=== PATIENT | male | born 1940 | race Caucasian/White ===

== ENCOUNTER → 2017-09-12 | Outpatient (CLI) | payer OTHER ==
[~2017-09-12] MED LIST: ASPCH81X PO; ASPI325T39 PO; CALCTAB5 PO; CYAN10005 PO; GLUC10007 PO; METO25TA56 PO; NAPR-22 PO; PRLSR20 PO; RSTOPS OP; SIMV20TA2 PO
[2017-09-12 11:13] LABS: BASO % 0.5 %; BASO ABS # 0.02 K/uL (0-0.2); EOS % 6.3 %; EOS ABS # 0.26 K/uL (0-0.5); HEMATOCRIT 41.5 % (42-52); HEMOGLOBIN 13.8 g/dL (14.0-18.0); IG# 0.01 K/uL (0.00-0.02); LYMPH % 27.6 %; LYMPH ABS # 1.14 K/uL (1.2-3.4); MEAN CELL VOLUME 92.6 fL (80-100); MEAN CORPUSCULAR HEMOGLOBIN 30.8 pg (25-34); MEAN CORPUSCULAR HGB CONC 33.3 g/dl (32-36); MEAN PLATELET VOLUME 10.5 fL (7.4-10.4); MONO % 10.7 %; MONO ABS # 0.44 K/uL (0.11-0.59); NEUT % 54.7 %; NEUT ABS # 2.26 K/uL (1.4-6.5); PLATELET COUNT 180 K/uL (130-400); RED CELL DISTRIBUTION WIDTH CV 14.8 % (11.5-14.5); RED CELL DISTRIBUTION WIDTH SD 50.6 fL (36.4-46.3); WHITE BLOOD COUNT 4.13 K/uL (4.8-10.8)
[2017-09-12 11:40] LABS: ALBUMIN 3.8 gm/dl (3.4-5.0); ALT/SGPT 24 U/L (12-78); AST/SGOT 25 U/L (15-37); BLOOD UREA NITROGEN 29 mg/dl (7-18); CALCIUM 8.8 mg/dl (8.5-10.1); CARBON DIOXIDE 26 mmol/L (21-32); CREATININE 1.11 mg/dl (0.60-1.40); GLUCOSE 87 mg/dl (70-99); POTASSIUM 4.4 mmol/L (3.5-5.1); SODIUM 140 mmol/L (136-145)
[2017-09-12 11:44] LABS: ALKALINE PHOSPHATASE 96 U/L (45-117); CHOLESTEROL 174 mg/dl (0-200); LDL CHOLESTEROL CALCULATED 96 mg/dl; TOTAL PROTEIN 7.3 gm/dl (6.4-8.2)
--- NOTE | 2017-09-18 09:03 | CODING QUERY MEDICAL NECESSITY ---
CQSUPPORTING DIAGNOSIS NEEDED A supporting diagnosis is required for the test/procedure performed on this patient in order for us to be reimbursed by the patient's insurance. Please provide a supporting diagnosis for the following test/procedure listed below next to the test name along with your signature. *If there is no additional diagnosis for this patient that would support the following test/procedure please document that below next to the test/procedure. Test(s)/Procedure(s) that require a supporting diagnosis: DOS 09/12/17 PROSTATE SPECIFIC TEST LIPID TEST Provider Signature: Date: Thank you Caitie [facility] Once completed, please kindly fax back to [phone] For questions please call [phone]
== END | disposition home or self-care (01) ==
LOC: C.LABBC 08:11
PROVIDERS: ATTEND Internal Medicine
DX: M54.5 Low back pain (principal); E53.8 Deficiency of other specified B group vitamins

== ENCOUNTER 2021-11-10 10:14 | Observation (INO) ==
--- NOTE | 2021-10-05 15:09 | PAT Medication Instructions ---
Medication Instructions Date of Service October 05, 2021 Home Medications Medication Instructions Recorded simvastatin 20 mg tablet (Zocor) 20 mg PO HS #90 tab 06/13/21 metoprolol tartrate 25 mg tablet 25 mg PO BID #180 tab 09/12/21 acetaminophen 325 mg tablet (Tylenol) 1 - 2 tabs PO Q6H PRN aspirin 81 mg tablet,delayed release (Aspir-) 81 mg PO QAM calcium carbonate 600 mg calcium (1,500 mg) tablet (Calcium) 600 mg PO QAM cyanocobalamin (vitamin B-12) 1,000 mcg tablet (Vitamin B-12) 1,000 mcg PO HS docusate sodium 100 mg capsule (Colace) 100 mg PO QAM simvastatin 20 mg tablet (Zocor) 20 mg PO HS metoprolol tartrate 25 mg tablet 25 mg PO BID glucosamine sulf dipot chlr,msm,chond 550 mg-C 30 mg-debbie 1 mg capsule (Glucosamine Chondroitin) 1 cap PO BID naproxen 500 mg tablet 500 mg PO BID omeprazole 20 mg capsule,delayed release 20 mg PO QAM ASK your surgeon for instructions naproxen 500 mg tablet 500 mg PO BID STOP taking 2 weeks before surgery glucosamine sulf dipot chlr,msm,chond 550 mg-C 30 mg-debbie 1 mg capsule (Glucosamine Chondroitin) 1 cap PO BID DO NOT take the morning of surgery calcium carbonate 600 mg calcium (1,500 mg) tablet (Calcium) 600 mg PO QAM docusate sodium 100 mg capsule (Colace) 100 mg PO QAM Take morning of surgery With a small sip of water, OTHERWISE NOTHING TO EAT OR DRINK AFTER MIDNIGHT: omeprazole 20 mg capsule,delayed release 20 mg PO QAM acetaminophen 325 mg tablet (Tylenol) 1 - 2 tabs PO Q6H PRN (okay to take up to 4 hours prior to surgery if needed) aspirin 81 mg tablet,delayed release (Aspir-) 81 mg PO QAM (unless surgeon directs otherwise) metoprolol tartrate 25 mg tablet 25 mg PO BID Take evening before surgery acetaminophen 325 mg tablet (Tylenol) 1 - 2 tabs PO Q6H PRN (if needed) cyanocobalamin (vitamin B-12) 1,000 mcg tablet (Vitamin B-12) 1,000 mcg PO HS simvastatin 20 mg tablet (Zocor) 20 mg PO HS metoprolol tartrate 25 mg tablet 25 mg PO BID Other Notes If you have any questions please call us at [phone] or [phone] or [phone] or [phone]
--- NOTE | 2021-10-11 14:46 | Anesthesiology Consultation ---
Date of Service October 11, 2021 Assessment & Plan (1) Encounter for pre-operative examination: Chart Review Chart Review: Acceptable Risk for Surgery (pending preop Covid testing results ) and Patient seen in Pre Admission Testing -Due to age- pt is NOT a Same Day Joint candidate Per PAT appt on 10/11/21, patient denies any recent travel or large group activities. No known Covid positive exposures or Covid related symptoms. No known Covid infection in the past 90 days. Pt is vaccinated for Covid. Preop Covid testing scheduled 11/08/21= will await results. Educated on importance of self quarantining, social distancing and wearing mask in public for the patient one week prior to surgery and after Covid testing done Pt seen by PCP 09/20/21= elevated BP- repeat BP WNL. Encouraged home monitoring. Please of CADclinically asymptomatic. Aortic stenosisstatus post AVR (2013). Clinically doing well. Follows routinely with cardiology. Chronic mild anemia. 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 Reviewed orthopedic note with him. He is scheduled for total shoulder replacement 11/2021. OA- continue with pain management. Seen by cardiology 03/14/21= aortic stenosis- s/p AVR- functioning properly per 02/2020 ECHO. Resolved valvular CM. Mild nonobstructive CAD- asymptomatic. Peripheral edema- suspect venous insufficiency- minimally symptomatic. " Continues to do very well from a cardiac standpoint. Exercising regularly with no new symptoms. No signs of heart failure on exam or new PVD on exam. Blood pressure reasonably controlled on repeat check today. Bioprosthetic aortic valve functioning appropriately on last echo 1 year ago. Repeat surveillance echo in 2 years. Continue current aspirin, beta-sachin, statin. Follow-up in 1 year." Teaching & Discussion Pre-Anesthesia Teaching/Discussion Notes: Instructed NPO after midnight before surgery,except medications with 15 cc of water. Medication instructions provided according to the PAT guidelines. History Surgery Operation Date: 11/10/21 08:45 Proposed Procedures p Right Total Shoulder Arthroplasty Julius - Norman Doyle DO Height/Weight Height: 5 ft 10.5 in Weight: 96.6 kg Allergies Allergy/AdvReac Type Severity Reaction Status Date / Time morphine AdvReac Mild GI SYMPTOMS Verified 10/05/21 14:02 Medications Home Medications Medication Instructions Recorded Confirmed Last Taken acetaminophen 325 mg tablet 1 - 2 tabs PO Q6H PRN 08/02/18 10/05/21 Unknown (Tylenol) aspirin 81 mg tablet,delayed 81 mg PO QAM 08/02/18 10/05/21 Unknown release (Aspir-) calcium carbonate 600 mg calcium 600 mg PO QAM 08/02/18 10/05/21 Unknown (1,500 mg) tablet (Calcium) cyanocobalamin (vitamin B-12) 1,000 mcg PO HS 08/02/18 10/05/21 Unknown 1,000 mcg tablet (Vitamin B-12) docusate sodium 100 mg capsule 100 mg PO QAM 08/02/18 10/05/21 Unknown (Colace) simvastatin 20 mg tablet (Zocor) 20 mg PO HS #90 tab 06/13/21 10/05/21 Unknown metoprolol tartrate 25 mg tablet 25 mg PO BID #180 tab 09/12/21 10/05/21 Unknown glucosamine sulf dipot 1 cap PO BID 10/05/21 10/05/21 Unknown chlr,msm,chond 550 mg-C 30 mg-debbie 1 mg capsule (Glucosamine Chondroitin) naproxen 500 mg tablet 500 mg PO BID 10/05/21 10/05/21 Unknown omeprazole 20 mg capsule,delayed 20 mg PO QAM 10/05/21 10/05/21 Unknown release Past Medical History Medical History (Updated 10/11/21 @ 16:55 by Zahra King PA-C) Acid reflux Controlled and stable Aortic stenosis s/p AVR, well functioning per 2020 ECHO. 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 Postoperative atrial fibrillation with AVR No mention of a fib with most recent cardio records Exercise / Class Metabolic Activity II 4-5 Yardwork/Stairs/Walk up hill (one flight of stairs- no chest pain or SOB - rides bike when weather permits- 20 miles per day ) Past Family History Family History Father Heart disease Mother Heart disease Sister Colorectal cancer Brother Renal carcinoma Hypertension Other No family history of adverse response to anesthesia Denies family history of Ovarian cancer Prostate cancer Myocardial infarction Breast cancer Lung cancer Past Surgical History Surgical History History of arthroscopic knee surgery History of bilateral cataract extraction History of blepharoplasty History of cardiac cath (~02/19/14) @ [facility] prior to AVR History of colonoscopy History of sinus surgery pt states he fractured his skull above right eye and had area packed @ [facility] History of tooth extraction History of ventral hernia repair right sided S/P aortic valve replacement (~2013) @ [facility] [place]--bioprosthetic--follows with Dr. Barry [place] Past Anesthesia History No Hx of Anesthesia Complications and No Family Hx of Anesthesia Complications History of PONV No Hx of PONV and No Hx of Motion Sickness Social History Smoking Status: Former smoker Do You Dip or Chew Tobacco: No (quit snuff 30 yrs ago) Smoking End Date: quit 55yrs ago Hx Alcohol Use: No Hx Substance Use: No substance use type: does not use Review of Systems Patient denies chest pain, shortness of breath, dyspnea on exertion, reflux, cough, wheezing, palpitations. No hx of seizures, stroke, CT, apnea/snoring. No hx of blood clots or blood transfusions Physical Exam Vital Signs VITALS BP 162/87 (pt states usually better controlled- BP at PCP office 09/20/21 initially 161/98- but on recheck was 134/84) P 60 TEMP 97.7 SP02 96% RESP 16 Constitutional no acute distress ENMT Mouth: no TMJ clicking Thyromental Distance: > or= 3.5 Finger Breadths (3.5) Mallampati Class: II (smaller airway ) Missing molars/side teeth Permanet upper front implants Neck + limited neck extension (mild ) Respiratory normal respiratory effort; no respiratory distress Auscultation: lungs clear to auscultation bilaterally; no wheezes Cardiovascular Rate/Rhythm: regular rate and regular rhythm Heart Sounds: + murmur (I-II/ murmur ) Vessels: no carotid bruit Musculoskeletal Spine: no pain with cervical ROM Extremities: extremities normal to inspection Psychiatric Orientation: alert Lab Results Anesthesia Preop Results Results Anesthesia Widget: WBC 4.65 K/uL (4.8-10.8) L 10/11/21 Hgb 12.7 g/dL (14.0-18.0) L 10/11/21 Hct 38.1 % (42-52) L 10/11/21 Plt 172 K/uL (130-400) 10/11/21 Na 139 mmol/L (136-145) 10/11/21 K 5.1 mmol/L (3.5-5.1) 10/11/21 Cl 108 mmol/L (98-107) H 10/11/21 CO2 28 mmol/L (21-32) 10/11/21 BUN 27 mg/dl (6-23) H 10/11/21 Creat 1.01 mg/dl (0.6-1.4) 10/11/21 Glucose Level 85 mg/dl (70-99(Fasting)) 10/11/21 PT 10.3 Seconds (9.0-12.0) 10/11/21 PTT 26.2 Seconds (21.0-31.0) 10/11/21 INR 1.0 (0.9-1.1) 10/11/21 Blood Type A Positive 10/11/21 Antibody Screen NEGATIVE 10/11/21 Testing Electrocardiogram Date: 10/11/21 Rhythm with first-degree AV block at 61 bpm. Right bundle branch block. When compared to EKG from January 31, 2010PR interval has increased, right bundle branch block is now present per cardio. Chest X-Ray Date: 10/11/21 Findings: + NAD Unchanged left hemidiaphragmatic elevation. Echocardiogram Date: 03/01/20 EF: 55-60% LV Function: normal RWMA: + none Other Findings: + LVH (mild/concentric ) and + diastolic dysfunction (Grade I ) Normal RV size and function. LA moderately dilated Well seated bioprosthetic AV with expected transvalvular gradients. Mild to moderate MR. Mild TR. Mildly dilated ascending aorta. Compared to prior study on 02/19/17- MR now mild to moderate. No other significant changes
--- NOTE | 2021-11-10 06:32 | History & Physical Report ---
Date of Service November 10, 2021 Assessment & Plan (1) Rotator cuff arthropathy of right shoulder: We will proceed with a right reverse shoulder arthroplasty. Postoperatively he will be placed in a sling and kept overnight for postoperative medical management. He plans to use energy physical therapy upon discharge. History of Present Illness Chief Complaint: Cuff tear arthropathy of the right shoulder. Primary Care Provider: Juancho Jane MD Henrik is a pleasant 81-year-old male who is been doing with chronic worsening right shoulder pain. 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 It is quite painful. He has never had surgery to his right shoulder before. 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 After failing conservative treatment, he elected proceed with a right reverse shoulder arthroplasty. Allergies Allergy/AdvReac Type Severity Reaction Status Date / Time morphine AdvReac Mild GI SYMPTOMS Verified 10/05/21 14:02 Home Medications Medication Instructions Recorded Confirmed Type acetaminophen 325 mg tablet 1 - 2 tabs PO Q6H PRN 08/02/18 10/05/21 History (Tylenol) aspirin 81 mg tablet,delayed 81 mg PO QAM 08/02/18 10/05/21 History release (Aspir-) calcium carbonate 600 mg calcium 600 mg PO QAM 08/02/18 10/05/21 History (1,500 mg) tablet (Calcium) cyanocobalamin (vitamin B-12) 1,000 mcg PO HS 08/02/18 10/05/21 History 1,000 mcg tablet (Vitamin B-12) docusate sodium 100 mg capsule 100 mg PO QAM 08/02/18 10/05/21 History (Colace) simvastatin 20 mg tablet (Zocor) 20 mg PO HS #90 tab 06/13/21 10/05/21 Rx metoprolol tartrate 25 mg tablet 25 mg PO BID #180 tab 09/12/21 10/05/21 Rx glucosamine sulf dipot 1 cap PO BID 10/05/21 10/05/21 History chlr,msm,chond 550 mg-C 30 mg-debbie 1 mg capsule (Glucosamine Chondroitin) omeprazole 20 mg capsule,delayed 20 mg PO QAM 10/05/21 10/05/21 History release naproxen 500 mg tablet 500 mg PO BID PRN #60 tab 11/06/21 Rx Past Med/Surg History Medical History Acid reflux Controlled and stable Aortic stenosis s/p AVR, well functioning per 2020 ECHO. 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 Postoperative atrial fibrillation with AVR No mention of a fib with most recent cardio records Surgical History History of arthroscopic knee surgery History of bilateral cataract extraction History of blepharoplasty History of cardiac cath (~02/19/14) @ [facility] prior to AVR History of colonoscopy History of sinus surgery pt states he fractured his skull above right eye and had area packed @ [facility] History of tooth extraction History of ventral hernia repair right sided S/P aortic valve replacement (~2013) @ [facility] [place]--bioprosthetic--follows with Dr. Jhonny LOPEZ Family History Father Heart disease Mother Heart disease Sister Colorectal cancer Brother Renal carcinoma Hypertension Other No family history of adverse response to anesthesia Denies family history of Ovarian cancer Prostate cancer Myocardial infarction Breast cancer Lung cancer Social History Smoking Status: Former smoker Tobacco Type: Cigars Second Hand Exposure: No; Hx Alcohol Use: No Hx Substance Use: No Preferred Language: Kyrgyz Communication Ability: Effective Visual Impairment: Limited Hearing Ability: Normal Cleaning Associate Required: No Beliefs That Will Affect Care: None marital status: Current Living Situation: Spouse current occupational status: retired How many Children do You have: 5 Feels Safe at Home: Yes Childhood Exposure to Second-Hand Smoke: Yes (dad did when he was real young) caffeine: Yes (coffee ) Dental Care, Regularly: Yes Physical Activity Frequency: 5-6 Times per Week Physical Activity Frequency Comment: rides his bike Seatbelt Use: never Sunscreen Use: No Assistive Devices: Glasses Review of Systems All systems reviewed & are unremarkable except as noted in HPI & below. Physical Exam On physical examination of the right shoulder, he only has about 10 degrees forward elevation 10 degrees of abduction. Passively I can get him through a near full range of motion. He has a palpable 2 out of 5 muscle strength throughout. Constitutional WD/WN, vitals as above Eyes PERRL, conjunctivae normal, anicteric sclerae ENMT external ear and nose normal, oropharynx normal Neck trachea midline, no thyromegaly Respiratory normal respiratory effort Cardiovascular RRR, no murmur, no edema Gastrointestinal (Abdomen) normal bowel sounds, soft, nontender, no hepatosplenomegaly Psychiatric A+Ox3, euthymic affect Results & Data Results & Data Laboratory Results . Diagnostic Findings X-rays of the right shoulder do show superior migration of the humeral head of the glenoid. The humeral heads articulating with the acromium. There is significant arthritis throughout. PG Care Time/CCT Total # of Minutes Spent Total Time Spent with Patient: Total time spent is greater than 50% in coordination of care (as documented) at patient's floor/unit and/or counseling patient: Coding Level of Care Code None Diagnoses Rotator cuff arthropathy of right shoulder M12.811
[~2021-11-10 10:14] MED LIST changes: +ACETAMINOPHEN 500 MG TAB PO SCH; -ASPCH81X PO; -ASPI325T39 PO; +BUPIVACAINE 0.5 % 5 MG/1 ML PF 10ML VIAL ONE; -CALCTAB5 PO; -CYAN10005 PO; +FAMOTIDINE 20 MG TAB PO SCH; +GABAPENTIN 300 MG CAP PO SCH; -GLUC10007 PO; +Ketorolac (*for OR use only*) 30 MG, dexAMETHasone 4 MG, KETAMINE HCL (**OR use only) 1... INFIL SCH; +LR 15ML/HR IV SCH; +LR 60ML/HR IV SCH; -METO25TA56 PO; -NAPR-22 PO; -PRLSR20 PO; -RSTOPS OP; -SIMV20TA2 PO; +TRANEXAMIC ACID 1,000 MG **IV Intra-op IV SCH; +TRANEXAMIC ACID 1,000 MG **IV Pre-op IV SCH; +ceFAZolin 2000MG 2,000 MG/15 ML SYR IV SCH; +dexAMETHasone 4 MG TAB PO SCH
[2021-11-10] MEDS ORDERED: DEXAMETHASONE SOD INJ 4 MG/ML VIAL ONE (11:22)
[2021-11-10] MEDS ORDERED: PROPOFOL IV EMULSION 10 MG/ML 20 ML VIAL IV ONE (11:22)
[2021-11-10] MEDS ORDERED: LIDOCAINE 2% 2 ML VIAL/AMP(20MG/ML) INFIL ONE (11:22)
[2021-11-10] MEDS ORDERED: ONDANSETRON INJ 2 MG/ML 2 ML VIAL ONE (11:22)
[2021-11-10] MEDS ORDERED: fentaNYL citrate 100 MCG/2 ML VIAL ONE (11:22)
[2021-11-10] MEDS ORDERED: MIDAZOLAM HCL 1 MG/ML 2ML VIAL ONE (11:22)
[2021-11-10] MEDS ORDERED: ONDANSETRON INJ 2 MG/ML 2 ML VIAL IV PRN ×2 (12:40→15:48)
[2021-11-10] MEDS ORDERED: PROMETHAZINE HCL 6.25 MG in SODIUM CHLORIDE 0.9% 50 ML IV PRN (12:40)
[2021-11-10] MEDS ORDERED: ATROPINE SULFATE 0.1 MG/ML 10ML SYR IV PRN (12:40)
[2021-11-10] MEDS ORDERED: ePHEDrine sulfate 50 MG/ML AMP IV PRN (12:40)
[2021-11-10] MEDS ORDERED: fentaNYL citrate 100 MCG/2 ML VIAL IV PRN (12:40)
[2021-11-10] MEDS ORDERED: ORTHO JOINT ANESTHETIC ONE (12:43)
[2021-11-10] MEDS ORDERED: KETOROLAC 30 MG/ML VIAL ONE (13:44)
--- NOTE | 2021-11-10 13:48 | Operative Report ---
PG Post Operative Report Pre & Post Diagnosis Operation Date: 11/10/21 12:30 Pre-Op Diagnosis: Right Shoulder Degenerative Joint Disease Post-Op Diagnosis: Right Shoulder Degenerative Joint Disease I identified the patient and participated in the time-out.: Yes Procedure Operation Date: 11/10/21 12:30 Actual Procedures p Right Reverse Total Shoulder Arthroplasty(Right) - Norman Doyle DO Surgeon Norman Doyle DO Coach Mechanic Norman Hale PAC Estimated Blood Loss 150 Findings Consistent with Post-Op Diagnosis Specimens Right humeral head Complications none Disposition Disposition: Recovery Room Indications Henrik is a pleasant 81-year-old male who is been doing with chronic worsening right shoulder pain. X-rays and clinical examination have been diagnostic for advanced cuff arthropathy of the right shoulder. After failing conservative treatment, he elected proceed with a right reverse shoulder arthroplasty. Description of Procedure Implants used: I used a Biomet Comprehensive reverse total shoulder arthroplasty system with a size 19 press fit micro humeral stem, a standard humeral tray and a standard humeral bearing, a 25 mm large augment baseplate with a 6.5 mm central screw and superior and inferior locking screws, and a size 40 mm eccentric glenosphere. Henrik arrived at [facility] for the above procedure. He was seen in the preoperative holding area and the operative extremity was identified and signed. He was given a preoperative antibiotic, TXA, and an interscalene nerve block. He was taken back to the operating room, laid on table in supine position, and put under general anesthesia. He was then put into the beachchair position. The shoulder was then prepped and draped in sterile fashion. A timeout was done and the patient and the operative extremity was properly identified. A deltopectoral approach was used. Dissection was taken down through the fascia and the deltoid was retracted laterally and the conjoined tendon was retracted medially. The anterior shoulder was exposed. The biceps tendon was chronically torn. The subscapularis was then directly released off the lesser tuberosity with a peel technique. The inferior capsule was released and the humeral head was dislocated. A canal finding reamer was sent down the center of the humeral canal. Sequential reaming up to a size 19 reamer was done. Off that reamer, a proximal humeral resection guide was placed. The proximal humerus was resected at 135 of inclination and 25 of retroversion. Osteophytes were then removed and the glenoid was exposed. Time was spent doing a complete capsular and labral release. A ZimmerInforama Signature One guide was then attached onto the anterior rim of the glenoid. A 3.2 mm Steinmann pin was then placed in the reverse total lee ulder arthroplasty hole. The glenoid baseplate was then reamed. The final size 25 mm large augment baseplate was then impacted in the place. A 6.5 mm central screw was then placed followed by superior and inferior locking screws. A 40 mm eccentric glenosphere was then impacted into place. Surrounding soft tissues were then injected with 100 cc an orthopedic pain control cocktail. The proximal humerus was then exposed. Sequential broaching of the humerus up to a size 19 broach was done. Off that broach a standard humeral tray was trialed. The shoulder was then reduced, brought through a full range of motion, and felt to be stable. The shoulder was then dislocated and the broach was removed. The final size 19 micro press-fit humeral stem was then impacted into place. A standard humeral bearing was then snapped onto a standard humeral tray. The humeral tray was then impacted onto the humeral stem. The shoulder was once again reduced, brought through a full range of motion, and felt to be stable. The inferior aspect of the subscapularis was tenodesed back to the humeral shaft. A dilute betadyne lavage was then done for 3 minutes. The joint was then irrigated with normal saline solution. Hemostasis was obtained. The interval was closed with 2-0 Vicryl suture. The skin was then closed with 2-0 Vicryl and johnny. A Silverlon dressing was placed and the arm was rested in a regular arm sling. He was then extubated and transferred to a hospital bed. He taken to the postanesthesia care unit in stable condition. He tolerated the procedure well. Norman Hale PA-C, was present for the entire procedure. He was critical for patient positioning, prepping, draping, retraction exposure, wound closure and application of sterile dressing. I attest to the content of the Intraoperative Record and any orders documented therein. Any exceptions are noted below.
[2021-11-10] MEDS ORDERED: ePHEDrine sulfate 50 MG/ML AMP ONE (13:49)
--- NOTE | 2021-11-10 14:55 | Anesthesiology Progress Note ---
Date of Service November 10, 2021 Anesthesia Post Procedure Vital Signs Vital Signs: Temp Pulse Pulse Resp BP Pulse Ox 11/10/21 14:45 75 23 127/91 96 11/10/21 14:35 76 21 110/93 95 11/10/21 14:25 75 20 148/91 H 100 11/10/21 14:15 75 15 129/90 100 11/10/21 14:07 36.1 C L 74 16 156/91 H 100 11/10/21 11:05 36.5 C 81 18 154/96 H 96 Transfer of Care Handoff Completed per policy Notes Mental Status: alert / awake / arousable and participated in evaluation Patient Amnestic to Procedure: Yes Nausea / Vomiting: adequately controlled Pain: adequately controlled Airway Patency, RR, SpO2: stable & adequate BP & HR: stable & adequate Hydration State: stable & adequate Anesthetic Complications: no major complications apparent and Pt Satisfied with anesthetic care
--- NOTE | 2021-11-10 15:44 | XRay Report ---
XR shoulder RT min 2V routine CLINICAL HISTORY: Post shoulder surgery COMPARISON STUDY: Right shoulder 01/14/2010. FINDINGS: Interval reverse right total shoulder arthroplasty. The hardware appears intact. No fractur e or dislocation. Skin johnny are in place. Soft tissue gas at the joint space consistent with the p ostoperative change. There are poststernotomy changes. IMPRESSION: Status post reverse right total shoulder arthroplasty. No evidence for hardware complica tion. ACT 112: Negative or not required by law. Electronically signed by: Kenyon Vazquez M.D. 11/10/2021 3:43 PM
[2021-11-10] MEDS ORDERED: oxyCODONE HCL IR 5 MG TAB (IMMEDIATE RELEASE) PO PRN (15:48)
[2021-11-10] MEDS ORDERED: MAGNESIUM HYDROXIDE SUSP 30 ML UDC PO PRN (15:48)
[2021-11-10] MEDS ORDERED: NALOXONE HCL 0.4 MG/1 ML VIAL/CARP IV PRN (15:48)
[2021-11-10] MEDS ORDERED: METOCLOPRAMIDE HCL INJ 5 MG/ML 2 ML VIAL IV PRN (15:48)
[2021-11-10] MEDS ORDERED: bisacodyL 10 MG SUPP PR PRN (15:48)
[2021-11-10] MEDS ORDERED: HYDROmorphone INJ 0.5 MG/0.5 ML SYR IV PRN (15:48)
[2021-11-10] MEDS: SODIUM CHLORIDE 0.9% 1000ML 1,000 ML IV SCH (17:14)
[2021-11-10] MEDS: KETOROLAC TROMETHAMINE 15 MG/ML VIAL IV SCH ×2 (17:52→23:23)
[2021-11-10] MEDS ORDERED: SENNA 8.6 MG TAB PO SCH (21:00)
[2021-11-10] MEDS ORDERED: SIMVASTATIN 20 MG TAB PO SCH (21:00)
[2021-11-10] MEDS: DOCUSATE SODIUM 100 MG CAP PO SCH (21:09)
[2021-11-10] MEDS: ceFAZolin 2000MG 2,000 MG/15 ML SYR IV SCH (21:09)
[2021-11-10] MEDS: ASPIRIN 81 MG ECTAB PO SCH (21:09)
[2021-11-10] MEDS: METOPROLOL TARTRATE 25 MG TAB PO SCH (21:10)
[2021-11-10] MEDS: ACETAMINOPHEN 500 MG TAB PO SCH (21:24)
[2021-11-11] MEDS: SODIUM CHLORIDE 0.9% 1000ML 1,000 ML IV SCH (01:56)
[2021-11-11] MEDS: ceFAZolin 2000MG 2,000 MG/15 ML SYR IV SCH (04:49)
[2021-11-11] MEDS: ACETAMINOPHEN 500 MG TAB PO SCH (05:04)
[2021-11-11] MEDS: KETOROLAC TROMETHAMINE 15 MG/ML VIAL IV SCH (05:04)
--- NOTE | 2021-11-11 07:35 | Orthopedic Progress Note ---
Date of Service November 11, 2021 Assessment & Plan (1) Status post reverse total replacement of right shoulder: Overall is doing very well. Is not having much pain in the right shoulder. He will be seen by physical therapy today for ambulation and range of motion exercises. He can be discharged home later today. He will follow-up with orthopedics in 2 weeks. Alexandria Chester was seen and examined at bedside this morning. Overall is doing very well. Is not having much pain in the right shoulder. He was able to get some good sleep last night. He has no complaints.. Review of Systems All systems reviewed & are unremarkable except as noted in HPI & below. Physical Exam On physical examination of the right shoulder, the dressing is clean and dry. His radial, median, and ulnar nerves are checked intact at his wrist. His axillary nerve was not checked yet.. Results & Data Results & Data Laboratory Results . Diagnostic Findings Postoperative x-rays of the right shoulder show the prosthesis to be in anatomic alignment without any evidence of fracture, desiccation, or loosening. PG Care Time/CCT Total # of Minutes Spent Total Time Spent with Patient: Total time spent is greater than 50% in coordination of care (as documented) at patient's floor/unit and/or counseling patient: Coding Level of Care Code 32584 Post Operative Follow-Up Diagnoses Status post reverse total replacement of right shoulder Z96.611
--- NOTE | 2021-11-11 07:36 | Discharge Summary ---
Date of Service November 11, 2021 Admission HPI (Per Admitting) Henrik is a pleasant 81-year-old male who is been doing with chronic worsening right shoulder pain. 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 It is quite painful. He has never had surgery to his right shoulder before. 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 After failing conservative treatment, he elected proceed with a right reverse shoulder arthroplasty. Admission Exam (Per Admitting) On physical examination of the right shoulder, he only has about 10 degrees forward elevation 10 degrees of abduction. Passively I can get him through a near full range of motion. He has a palpable 2 out of 5 muscle strength throughout. Principal Diagnosis Same as "Discharge Diagnosis" noted below under Discharge Instructions. Discharge Exam On physical examination of the right shoulder, the dressing is clean and dry. His radial, median, and ulnar nerves are checked intact at his wrist. His axillary nerve was not checked yet.. Discharge Data Procedures Performed Operation Date: 11/10/21 12:30 Actual Procedures p Right Reverse Total Shoulder Arthroplasty(Right) - Norman Doyle DO Ordered Studies 11/10/21 05:00 US - OR guided needle placemen Routine Hospital Course (1) Status post reverse total replacement of right shoulder: On November 10, 2021 Henrik arrived at [facility] and underwent a right reverse shoulder replacement without complication. He had a general anesthetic and a right interscalene nerve block. Postoperatively he was placed in an arm sling and transferred to the general orthopedic floors. His hospital course was uneventful. On postop day #1 his vital signs were stable his pain was well controlled. He was able to participate well with physical therapy doing ambulation and range of motion exercises. He was then discharged to home. He will follow up with orthopedics in 2 weeks. PG Care Time/CCT Total # of Minutes Spent Total Time Spent with Patient: Total time spent is greater than 50% in coordination of care (as documented) at patient's floor/unit and/or counseling patient: Discharge Plan Discharge Items Patient Disposition: Home - Home Health Services Reason For Visit: Right Shoulder Degenerative Joint Disease Discharge Diagnosis: Right reverse shoulder replacement Activity: As commented below Non-emergency contact: Surgeon Call non-emergency contact if: your wound has increased redness and your wound has increased drainage Follow-up/Referrals: Juancho Jane MD [Primary Care Provider] - Diet: Regular Addtl Attending Provider Instructions: Activity and Therapy Recommendations: * If you are using [facility] then therapy will be provided at your home until they feel you have accomplished all of your goals. * If you are using [facility] then Physical Therapy will be provided until they feel you are ready to start Outpatient Physical Therapy. * If you are not using home therapy then Outpatient Physical Therapy should start about 3-5 days from your day of surgery. Therapy will last about 8-12 weeks * Wear your sling for 3 weeks, unless otherwise instructed. You may remove your sling to shower and to dress, but otherwise, you should be in your sling at all times, including while sleeping * The shoulder replacement is very stable and you can use your hand while in the sling * You were shown a series of exercises in the hospital. Do these exercises daily including the exercises you were shown in physical therapy. Medications: * Narcotic You will likely be sent home from the hospital with a prescription for the narcotic pain medication that worked best throughout your stay. * Other medications may be prescribed for specific circumstances. If you have any questions, please call the office at . * Resume previous home medications unless otherwise instructed Dressing Care: Leave the Silverlon dressing in place for 7 days. After 7 days you may remove the dressing. If the incision is not draining then you may leave the johnny open to air. If there is a little bit of drainage or if the johnny are getting stuck on your clothing then cover the incision with a dry dressing. The johnny will be removed at your 2 week follow-up appointment. Showering: You may shower with the Silverlon dressing in place. Do not let the shower spray hit the dressing directly. Pat the Silverlon dressing dry. If the dressing becomes wet underneath, then simply remove the dressing. Keep the incision dry until you are 7 days out from the day of surgery. After 7 days you may remove the Silverlon dressing and shower with the johnny exposed. Let soapy water run over the johnny and pat them dry. Do not scrub or soak the incision. Things To Watch For: * Drainage from the incision site that occurs more than one week after your surgery. * Increased redness at the incision site. * Fever above 102 degrees Fahrenheit. * Unusual chest pain or shortness of breath. * Call [facility] at with any of the above problems Follow-Up Visit: Follow-up with Dr. Doyle's PA (Norman Hale) 2-3 weeks after your day of surgery . He will remove your johnny and answer any questions. If you have any additional questions or concerns, Dr Doyle is usually in the office at the same time and will be available An appointment was probably scheduled when you signed-up for surgery in the office. If you have any questions call More detailed instructions as well as Frequently Asked Questions were provided in a folder by our office when you signed-up for surgery. Please review these instructions when you get home. If you have any further questions or concerns, please feel free to call the office at [phone] Pending Studies at Discharge: No Stand-Alone Forms: My [facility] Medications and DC Order Prescriptions: New tramadol 50 mg tablet 50 mg PO Q6H PRN (Reason: pain) Qty: 30 RF: 0 Continued simvastatin [Zocor] 20 mg tablet 20 mg PO HS Qty: 90 RF: 3 metoprolol tartrate 25 mg tablet 25 mg PO BID Qty: 180 RF: 3 naproxen 500 mg tablet 500 mg PO BID PRN (Reason: pain) Qty: 60 RF: 5 acetaminophen [Tylenol] 325 mg Tablet 1 - 2 tabs PO Q6H PRN (Reason: Pain) RF: 0 cyanocobalamin (vitamin B-12) [Vitamin B-12] 1,000 mcg Tablet 1,000 mcg PO HS RF: 0 aspirin [Aspir-81] 81 mg Tablet,Delayed Release (Dr/Ec) 81 mg PO QAM RF: 0 calcium carbonate [Calcium 600] 600 mg calcium (1,500 mg) Tablet 600 mg PO QAM RF: 0 docusate sodium [Colace] 100 mg Capsule 100 mg PO QAM RF: 0 Glucosamine Chondroitin 550-30-1 mg Capsule 1 cap PO BID RF: 0 omeprazole 20 mg capsule,delayed release(DR/EC) 20 mg PO QAM RF: 0 Discharge Orders: Discharge Order (Routine); Ordered 11/11/21 Ordered By: Norman Doyle Admission Data Admit Date/Time: 11/10/21 14:09 Attending Provider: Norman Doyle Admit Provider: Norman Doyle Primary Care Provider: Juancho Jane
[2021-11-11] MEDS ORDERED: dexAMETHasone 4 MG TAB PO SCH (08:00)
[2021-11-11] MEDS: METOPROLOL TARTRATE 25 MG TAB PO SCH (08:49)
[2021-11-11] MEDS: DOCUSATE SODIUM 100 MG CAP PO SCH (08:49)
[2021-11-11] MEDS: ASPIRIN 81 MG ECTAB PO SCH (08:50)
[2021-11-11] MEDS ORDERED: ASPIRIN 81 MG ECTAB PO SCH (09:00)
[2021-11-11] MEDS ORDERED: MULTIVITAMIN TAB PO SCH (09:00)
[2021-11-11] MEDS ORDERED: PANTOprazole 40 MG TAB PO SCH (09:00)
== END 2021-11-11 11:20 | disposition home health service (06) ==
LOC: 3W 10:14 → ASU 10:14

== ENCOUNTER 2024-02-17 06:25 | Observation (INO) ==
--- NOTE | 2023-12-30 15:07 | PAT Medication Instructions ---
Medication Instructions Date of Service December 30, 2023 Home Medications Medication Instructions Recorded apixaban 5 mg tablet (Eliquis) 5 mg PO BID 90 days #180 tabs 05/14/23 metoprolol tartrate 25 mg tablet 25 mg PO BID #180 tabs 10/29/23 simvastatin 20 mg tablet (Zocor) 20 mg PO HS #90 tabs 11/21/23 tramadol 50 mg tablet 50 mg PO Q8H PRN pain #30 tabs 12/10/23 omeprazole 20 mg capsule,delayed 20 mg PO QAM #90 caps 12/17/23 release Medication List: acetaminophen 325 mg tablet (Tylenol) 1 - 2 tabs PO Q6H PRN Pain calcium carbonate (Calcium 600) 600 mg PO QAM cyanocobalamin (vitamin B-12) 1,000 mcg tablet (Vitamin B-12) 1,000 mcg PO HS docusate sodium 100 mg capsule (Colace) 100 mg PO QAM glucosamine sulf dipot chlr,msm,chond 550 mg-C 30 mg-debbie 1 mg capsule (Glucosamine Chondroitin) 1 cap PO BID aspirin 81 mg tablet,delayed release 81 mg PO QAM apixaban 5 mg tablet (Eliquis) 5 mg PO BID 90 days metoprolol tartrate 25 mg tablet 25 mg PO BID simvastatin 20 mg tablet (Zocor) 20 mg PO HS tramadol 50 mg tablet 50 mg PO Q8H PRN pain omeprazole 20 mg capsule,delayed release 20 mg PO QAM buspirone 10 mg tablet 5 - 10 mg PO Q8H anxiety losartan 25 mg tablet 25 mg PO QAM MEDICATION INSTRUCTIONS: ASK your prescriber and surgeon aspirin 81 mg tablet,delayed release 81 mg PO QAM apixaban 5 mg tablet (Eliquis) 5 mg PO BID (for spinal anesthesia: will need to hold Eliquis/apixaban at least 72 hours prior to surgery) STOP taking 2 weeks before surgery glucosamine sulf dipot chlr,msm,chond 550 mg-C 30 mg-debbie 1 mg capsule (Glucosamine Chondroitin) 1 cap PO BID DO NOT take the morning of surgery losartan 25 mg tablet 25 mg PO QAM docusate sodium 100 mg capsule (Colace) 100 mg PO QAM calcium carbonate (Calcium 600) 600 mg PO QAM Take morning of surgery With a small sip of water, OTHERWISE NOTHING TO EAT OR DRINK AFTER MIDNIGHT: buspirone 10 mg tablet 5 - 10 mg PO Q8H anxiety acetaminophen 325 mg tablet (Tylenol) 1 - 2 tabs PO Q6H PRN Pain (if needed) metoprolol tartrate 25 mg tablet 25 mg PO BID tramadol 50 mg tablet 50 mg PO Q8H PRN pain (if needed) omeprazole 20 mg capsule,delayed release 20 mg PO QAM Take evening before surgery buspirone 10 mg tablet 5 - 10 mg PO Q8H anxiety acetaminophen 325 mg tablet (Tylenol) 1 - 2 tabs PO Q6H PRN Pain (if needed) metoprolol tartrate 25 mg tablet 25 mg PO BID cyanocobalamin (vitamin B-12) 1,000 mcg tablet (Vitamin B-12) 1,000 mcg PO HS simvastatin 20 mg tablet (Zocor) 20 mg PO HS tramadol 50 mg tablet 50 mg PO Q8H PRN pain Other Notes If you have any questions please call us at [phone] or [phone] or [phone] or [phone]
--- NOTE | 2024-01-07 12:09 | Anesthesiology Consultation ---
Date of Service January 07, 2024 Assessment & Plan (1) Encounter for pre-operative examination: Chart Review Chart Review: Acceptable Risk for Surgery (pending stress ECHO Results 01/21, final cardio clearance and preop PCP evaluation ) and Patient seen in Pre Admission Testing - Awaiting stress ECHO 01/22/24 ([place]) - Awaiting final cardio clearance ([place] cardio- awaiting stress test results) - Awaiting PCP preop office visit (PCP office scheduling) Per PCP workload response in regards to anemia 01/07/24= "He should be fine to continue with the right TKA on 02/16 just based on the Hgb alone however we will get him scheduled for Preop eval. Typically we will need a separate appointment for Preop evaluation and he will need clearance from Cardio as well (looks like they have already ordered stress echo) " - Patient is NOT an ideal OPJ candidate (currently 23 hour obs) Per PAT appt on 01/07/24, no recent illness/disease exposures, illness related symptoms, or recent illness/disease positive tests. Will leave to surgeon's discretion if preop Covid testing needed Patient seen by cardiology 12/31/2023 = patient seen for follow-up and in anticipation of upcoming orthopedic surgery. Patient is to undergo right TKA. HypertensionBP adequately controlled. Continue current meds. Atrial fibrillationcontinue Eliquis. Status post aortic valve replacementwill be undergoing baseline echo evaluation prior to stress echo for his upcoming surgery. Previously noted to have normally functioning bioprosthetic aortic valve with moderate LVH, moderate MR, moderate TR, and associated moderate left atrial enlargement. Nonocclusive CADno angina. Due to reduced activityrecommend undergoing dobutamine stress echo prior to surgery. Further recommendations pending results. Continue current medication. Atherogenic dyslipidemiacontinue statin. Preoperative cardiovascular examination: "Orthopedic surgery is considered an intermediate risk procedure. Previously the patient would have been considered low risk given his nonocclusive coronary disease, however, this has not been assessed in nearly a decade. I recommend that he undergo dobutamine stress echo. Further recommendations pending results . If he has high risk findings we will recommend coronary angiography." Teaching & Discussion Pre-Anesthesia Teaching/Discussion Notes: Instructed NPO after midnight before surgery,except medications with 15 cc of water. Medication instructions p rovided according to the PAT guidelines. History Surgery Operation Date: 02/17/24 11:55 Proposed Procedures p Right Total Knee Arthroplasty - Norman Doyle, Height/Weight Height: 5 ft 11 in Weight: 95.8 kg Allergies Allergy/AdvReac Type Severity Reaction Status Date / Time morphine AdvReac Mild GI SYMPTOMS Verified 12/31/23 14:06 Medications Home Medications Medication Instructions Recorded Confirmed Last Taken acetaminophen 325 mg tablet 1 - 2 tabs PO Q6H PRN Pain 08/02/18 12/31/23 11/10/21 07:30 (Tylenol) calcium carbonate (Calcium 600) 600 mg PO QAM 08/02/18 12/31/23 11/08/21 cyanocobalamin (vitamin B-12) 1,000 mcg PO HS 08/02/18 12/31/23 11/08/21 1,000 mcg tablet (Vitamin B-12) docusate sodium 100 mg capsule 100 mg PO QAM 08/02/18 12/31/23 11/08/21 (Colace) glucosamine sulf dipot 1 cap PO BID 10/05/21 12/31/23 11/08/21 chlr,msm,chond 550 mg-C 30 mg-debbie 1 mg capsule (Glucosamine Chondroitin) aspirin 81 mg tablet,delayed 81 mg PO QAM 04/23/23 12/31/23 Unknown release apixaban 5 mg tablet (Eliquis) 5 mg PO BID 90 days #180 tabs 05/14/23 12/31/23 Unknown metoprolol tartrate 25 mg tablet 25 mg PO BID #180 tabs 10/29/23 12/31/23 Unknown simvastatin 20 mg tablet (Zocor) 20 mg PO HS #90 tabs 11/21/23 12/31/23 Unknown tramadol 50 mg tablet 50 mg PO Q8H PRN pain #30 tabs 12/10/23 12/31/23 Unknown omeprazole 20 mg capsule,delayed 20 mg PO QAM #90 caps 12/17/23 12/31/23 Unknown release buspirone 10 mg tablet 5 - 10 mg PO Q8H anxiety 12/30/23 12/31/23 Unknown losartan 25 mg tablet 25 mg PO QAM 12/30/23 12/31/23 Unknown Past Medical History Medical History Acid reflux Controlled and stable Aortic stenosis s/p AVR 2013, well functioning per 05/2023 ECHO. 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 Exercise / Class Metabolic Activity III < 4 Walking/Shop/Light housework (no chest pain or SOB with flat surface ambulation- uses wheeled walker ) Past Family History Family History Father Heart disease Mother Heart disease Sister Colorectal cancer Brother Renal carcinoma Hypertension Son Melanoma Other No family history of adverse response to anesthesia Denies family history of Ovarian cancer Prostate cancer Myocardial infarction Breast cancer Lung cancer Past Surgical History Surgical History History of arthroscopic knee surgery History of bilateral cataract extraction History of blepharoplasty History of cardiac cath (~02/19/14) @ [facility] prior to AVR History of colonoscopy History of sinus surgery pt states he fractured his skull above right eye and had area packed @ [facility] History of tooth extraction History of total replacement of right shoulder joint History of ventral hernia repair right sided S/P aortic valve replacement (~2013) [place] [facility] [place]oprost[place]--follows with Dr. Mehul LOPEZ Past Anesthesia History No Hx of Anesthesia Complications and No Family Hx of Anesthesia Complications History of PONV No Hx of PONV and No Hx of Motion Sickness Social History Smoking Status: Never smoker Do You Dip or Chew Tobacco: No Hx Alcohol Use: Yes (quit 30+ years ago) Hx Substance Use: No substance use type: does not use Review of Systems Patient denies chest pain, shortness of breath, dyspnea on exertion, cough, wheezing, palpitations. No hx of seizures, stroke, DC, apnea/snoring. No hx of blood clots or blood transfusions Physical Exam Vital Signs VITALS BP 146/87 P 83 TEMP 97.5 SP02 97% RESP 16 Constitutional no acute distress ENMT Mouth: no TMJ clicking Thyromental Distance: > or= 3.5 Finger Breadths (4.0) Mallampati Class: II Missing molars Top front teeth capped Neck neck extension not limited Respiratory normal respiratory effort; no respiratory distress Auscultation: lungs clear to auscultation bilaterally; no wheezes Cardiovascular Heart Sounds: no murmur Vessels: no carotid bruit Irregularly irregular- rate controlled Musculoskeletal Spine: no pain with cervical ROM Extremities: extremities normal to inspection Psychiatric Orientation: alert Lab Results Anesthesia Preop Results Results Anesthesia Widget: WBC 5.21 K/ul (4.8-10.8) 01/07/24 Hgb 11.4 g/dl (14.0-18.0) L 01/07/24 Hct 35.6 % (42.0-52.0) L 01/07/24 Plt 174 K/uL (130-400) 01/07/24 Na 137 mmol/L (136-145) 01/07/24 K 4.5 mmol/L (3.5-5.1) 01/07/24 Cl 106 mmol/L (98-107) 01/07/24 CO2 25 mmol/L (21-32) 01/07/24 BUN 20 mg/dl (6-23) 01/07/24 Creat 1.01 mg/dl (0.6-1.4) 01/07/24 Glucose Level 94 mg/dl (70-99(Fasting)) 01/07/24 PT 11.4 Seconds (9.0-12.0) 01/07/24 PTT 31 Seconds (21-31) 01/07/24 INR 1.0 (0.9-1.1) 01/07/24 Blood Type A Positive 01/07/24 Antibody Screen NEGATIVE 01/07/24 Testing Laboratory Results Anemia - mildly worsened from previous- did send workload note to PCP to see if further work up needed prior to surgery; surgeon's office also informed Electrocardiogram Date: 01/07/24 Findings: + AFIB @ (82bpm) Left axis deviation Incomplete RBBB Chest X-Ray Date: 01/07/24 FINDINGS: PA and lateral chest radiographs are compared to study dated 04/23/2023. The patient is status post midline sternotomy and cardiac surgery. The heart is enlarged measuring atherosclerotic calcification of the thoracic aorta. The pulmonary vasculature is not congested. There is mild elevation of the left hemidiaphragm. Scarring/atelectasis is seen at both lung bases. No airspace consolidation or pleural effusion is identified. There is no pneum othorax. The bony thorax appears intact. Right shoulder arthroplasty is in place. Advanced arthritic change is seen in the left shoulder. Degenerative change is noted in the thoracic spine. IMPRESSION: Cardiomegaly with no active disease in the chest. Echocardiogram Date: 05/23/23 EF: 55 to 60% LV Function: normal RWMA: + none Other Findings: + LVH (Moderate/concentric) RV is normal in size and function Bioprosthetic aortic valve is well-seated and functions normally. Gradient is normal for this prosthetic aortic valve Moderate MR Left atrium moderately dilated Moderate TR RVSP is normal. Mildly dilated inferior vena cava
--- NOTE | 2024-02-13 12:22 | History & Physical Report ---
Date of Service February 13, 2024 Assessment & Plan (1) Osteoarthritis of right knee: We will proceed with a right total knee arthroplasty. Postoperatively he will be started on Eliquis for DVT prophylaxis and kept overnight in the hospital for postop medical management. He plans to use energy physical therapy upon discharge. History of Present Illness Chief Complaint: Osteoarthritis of the right knee. Primary Care Provider: Haylee HartleyDO [place] is a pleasant 83-year-old male who has been dealing with chronic increasing right knee pain. X-rays and clinical examination have been diagnostic for advanced osteoarthritis to the right knee. He has failed conservative treatment including injections and anti-inflammatories. He is to the point where he is using a rolling walker. He has elected to proceed with a right total knee arthroplasty. Allergies Allergy/AdvReac Type Severity Reaction Status Date / Time morphine AdvReac Mild GI SYMPTOMS Verified 02/05/24 09:53 Home Medications Medication Instructions Recorded Confirmed Type acetaminophen 325 mg tablet 1 - 2 tabs PO Q6H PRN Pain 08/02/18 02/05/24 History (Tylenol) calcium carbonate (Calcium 600) 600 mg PO QAM 08/02/18 02/05/24 History cyanocobalamin (vitamin B-12) 1,000 mcg PO HS 08/02/18 02/05/24 History 1,000 mcg tablet (Vitamin B-12) docusate sodium 100 mg capsule 100 mg PO QAM 08/02/18 02/05/24 History (Colace) glucosamine sulf dipot 1 cap PO BID 10/05/21 02/05/24 History chlr,msm,chond 550 mg-C 30 mg-debibe 1 mg capsule (Glucosamine Chondroitin) aspirin 81 mg tablet,delayed 81 mg PO QAM 04/23/23 02/05/24 History release apixaban 5 mg tablet (Eliquis) 5 mg PO BID 90 days #180 tabs 05/14/23 02/05/24 Rx metoprolol tartrate 25 mg tablet 25 mg PO BID #180 tabs 10/29/23 02/05/24 Rx simvastatin 20 mg tablet (Zocor) 20 mg PO HS #90 tabs 11/21/23 02/05/24 Rx omeprazole 20 mg capsule,delayed 20 mg PO QAM #90 caps 12/17/23 02/05/24 Rx release buspirone 10 mg tablet 5 - 10 mg PO Q8H anxiety 12/30/23 02/05/24 History losartan 25 mg tablet 25 mg PO QAM 12/30/23 02/05/24 History tramadol 50 mg tablet 50 mg PO Q8H PRN pain #30 tabs 01/10/24 02/05/24 Rx Past Med/Surg History Problem List Atherogenic dyslipidemia Osteoarthritis of right knee Rotator cuff arthropathy of left shoulder Vitamin D deficiency Vitamin A deficiency Jose's cyst of knee Pain in left lower leg Left leg swelling Encounter for pre-operative examination Family history of colon cancer Arthritis, multiple joint involvement (Chronic) Medical History Atrial fibrillation On Eliquis Hypertension Chronic anemia Chronic and mild per PCP records Aortic stenosis s/p AVR 2013, well functioning per 05/2023 ECHO. H/o valvular cardiomyopathy- resolved Non-occlusive coronary artery disease Mild/nonobstructive per cardio records Per PCP note 09/20/21= Underwent catheterization 2013 revealing less than 30% proximal LAD, 30-40% mid LAD, 40-50% D2 stenosis. Moderate mitral regurgitation Moderate MR per 05/2023 ECHO Acid reflux Controlled and stable Hyperlipidemia Chronic lower back pain Chronic and stable Hearing loss in left ear No hearing aid Surgical History Status post reverse total replacement of right shoulder (~11/2021) S/P aortic valve replacement (~2013) [place] [facility] [place]--follows with Dr. Mehul LOPEZ History of ventral hernia repair right sided History of tooth extraction History of blepharoplasty History of bilateral cataract extraction History of cardiac cath (~02/19/14) @ [facility] prior to AVR History of sinus surgery pt states he fractured his skull above right eye and had area packed @ [facility] History of arthroscopic knee surgery History of colonoscopy Family History Father Heart disease Mother Heart disease Sister Colorectal cancer Brother Renal carcinoma Hypertension Son Melanoma Other No family history of adverse response to anesthesia Denies family history of Ovarian cancer Prostate cancer Myocardial infarction Breast cancer Lung cancer Social History Smoking Status: Never smoker Tobacco Type: Cigars Second Hand Exposure: Yes (hx, smoked); Do You Dip or Chew Tobacco: No; Tobacco Cessation Education Requested by Patient: No Hx Alcohol Use: Yes (quit 30+ years ago) Hx Substance Use: No Preferred Language: Frisian Communication Ability: Effective Visual Impairment: Limited Hearing Ability: Normal Trade Manager Required: No Beliefs That Will Affect Care: None marital status: / Current Living Situation: Alone current occupational status: retired How many Children do You have: 5 Other Information That Helps Us Care for You: No Feels Safe at Home: Yes Safety Concerns: Feels Safe At This Time Childhood Exposure to Second-Hand Smoke: Yes (dad did when he was real young) caffeine: Yes (coffee ) Dental Care, Regularly: Yes Physical Activity Frequency: 5-6 Times per Week Physical Activity Frequency Comment: doesn't ride bike anymore Seatbelt Use: never Sunscreen Use: No Assistive Devices: Glasses Review of Systems All systems reviewed & are unremarkable except as noted in HPI & below. Physical Exam On physical examination of right knee, he has decreased range of motion from 10 to 110 degrees. No instability. Pain of the distal femoral condyles.. Constitutional WD/WN, vitals as above Eyes PERRL, conjunctivae normal, anicteric sclerae ENMT external ear and nose normal, oropharynx normal Neck trachea midline, no thyromegaly Respiratory normal respiratory effort Cardiovascular RRR, no murmur, no edema Gastrointestinal (Abdomen) normal bowel sounds, soft, nontender, no hepatosplenomegaly Psychiatric A+Ox3, euthymic affect Results & Data Results & Data Laboratory Results . Diagnostic Findings X-rays of the right knee show severe osteoarthritis with joint space narrowing, osteophyte formation, and [id number] tubulation. PG Care Time/CCT Total # of Minutes Spent Total Time Spent with Patient: Total time spent is greater than 50% in coordination of care (as documented) at patient's floor/unit and/or counseling patient: Coding Level of Care Code None Diagnoses Osteoarthritis of right knee M17.11
[~2024-02-17 06:25] MED LIST changes: -ACETAMINOPHEN 500 MG TAB PO SCH; -FAMOTIDINE 20 MG TAB PO SCH; -GABAPENTIN 300 MG CAP PO SCH; -Ketorolac (*for OR use only*) 30 MG, dexAMETHasone 4 MG, KETAMINE HCL (**OR use only) 1... INFIL SCH; -LR 15ML/HR IV SCH; -LR 60ML/HR IV SCH; +ROPIVACAINE 0.5% 5 MG/ML 30 ML VIAL ONE; -TRANEXAMIC ACID 1,000 MG **IV Intra-op IV SCH; -TRANEXAMIC ACID 1,000 MG **IV Pre-op IV SCH; -ceFAZolin 2000MG 2,000 MG/15 ML SYR IV SCH; -dexAMETHasone 4 MG TAB PO SCH
--- NOTE | 2024-02-17 06:27 | History & Physical Bridge Note ---
Date of Service February 17, 2024 History & Physical Bridge Note I have examined the patient, reviewed the History & Physical and in the interval since the performance of the History & Physical I have noted the following changes of clinical significance: no changes noted
[2024-02-17] MEDS: LR 500ML BOLUS, THEN 15ML/HR IV SCH (07:00)
[2024-02-17] MEDS ORDERED: fentaNYL citrate PF 100 MCG/2 ML VIAL ONE (07:02)
[2024-02-17] MEDS ORDERED: PROPOFOL IV EMULSION 10 MG/ML 20 ML VIAL IV ONE ×3 (07:04→08:22)
[2024-02-17] MEDS ORDERED: ONDANSETRON INJ 2 MG/ML 2 ML VIAL ONE (07:04)
[2024-02-17] MEDS: LR 60ML/HR IV SCH (07:09)
[2024-02-17] MEDS: ACETAMINOPHEN 500 MG TAB PO SCH ×2 (07:10→14:51)
[2024-02-17] MEDS: FAMOTIDINE 20 MG TAB PO SCH (07:10)
[2024-02-17] MEDS: GABAPENTIN 300 MG CAP PO SCH (07:10)
[2024-02-17] MEDS: dexAMETHasone**PF** 10 MG/ML VIAL IV SCH (07:11)
--- NOTE | 2024-02-17 07:44 | Anesthesiology Consultation ---
Date of Service February 17, 2024 Assessment & Plan Chart Review Chart Review: Acceptable Risk for Surgery Consults Requested none History Surgery Operation Date: 02/17/24 08:00 Proposed Procedures p Right Total Knee Arthroplasty - Norman Doyle DO Height/Weight Height: 5 ft 11 in Weight: 93.8 kg Allergies Allergy/AdvReac Type Severity Reaction Status Date / Time morphine AdvReac Mild GI SYMPTOMS Verified 02/17/24 06:58 Medications Home Medications Medication Instructions Recorded Confirmed Last Taken acetaminophen 325 mg tablet 1 - 2 tabs PO Q6H PRN Pain 08/02/18 02/17/24 02/16/24 22:00 (Tylenol) calcium carbonate (Calcium 600) 600 mg PO QAM 08/02/18 02/17/24 02/16/24 07:00 cyanocobalamin (vitamin B-12) 1,000 mcg PO HS 08/02/18 02/17/24 02/16/24 22:00 1,000 mcg tablet (Vitamin B-12) docusate sodium 100 mg capsule 100 mg PO QAM 08/02/18 02/17/24 02/16/24 07:00 (Colace) glucosamine sulf dipot 1 cap PO BID 10/05/21 02/17/24 2 Weeks Ago chlr,msm,chond 550 mg-C 30 mg-debbie ~02/03/24 1 mg capsule (Glucosamine Chondroitin) aspirin 81 mg tablet,delayed 81 mg PO QAM 04/23/23 02/17/24 5 Days Ago release ~02/12/24 apixaban 5 mg tablet (Eliquis) 5 mg PO BID 90 days #180 tabs 05/14/23 02/17/24 5 Days Ago ~02/12/24 metoprolol tartrate 25 mg tablet 25 mg PO BID #180 tabs 10/29/23 02/17/24 02/17/24 06:00 simvastatin 20 mg tablet (Zocor) 20 mg PO HS #90 tabs 11/21/23 02/17/24 02/16/24 18:00 omeprazole 20 mg capsule,delayed 20 mg PO QAM #90 caps 12/17/23 02/17/24 02/17/24 06:00 release buspirone 10 mg tablet 5 - 10 mg PO Q8H anxiety 12/30/23 02/17/24 02/17/24 06:00 1/2 tab losartan 25 mg tablet 25 mg PO QAM 12/30/23 02/17/24 02/16/24 07:00 tramadol 50 mg tablet 50 mg PO Q8H PRN pain #30 tabs 01/10/24 02/17/24 02/16/24 22:30 Active Medications Generic Name Dose Route Start Last Admin Trade Name Freq PRN Reason Stop Dose Admin Acetaminophen 1,000 mg 02/17/24 06:00 02/17/24 07:10 Acetaminophen 500 Mg Tab PO 02/17/24 18:00 1,000 mg PREOP STEPHEN Administration Dexamethasone Sodium Phosphate 10 mg 02/17/24 06:00 02/17/24 07:11 DexamethasonePf 10 Mg/Ml Vial IV 02/17/24 18:00 10 mg PREOP STEPHEN Administration Famotidine 20 mg 02/17/24 06:00 02/17/24 07:10 Famotidine 20 Mg Tab PO 02/17/24 18:00 20 mg PREOP STEPHEN Administration Gabapentin 300 mg 02/17/24 06:00 02/17/24 07:10 Gabapentin 300 Mg Cap PO 02/17/24 18:00 300 mg PREOP STEPHEN Administration Lactated Ringer's 1,000 mls @ 15 mls/hr 02/17/24 06:00 02/17/24 07:00 Lr IV 02/17/24 18:00 15 mls/hr .Q24H STEPHEN Administration Lactated Ringer's 1,000 mls @ 60 mls/hr 02/17/24 06:00 02/17/24 07:09 Lr IV 02/17/24 22:39 Not Given .[id number] STEPHEN NPO Date Last Intake of Fluids: 02/16/24 Time Last Intake of Fluids: 20:00 Last Intake of Fluids Comment: Pt arrived chewing gum. Spit out upon arrival. Dr. Woodruff aware. Date Last Intake of Solids: 02/16/24 Time Last Intake of Solids: 19:00 Past Medical History Medical History Atrial fibrillation Hypertension Chronic anemia Aortic stenosis Non-occlusive coronary artery disease Moderate mitral regurgitation Acid reflux Hyperlipidemia Chronic lower back pain Hearing loss in left ear Past Family History Family History Father Heart disease Mother Heart disease Sister Colorectal cancer Brother Renal carcinoma Hypertension Son Melanoma Other No family history of adverse response to anesthesia Denies family history of Ovarian cancer Prostate cancer Myocardial infarction Breast cancer Lung cancer Past Surgical History Surgical History Status post reverse total replacement of right shoulder (~11/2021) S/P aortic valve replacement (~2013) History of ventral hernia repair History of tooth extraction History of blepharoplasty History of bilateral cataract extraction History of cardiac cath (~02/19/14) History of sinus surgery History of arthroscopic knee surgery History of colonoscopy Social History Smoking Status: Never smoker Do You Dip or Chew Tobacco: No Hx Alcohol Use: Yes (quit 30+ years ago) Hx Substance Use: No substance use type: does not use Physical Exam Vital Signs Last Vital Signs Temp 36.6 C 02/17/24 07:15 Pulse 87 02/17/24 07:15 Resp 20 02/17/24 07:15 BP 164/113 H 02/17/24 07:15 Pulse Ox 99 02/17/24 07:15 O2 Del Method Room Air 02/17/24 07:15
[2024-02-17] MEDS: TRANEXAMIC ACID 1,000 MG **IV Pre-op IV SCH (07:45)
[2024-02-17] MEDS: ceFAZolin 2000MG 2,000 MG/15 ML SYR IV SCH ×2 (08:05→15:48)
[2024-02-17] MEDS ORDERED: PHENYLEPHRINE 100MCG/ML 10ML SYR IV ONE (08:22)
[2024-02-17] MEDS: ORTHO JOINT ANESTHETIC ONE (08:45)
[2024-02-17] MEDS: ROPIV 0.5% 246mg, Ketorolac 30mg, EPINEPHrine 0.5mg in NSS INFIL SCH (08:46)
[2024-02-17] MEDS: TRANEXAMIC ACID 1,000 MG **IV Intra-op IV SCH (09:03)
--- NOTE | 2024-02-17 09:12 | Operative Report ---
PG Post Operative Report Pre & Post Diagnosis Operation Date: 02/17/24 08:00 Pre-Op Diagnosis: Right Knee Degnerative Joint Disease Post-Op Diagnosis: Right Knee Degnerative Joint Disease I identified the patient and participated in the time-out.: Yes Procedure Operation Date: 02/17/24 08:00 Actual Procedures p Right Total Knee Arthroplasty, Cemented(Right) - Norman Doyle DO Surgeon Norman Doyle DO Faucets Assembler Norman Hale PA-C Estimated Blood Loss 30 Findings Consistent with Post-Op Diagnosis Specimens Right femoral and tibial bone Description of Procedure Implants used: I used a Mary Carmen Persona total knee arthroplasty system with a size 10 standard PS femur, G tibia, 34 oval patella, and a size 12 CPS polyethylene bearing. All components were cemented in place with Biomet cement. Henrik arrived [facility] for the above procedure. He was seen in the preoperative holding area and the operative extremity was identified and signed. He was given a preoperative antibiotic, TXA, a spinal anesthetic and an adductor nerve block. He was taken back to the operating room and laid on the table in supine position. He was given basic sedation. The operative knee was then prepped and draped in sterile fashion. A timeout was done, and the patient and the operative extremity was properly identified. A midline incision was made directly over the patella. Dissection was taken down to the extensor mechanism. A medial parapatellar arthrotomy was used. The medial retinaculum was released and the fat pad was mostly excised. The knee was flexed and the ACL, PCL, and meniscus were removed. A drill was sent down the center of the femoral canal followed by an intramedullary atilio. Off that atilio a distal femoral cutting block was placed. 9 mm was resected off the distal femur at 5 of valgus. A posterior referencing AP sizing guide was then placed on the distal femur. The femur measured to be a size 10. 2 drill holes were placed in 3 of external rotation. A 4-in-1 cutting block was then impacted into place. Anterior, posterior, and chamfer cuts were then made. The proximal tibia was then exposed. An external tibial alignment guide was placed. A tibial cut guide was then anchored in place and the proximal tibia was then resected. The posterior aspect of the knee was then opened up and any additional meniscus fragments and osteophytes were removed. The tibia measured to be a size G. The tibial plate was then placed in the appropriate rotation and the tibia was drilled and punched. Trial components were then placed. I used a size 12 CPS polyethylene insert. The knee was brought through a full range of motion and felt to be stable. The peg holes for the femoral component were then drilled. The patella was then everted and 9 mm was resected off the posterior aspect of the patella. The patella measured to be a size 34 oval. 3 peg holes were then drilled. A trial patella was placed. The knee was once again brought through a full range of motion and felt to be stable. Trial components were then removed. The surrounding soft tissues were injected with 100 cc of an orthopedic pain control cocktail. All components were then cemented into place with Biomet cement. The final polyethylene insert was then snapped into place. Once cement was dry the tourniquet was deflated. Hemostasis was obtained. A dilute betadyne lavage was then done for 3 minutes. The joint was then irrigated with normal saline solution. The medial parapatellar arthrotomy was then closed with #1 Vicryl suture. The skin was closed with 2-0 Vicryl, 3-0V lock suture, and johnny. A soft compressive dressing was placed. He was then transferred to a hospital bed and taken to the postanesthesia care unit in stable condition. He tolerated the procedure well. Norman Hale PA-C, was present for the entire procedure. He was critical for patient positioning, prepping, draping, retraction exposure, wound closure and application of sterile dressing. I attest to the content of the Intraoperative Record and any orders documented therein. Any exceptions are noted below.
--- NOTE | 2024-02-17 10:04 | XRay Report ---
XR knee RT 1 or 2V routine CLINICAL HISTORY: Postoperative evaluation. COMPARISON: Right knee radiographs December 10, 2023. FINDINGS: Alignment of the total right knee arthroplasty is anatomic. There is no periprosthetic fra cture. No unexpected radiopaque foreign bodies are present. There are skin johnny. IMPRESSION: Expected findings following total right knee arthroplasty. ACT 112: Negative or not required by law. Electronically signed by: Edward Vo M.D. 02/17/2024 10:03 AM
--- NOTE | 2024-02-17 11:49 | Anesthesiology Progress Note ---
Date of Service February 17, 2024 Anesthesia Post Procedure Vital Signs Vital Signs: Temp Pulse Resp BP Pulse Ox O2 Del Method O2 Flow Rate 02/17/24 11:40 80 13 125/85 92 Room Air 02/17/24 11:30 86 14 115/76 99 Room Air 02/17/24 11:20 77 15 123/80 94 Room Air 02/17/24 11:10 90 13 124/80 95 Room Air 02/17/24 11:00 90 14 116/80 97 Room Air 02/17/24 10:50 86 10 L 117/83 95 Room Air 02/17/24 10:40 92 H 10 L 120/80 96 Oxymask 3 02/17/24 10:30 95 H 10 L 127/82 100 Oxymask 3 02/17/24 10:20 96 H 16 115/78 100 Oxymask 3 02/17/24 10:10 93 H 10 L 113/76 100 Oxymask 3 02/17/24 10:00 94 H 10 L 122/68 100 Oxymask 3 02/17/24 09:50 88 10 L 122/68 100 Oxymask 3 02/17/24 09:40 80 18 121/74 100 Oxymask 6 02/17/24 09:30 36.1 C L 84 12 126/70 100 Oxymask 6 02/17/24 07:30 153/108 H 02/17/24 07:15 36.6 C 87 20 164/113 H 99 Room Air Pain Intensity Right Knee: Pain Intensity: 2 Transfer of Care Handoff Completed per policy Notes Mental Status: alert / awake / arousable and participated in evaluation Nausea / Vomiting: adequately controlled Pain: adequately controlled Airway Patency, RR, SpO2: stable & adequate BP & HR: stable & adequate Hydration State: stable & adequate Neuraxial Anesthesia: was administered and sensory block is resolving Anesthetic Complications: no major complications apparent and Pt Satisfied with anesthetic care
[2024-02-17] MEDS ORDERED: HYDROmorphone INJ 0.5 MG/0.5 ML SYR IV PRN (12:25)
[2024-02-17] MEDS ORDERED: bisacodyL 10 MG SUPP PR PRN (12:25)
[2024-02-17] MEDS ORDERED: oxyCODONE HCL IR 5 MG TAB (IMMEDIATE RELEASE) PO PRN (12:25)
[2024-02-17] MEDS ORDERED: ONDANSETRON INJ 2 MG/ML 2 ML VIAL IV PRN (12:25)
[2024-02-17] MEDS ORDERED: NALOXONE HCL 0.4 MG/1 ML VIAL/CARP IV PRN (12:25)
[2024-02-17] MEDS ORDERED: METOCLOPRAMIDE HCL INJ 5 MG/ML 2 ML VIAL IV PRN (12:25)
[2024-02-17] MEDS ORDERED: MAGNESIUM HYDROXIDE SUSP 30 ML UDC PO PRN (12:25)
[2024-02-17] MEDS: SODIUM CHLORIDE 0.9% 1,000 ML IV SCH (13:10)
[2024-02-17] MEDS: KETOROLAC TROMETHAMINE 15 MG/ML VIAL IV SCH (13:42)
--- NOTE | 2024-02-17 14:51 | Hospitalist Consultation ---
Date of Consultation February 17, 2024 Assessment & Plan (1) Status post right knee replacement: Total right knee replacement Pain control, activity per primary team Resume Eliquis 9 AM 02/17, continue aspirin Net fluid intake documented 200 cc. Per review reports no complications, 30 cc estimated blood loss Right lower extremity neurovascularly intact at time of assessment. No drain in place. No pain on assessment. (2) PAF (paroxysmal atrial fibrillation): Paroxysmal A-fib Sinus at preoperative clearance, has a history of paroxysmal A-fib on Eliquis and beta-sachin - EKG on bedside assessment Afib. No new morphology change, no acute territorial ischemia. Chest pain free at bedside - Rate 100-140 at bedside, fluctuates with activity. Pt asymptomatic. BP stable - BMP, Mg pending. Optimize K 4.0, Mg 2.0. 1 g IV mag with 1 dose of oral added slightly contracted, 500cc LR bolus and 1 L of maintenance supplement added for mild volume contraction, p.o. encouraged - +Metoprolol 25mg x1 additional dose. Pt reprots he did take his AM metoprolol as directed. Moved to medical telemetry No signs of demand ischemia or hemodynamic compromise. Continue to follow and +mtp as needed after electrolyte and volume optimized (3) Non-occlusive coronary artery disease: Preoperative cardiac risk assessment History of nonobstructive CAD. Had no preoperative anginal symptoms. Had a low risk dobutamine stress echo. Patient was recommended to continue beta- sachin, cautious use of IV fluids due to LVH and moderate mitral regurg, and was recommended to restart Eliquis 5 mg twice daily soon as postoperative bleeding risk was adequately low per surgical team Saturating normally on room air, mucous membranes are slightly tacky, lungs are clear. No signs of CHF, appears slightly contracted. Was given cautious fluids as noted (4) Benign essential hypertension: Hypertension Losartan 25 mg daily Metoprolol 25 mg p.o. twice daily continued (5) Atherogenic dyslipidemia: Hyperlipidemia Continue Zocor (6) Acid reflux: Received perioperative famotidine GI prophylaxis No abdominal pain, no signs of acute flare/ulcer at time of consultatione (7) Hyperglycemia: Postoperative hyperglycemia with BSG 193 Denies history of diabetes, does not take antiglycemic's prior to admission A1c added Sliding scale insulin, conservative dosing added. Glucose checks AC/at bedtime. DM 2 diet Plan DVT prophylaxis: SCDs, resume Eliquis 02/17 Disposition: Medical telemetry for A-fib monitoring, IV beta-sachin availability Diet: Heart healthy. Switch to DM 2 due to postoperative hyperglycemia. CODE STATUS: Full code History of Present Illness Attending Physician: Norman Doyle, History of Present Illness Tavo is an 83-year-old male with a past medical history of paroxysmal A- fib, bioprosthetic AVR, hypertension who presented for scheduled right knee arthroplasty with Dr. Doyle s/p cemented right knee total arthroplasty 02/17/2024 for degenerative joint disease. Consulted for postoperative tachycardia Mr. Menezes is seen bedside with nursing staff present. Reports he is in extremely good spirits, he was very nervous about undergoing surgery this morning but is extremely excited now that the surgery is complete, reports that he feels great, has no pain in his knee or his leg, is able to wiggle his toes and flex at the hip, and is excited to be more active. He denies lightheadedness, dizziness. He denies fever chills or sweats. He has no chest pain and no palpitations. He endorses a history of A-fib on anticoagulation, he notes that whenever he is in A-fib he is not able to feel it so he does not know how often he is actually in A-fib. No preceding chest pain to admission. Medical History: Reviewed Medications: Reviewed. Took metoprolol this AM. Surgical History: Reviewed Family history: Reviewed Allergies: Reviewed Social History: Reviewed. Code Status: Full code Allergies Allergy/AdvReac Type Severity Reaction Status Date / Time morphine AdvReac Mild GI SYMPTOMS Verified 02/17/24 06:58 Home Medications Medication Instructions Recorded Confirmed Type acetaminophen 325 mg tablet 1 - 2 tabs PO Q6H PRN Pain 08/02/18 02/17/24 History (Tylenol) calcium carbonate (Calcium 600) 600 mg PO QAM 08/02/18 02/17/24 History cyanocobalamin (vitamin B-12) 1,000 mcg PO HS 08/02/18 02/17/24 History 1,000 mcg tablet (Vitamin B-12) docusate sodium 100 mg capsule 100 mg PO QAM 08/02/18 02/17/24 History (Colace) glucosamine sulf dipot 1 cap PO BID 10/05/21 02/17/24 History chlr,msm,chond 550 mg-C 30 mg-debbie 1 mg capsule (Glucosamine Chondroitin) aspirin 81 mg tablet,delayed 81 mg PO QAM 04/23/23 02/17/24 History release apixaban 5 mg tablet (Eliquis) 5 mg PO BID 90 days #180 tabs 05/14/23 02/17/24 Rx metoprolol tartrate 25 mg tablet 25 mg PO BID #180 tabs 10/29/23 02/17/24 Rx simvastatin 20 mg tablet (Zocor) 20 mg PO HS #90 tabs 11/21/23 02/17/24 Rx omeprazole 20 mg capsule,delayed 20 mg PO QAM #90 caps 12/17/23 02/17/24 Rx release buspirone 10 mg tablet 5 - 10 mg PO Q8H anxiety 12/30/23 02/17/24 History losartan 25 mg tablet 25 mg PO QAM 12/30/23 02/17/24 History tramadol 50 mg tablet 50 mg PO Q8H PRN pain #30 tabs 01/10/24 02/17/24 Rx cefadroxil 500 mg capsule 500 mg PO BID 10 days #20 caps 02/17/24 Rx tramadol 50 mg tablet 50 mg PO Q6H PRN pain #30 tabs 02/17/24 Rx Patient History Medical History Atrial fibrillation Hypertension Chronic anemia Aortic stenosis Non-occlusive coronary artery disease Moderate mitral regurgitation Acid reflux Hyperlipidemia Chronic lower back pain Hearing loss in left ear Surgical History Status post reverse total replacement of right shoulder (~11/2021) S/P aortic valve replacement (~2013) History of ventral hernia repair History of tooth extraction History of blepharoplasty History of bilateral cataract extraction History of cardiac cath (~02/19/14) History of sinus surgery History of arthroscopic knee surgery History of colonoscopy Family History Father Heart disease Mother Heart disease Sister Colorectal cancer Brother Renal carcinoma Hypertension Son Melanoma Other No family history of adverse response to anesthesia Denies family history of Ovarian cancer Prostate cancer Myocardial infarction Breast cancer Lung cancer Social History Smoking Status: Never smoker Tobacco Type: Cigars Second Hand Exposure: Yes (hx, smoked); Do You Dip or Chew Tobacco: No; Tobacco Cessation Education Requested by Patient: No Hx Alcohol Use: Yes (quit 30+ years ago) Hx Substance Use: No Preferred Language: Moldovan Communication Ability: Effective Visual Impairment: Limited Hearing Ability: Normal Service Worker Required: No Beliefs That Will Affect Care: None marital status: / Current Living Situation: Alone current occupational status: retired How many Children do You have: 5 Other Information That Helps Us Care for You: No Feels Safe at Home: Yes Safety Concerns: Feels Safe At This Time Childhood Exposure to Second-Hand Smoke: Yes (dad did when he was real young) caffeine: Yes (coffee ) Dental Care, Regularly: Yes Physical Activity Frequency: 5-6 Times per Week Physical Activity Frequency Comment: doesn't ride bike anymore Seatbelt Use: never Sunscreen Use: No Assistive Devices: Glasses Physical Exam Physical Exam: General: A&Ox3. NAD. Cooperative. HEENT: Atraumatic, normocephalic. Vision and hearing grossly intact Pulm: CTAB A&P. -wheezes, -rales, -rhonchi. Symmetrical chest rise. No increased work of breathing. No respiratory distress. Cardiac: irir, soft sm. Radial pulses intact and symmetrical. Abdominal: Nontender, nondistended, soft. BS present. Extremities: Right lower extremity with knee postoperative dressing in place. No drain. Ankle dorsiflexion/plantarflexion, toe flexion/extension is intact bilaterally without deficit or asymmetry. Sensation of soft touch is intact in hands and feet without deficit or asymmetry. PT pulses intact bilaterally. Cap refill is brisk in the hallux bilaterally Results & Data Results & Data Vital Signs (Past 12 Hours) Vital Signs Temp Pulse Pulse Resp BP Pulse Ox O2 Del Method 02/17/24 14:28 36.7 C 115 H 16 135/90 99 Room Air 02/17/24 13:32 36.6 C 96 H 16 147/93 H 99 Room Air 02/17/24 12:55 36.5 C 98 H 16 153/98 H 100 Room Air 02/17/24 12:30 Room Air 02/17/24 12:27 36.5 C 80 16 128/82 100 Room Air 02/17/24 12:10 82 16 122/76 94 Room Air 02/17/24 12:00 36.5 C 78 15 119/86 93 Room Air 02/17/24 11:50 81 13 122/77 93 Room Air 02/17/24 11:40 80 13 125/85 92 Room Air 02/17/24 11:30 86 14 115/76 99 Room Air 02/17/24 11:20 77 15 123/80 94 Room Air 02/17/24 11:10 90 13 124/80 95 Room Air 02/17/24 11:00 36.5 C 78 18 119/86 93 Room Air 02/17/24 11:00 90 14 116/80 97 Room Air 02/17/24 10:50 86 10 L 117/83 95 Room Air 02/17/24 10:40 92 H 10 L 120/80 96 Oxymask 02/17/24 10:30 95 H 10 L 127/82 100 Oxymask 02/17/24 10:20 96 H 16 115/78 100 Oxymask 02/17/24 10:10 93 H 10 L 113/76 100 Oxymask 02/17/24 10:00 94 H 10 L 122/68 100 Oxymask 02/17/24 09:50 88 10 L 122/68 100 Oxymask 02/17/24 09:40 80 18 121/74 100 Oxymask 02/17/24 09:30 36.1 C L 84 12 126/70 100 Oxymask 02/17/24 07:30 153/108 H 02/17/24 07:15 36.6 C 87 20 164/113 H 99 Room Air O2 Flow Rate 02/17/24 14:28 02/17/24 13:32 02/17/24 12:55 02/17/24 12:30 02/17/24 12:27 02/17/24 12:10 02/17/24 12:00 02/17/24 11:50 02/17/24 11:40 02/17/24 11:30 02/17/24 11:20 02/17/24 11:10 02/17/24 11:00 02/17/24 11:00 02/17/24 10:50 02/17/24 10:40 3 02/17/24 10:30 3 02/17/24 10:20 3 02/17/24 10:10 3 02/17/24 10:00 3 02/17/24 09:50 3 02/17/24 09:40 6 02/17/24 09:30 6 02/17/24 07:30 02/17/24 07:15 PG Care Time/CCT Total # of Minutes Spent Total Time Spent with Patient: Total time spent is greater than 50% in coordination of care (as documented) at patient's floor/unit and/or counseling patient: Coding Level of Care Code 15314 IN/OBS CONSULT LVL 4,60M Diagnoses Status post right knee replacement Z96.651 PAF (paroxysmal atrial fibrillation) I48.0 Non-occlusive coronary artery disease I25.10 Benign essential hypertension I10 Atherogenic dyslipidemia E78.5 Acid reflux K21.9 Hyperglycemia R73.9
[2024-02-17] MEDS: LACTATED RINGER'S 500 ML IV ONE (15:08)
[2024-02-17 15:09] LABS: Hematocrit (blood only) 35.7 % (42.0-52.0); Hemoglobin 11.7 g/dl (14.0-18.0); Mean Corpuscular Hemoglobin 30.9 pg (25.0-34.0); Mean Corpuscular Hgb Conc 32.8 g/dL (32.0-36.0); Mean Corpuscular Volume 94.2 fL (80.0-100.0); Platelet Count 150 K/uL (130-400); RDW Coefficient of Variation 13.9 % (11.5-14.5); Red Blood Count 3.79 M/uL (4.70-6.10); White Blood Count 5.52 K/ul (4.8-10.8)
[2024-02-17 15:25] LABS: BUN Creatinine Ratio 17.1 (10-20); Calcium 9.1 mg/dl (8.6-10.3); Creatinine Clr Calc Pharmacy 48.4 ml/min; Est GFR (African American) 54.2 ml/min; Est GFR (Non-African American) 46.8 ml/min; Magnesium 1.7 mg/dl (1.7-2.4); Potassium 4.3 mmol/L (3.5-5.1)
[2024-02-17 15:36] LABS: Basophils # (auto) 0.01 K/uL (0.00-0.20); Basophils % (auto) 0.2 %; Eosinophils # (auto) 0.01 K/uL (0.00-0.50); Eosinophils % (auto) 0.2 %; Immature Granulocytes # (auto) 0.01 K/uL (0.01-0.20); Immature Granulocytes % (auto) 0.2 %; Lymphocytes # (auto) 0.31 K/uL (1.20-3.40); Lymphocytes % (auto) 5.6 %; Monocytes # (auto) 0.05 K/uL (0.11-0.59); Monocytes % (auto) 0.9 %; Neutrophils # (auto) 5.13 K/uL (1.40-6.50); Neutrophils % (auto) 92.9 %; RBC Morphology Unremarkable
[2024-02-17] MEDS ORDERED: METOPROLOL TARTRATE 1 MG/ML VIAL IV PRN (15:43)
[2024-02-17] MEDS ORDERED: PHARMACY GLYCEMIC MGMT CONSULT PRN (15:44)
[2024-02-17] MEDS ORDERED: GLUCOSE 10 TAB/TUBE PO PRN (15:44)
[2024-02-17] MEDS ORDERED: GLUCOSE 40% GEL 15 GM TUBE PO PRN (15:44)
[2024-02-17] MEDS ORDERED: GLUCAGON FOR INJ 1 MG VIAL SQ PRN (15:44)
[2024-02-17] MEDS ORDERED: CARBOHYDRATES FOR HYPOGLYCEMIA PO PRN (15:44)
[2024-02-17] MEDS ORDERED: DEXTROSE 50% 50 ML SYRINGE IV PRN (15:44)
[2024-02-17] MEDS: LACTATED RINGER'S 1,000 ML IV SCH (15:45)
[2024-02-17] MEDS: MAGNESIUM SULFATE / D5W 1 GM/100 ML BAG IV ONE (16:34)
[2024-02-17] MEDS: MAGNESIUM OXIDE 400 MG TAB PO ONE (16:40)
[2024-02-17] MEDS: METOPROLOL TARTRATE 25 MG TAB PO STA (16:41)
--- NOTE | 2024-02-17 17:36 | Electrocardiogram Report ---
Test Reason : Blood Pressure : / mmHG Vent. Rate : 100 BPM Atrial Rate : 067 BPM P-R Int : 000 ms QRS Dur : 102 ms QT Int : 364 ms P-R-T Axes : 000 -33 032 degrees QTc Int : 469 ms Poor data quality, interpretation may be adversely affected Atrial fibrillation Left axis deviation Incomplete right bundle branch block Nonspecific ST abnormality Abnormal ECG When compared with ECG of 07-JAN-2024 11:52, No significant change was found Confirmed by José Leos ([id number]) on 02/17/2024 5:36:37 PM Referred By: Norman Doyle Confirmed By:Jef Leos
[2024-02-17] MEDS: INSULIN ASPART PER UNIT CHARGE SC SCH (17:59)
[2024-02-17] MEDS: DOCUSATE SODIUM 100 MG CAP PO SCH (20:46)
[2024-02-17] MEDS: SIMVASTATIN 20 MG TAB PO SCH (20:46)
[2024-02-17] MEDS: busPIRone 5 MG TAB PO SCH (20:46)
[2024-02-17] MEDS: METOPROLOL TARTRATE 25 MG TAB PO SCH (20:47)
[2024-02-17] MEDS: SENNA 8.6 MG TAB PO SCH (20:47)
[2024-02-17] MEDS: LANTUS PER UNIT CHARGE SC SCH (21:01)
[2024-02-17] MEDS: traMADol HCL 50 MG TABLET PO PRN (21:57)
[2024-02-18 06:23] LABS: Basophils # (auto) 0.01 K/uL (0.00-0.20); Basophils % (auto) 0.1 %; Hematocrit (blood only) 29.4 % (42.0-52.0); Hemoglobin 9.9 g/dl (14.0-18.0); Immature Granulocytes # (auto) 0.05 K/uL (0.01-0.20); Immature Granulocytes % (auto) 0.6 %; Lymphocytes % (auto) 6.8 %; Mean Corpuscular Hemoglobin 31.6 pg (25.0-34.0); Mean Corpuscular Hgb Conc 33.7 g/dL (32.0-36.0); Mean Corpuscular Volume 93.9 fL (80.0-100.0); Mean Platelet Volume 10.4 fL (9.4-12.4); Monocytes # (auto) 0.72 K/uL (0.11-0.59); Monocytes % (auto) 8.2 %; Neutrophils # (auto) 7.45 K/uL (1.40-6.50); Neutrophils % (auto) 84.3 %; Platelet Count 121 K/uL (130-400); RDW Standard Deviation 48.2 fL (36.4-46.3); Red Blood Count 3.13 M/uL (4.70-6.10); White Blood Count 8.83 K/ul (4.8-10.8)
[2024-02-18 06:35] LABS: BUN Creatinine Ratio 22.5 (10-20); Calcium 8.7 mg/dl (8.6-10.3); Creatinine Clr Calc Pharmacy 52.5 ml/min; Est GFR (African American) 59.9 ml/min; Est GFR (Non-African American) 51.7 ml/min; Potassium 4.4 mmol/L (3.5-5.1)
[2024-02-18 06:58] LABS: Estimated Average Glucose 123 mg/dl; Hemoglobin A1C 5.9 % (4.5-5.6)
--- NOTE | 2024-02-18 08:13 | Hospitalist Progress Note ---
Date of Service February 18, 2024 Assessment & Plan (1) Status post right knee replacement: Plan: 02/17 s/p Right Total Knee Arthroplasty, Cemented(Right) - Norman Doyle, DO on 02/16. EBL 30cc 500cc LR bolus and 1L maintenance IVF ordered post-op as consulted for tachycardia/afib. Telemetry monitoring. EKG w/ afib, rate 100bpm. Metoprolol 12.5mg PO x 1 now, also provided 1gm IV magnesium and PO dose-oOptimize Mag/K recommended Appears HRs improved Did have negative dobutamine stress 01/22/24 WBC wnl, afebrile Hgb 11.7--> 9.9, acute blood loss anemia from surgery but also dilutional aspect from IVF suspected Cr up to 1.4, improved to 1.29 w/ IVF. Placed AM losartan on hold and suspect can be resumed tomorrow Pain control, bowel regimen per primary service DVT proph: eliquis ordered to resume this morning 02/17 AM PT/OT consulted -->patient reporting wanting rehab/[facility]. Kamilla from notified and to discuss with patient and Shraddha from [facility] to see if able to take today Stable for dc to [facility] if able today. Hospitalist service will sign off at this time. Please call with any questions/concerns. (2) PAF (paroxysmal atrial fibrillation): Plan: Sinus at preoperative clearance, has a history of paroxysmal A-fib on Eliquis and beta-sachin Hx Paroxysmal A-fib EKG on bedside assessment Afib. No new morphology change, no acute territorial ischemia. Chest pain free at bedside Given metoprolol 12.5mg PO x 1, continued 25mg PO BID. GIven 1gm IV mag and additional PO dose with 500cc IVF. *Losartan placed on hold, Cr improved and PO intake acceptable and can resume in AM tomorrow Telemetry monitoring with rate controlled afib, occasional PVC Mag stable on repeat labs, K 4.4 No CP/SOB/palpitations and stable telemetry (3) Non-occlusive coronary artery disease: Plan: Preoperative cardiac risk assessment History of nonobstructive CAD. Had no preoperative anginal symptoms. Had a low risk dobutamine stress echo. Patient was recommended to continue beta-sachin, cautious use of IV fluids due to LVH and moderate mitral regurg, and was recommended to restart Eliquis 5 mg twice daily soon as postoperative bleeding risk was adequately low per surgical team--resumed for this morning 02/17 Euvolemic/slightly dry, PO intake encouraged. Holding off additional IVF. Losartan to resume in AM 6/ am (4) Benign essential hypertension: Plan: Metoprolol as above, continues 25mg PO BID Losartan placed on hold given Cr 1.4 post-op labs, improved w/ IVF to 1.29 and placed on hold for this morning and can resume in AM. BP stable 131/75 and no lightheaded/dizziness reported (5) Atherogenic dyslipidemia: Plan: Continue Zocor (6) Acid reflux: Plan: Received perioperative famotidine GI prophylaxis No abdominal pain, no signs of acute flare/ulcer at time of consultation (7) Hyperglycemia: Plan: BSG 193 post-op, no hx DM. A1c 5.9, suspect 2nd to steroids w/ surgery BSG AC/HS added, sliding scale BSGs acceptable Outpt f/u Plan DVT prophylaxis: SCDs, resumed Eliquis 02/17 AM Dispo: patient wanting [facility] notified Hospitalist service will sign off at this time. Please call with any questions/concerns. Admission and Anticipated Discharge Date Admission Date: February 17, 2024 Supervising Physician Co-Signing Physician Notes The patient was not seen by me. The chart was reviewed. Case discussed with MARYANN Sadler. Agree with assessment and plan Subjective Evaluated this morning, sitting up in the chair. Feeling well. Some commotion as to family not being able to find him due to move post-op due to tachycardia/afib. Discussed consult for tachycardia/afib, however he notes he is anxious harvinder at baseline and stress from surgery suspected contributing as well. Presently, patient denies CP/SOB/palpitations. No abdominal pain/nausea, lightheaded/dizziness. HRs improved/controlled afib, occasional PVC. He did have some thigh discomfort last evening and improved today, per ortho was from tourniquet. Patient anticipating rehab at [facility], hoping to go today. Had been doing some home health and plans to resume after rehab. Called [facility] and inquired about rehab, they will be down to talk with patient and update Shraddha from [facility] to see if able to accept today. Anticipating 5th grandchild this summer, his granddaughter pharmacist Deidra Kader, Kellen Ariassally also previously worked here as RN. Questions/concerns addressed at this time. Physical Exam Physical Exam: General: 83yo male sitting up in chair, NAD Head atraumatic, normocephalic, mmm, trachea midline, slight hard of hearing Resp: even/unlabored, no w/c/r, on room air CV: irregularly irregular, rates 70-90s on monitor, faint systolic murmur, trace edema, calves nontender/pulses palpable GI: +BS, soft/NT : no brasher MSK/Neuro: dressing/alysha wrap to RLE/knee, toes mobile, sensation intact, cap refill wnl Psych: AOx3, cooperative and pleasant with exam Results & Data Results & Data Vital Signs (Past 12 Hours) Vital Signs Temp Pulse Pulse Resp BP Pulse Ox O2 Del Method 02/18/24 07:36 36.8 C 74 18 131/75 98 Room Air 02/18/24 07:28 78 02/18/24 01:55 36.3 C L 86 16 133/90 98 Room Air 02/17/24 23:39 79 02/17/24 23:32 36.3 C L 84 16 134/84 97 Room Air 02/17/24 21:22 Room Air 02/17/24 20:16 36.7 C 92 H 18 145/81 H 98 Room Air Laboratory Results 02/18/24 02/18/24 02/17/24 Range/Units 08:01 05:38 20:39 WBC 8.83 (4.8-10.8) K/ul RBC 3.13 L (4.70-6.10) M/uL Hgb 9.9 L (14.0-18.0) g/dl Hct 29.4 L (42.0-52.0) % MCV 93.9 (80.0-100.0) fL MCH 31.6 (25.0-34.0) pg MCHC 33.7 (32.0-36.0) g/dL RDW Std Deviation 48.2 H (36.4-46.3) fL RDW Coeff of Kindra 14.0 (11.5-14.5) % Plt Count 121 L (130-400) K/uL MPV 10.4 (9.4-12.4) fL Immature Gran % (Auto) 0.6 % Neut % (Auto) 84.3 % Lymph % (Auto) 6.8 % [place] % (Auto) 8.2 % Eos % (Auto) 0.0 % Baso % (Auto) 0.1 % Neut # (Auto) 7.45 H (1.40-6.50) K/uL Lymph # (Auto) 0.60 L (1.20-3.40) K/uL [place] # (Auto) 0.72 H (0.11-0.59) K/uL Eos # (Auto) 0.00 (0.00-0.50) K/uL Baso # (Auto) 0.01 (0.00-0.20) K/uL Immature Gran # (Auto) 0.05 (0.01-0.20) K/uL RBC Morphology Sodium 139 (136-145) mmol/L Potassium 4.4 (3.5-5.1) mmol/L Chloride 109 H (98-107) mmol/L Carbon Dioxide 24 (21-32) mmol/L Anion Gap 6 (3-11) BUN 29 H (6-23) mg/dl Creatinine 1.29 (0.6-1.4) mg/dl Est Cr Clr Drug Dosing 52.5 ml/min Est GFR ( Amer) 59.9 ml/min Est GFR (Non-Af Amer) 51.7 ml/min BUN/Creatinine Ratio 22.5 H (10-20) Glucose 138 H (70-99(Fasting)) mg/dl POC Glucose Pending 108 H (70-99) mg/dl Estimat Average Glucose 123 mg/dl Hemoglobin A1c 5.9 H (4.5-5.6) % Calcium 8.7 (8.6-10.3) mg/dl Magnesium (1.7-2.4) mg/dl 02/17/24 02/17/24 Range/Units 17:06 14:58 WBC 5.52 (4.8-10.8) K/ul RBC 3.79 L (4.70-6.10) M/uL Hgb 11.7 L (14.0-18.0) g/dl Hct 35.7 L (42.0-52.0) % MCV 94.2 (80.0-100.0) fL MCH 30.9 (25.0-34.0) pg MCHC 32.8 (32.0-36.0) g/dL RDW Std Deviation 48.0 H (36.4-46.3) fL RDW Coeff of Kindra 13.9 (11.5-14.5) % Plt Count 150 (130-400) K/uL MPV 10.0 (9.4-12.4) fL Immature Gran % (Auto) 0.2 % Neut % (Auto) 92.9 % Lymph % (Auto) 5.6 % [place] % (Auto) 0.9 % Eos % (Auto) 0.2 % Baso % (Auto) 0.2 % Neut # (Auto) 5.13 (1.40-6.50) K/uL Lymph # (Auto) 0.31 L (1.20-3.40) K/uL [place] # (Auto) 0.05 L (0.11-0.59) K/uL Eos # (Auto) 0.01 (0.00-0.50) K/uL Baso # (Auto) 0.01 (0.00-0.20) K/uL Immature Gran # (Auto) 0.01 (0.01-0.20) K/uL RBC Morphology Unremarkable Sodium 136 (136-145) mmol/L Potassium 4.3 (3.5-5.1) mmol/L Chloride 107 (98-107) mmol/L Carbon Dioxide 24 (21-32) mmol/L Anion Gap 5 (3-11) BUN 24 H (6-23) mg/dl Creatinine 1.40 (0.6-1.4) mg/dl Est Cr Clr Drug Dosing 48.4 ml/min Est GFR ( Amer) 54.2 ml/min Est GFR (Non-Af Amer) 46.8 ml/min BUN/Creatinine Ratio 17.1 (10-20) Glucose 193 H (70-99(Fasting)) mg/dl POC Glucose 168 H (70-99) mg/dl Estimat Average Glucose mg/dl Hemoglobin A1c (4.5-5.6) % Calcium 9.1 (8.6-10.3) mg/dl Magnesium 1.7 (1.7-2.4) mg/dl PG Care Time/CCT Total # of Minutes Spent Total Time Spent with Patient: Total time spent is greater than 50% in coordination of care (as documented) at patient's floor/unit and/or counseling patient: Coding Level of Care Code 95630 SUB INP/OBS CARE MIN Diagnoses Status post right knee replacement Z96.651 PAF (paroxysmal atrial fibrillation) I48.0 Non-occlusive coronary artery disease I25.10 Benign essential hypertension I10 Atherogenic dyslipidemia E78.5 Acid reflux K21.9 Hyperglycemia R73.9
--- NOTE | 2024-02-18 08:24 | Pharmacy Report ---
Pharmacy Glycemic Short Note 2 - Date of Service February 18, 2024 - Glycemic Short BSG Results (Last 24 hours): 02/17/24 02/17/24 02/17/24 14:58 17:06 20:39 Glucose 193 H POC Glucose 168 H 108 H 02/18/24 02/18/24 05:38 08:01 Glucose 138 H POC Glucose 141 H OUTPATIENT ANTIDIABETIC REGIMEN: * none * HbA1c 5.9% (02/18/24) ASSESSMENT: * Tavo is a an 83 YOM admitted status post right total knee arthroplasty with postoperative hyperglycemia and tachycardia. No known history of diabetes. Hemoglobin A1C this AM suggesting some glycemic dysfunction and indicative of pre-diabetes. Pharmacy has been consulted for glycemic management while inpatient. * Fasting BSG this AM with goal range, received dexamethasone 10mg IV preop yesterday, likely cause of hyperglycemia yesterday, no basal insulin given yesterday and BSGs trended down with bolus insulin. No additional steroids ordered, no basal insulin required at this time. * Carbohydrate ratio added yesterday to Novolog, will remove as no additional steroids ordered and patient is at high risk of hypogycemia due to age and mild glycemic dysfunction. PLAN FOR INPATIENT GLYCEMIC CONTROL: * Hold outpatient oral diabetes medications * Basal insulin * Hold * Bolus insulin * NovoLog per scale ACHS or Q6hrs while NPO * Goal Range: Low 120 mg/dL - High 150 mg/dL * Correction Factor: 45 mg/dL/unit * HOLD carbohydrate coverage
[2024-02-18 08:46] LABS: Magnesium 2.1 mg/dl (1.7-2.4)
--- NOTE | 2024-02-18 08:51 | Orthopedic Progress Note ---
Date of Service February 18, 2024 Assessment & Plan (1) Osteoarthritis of right knee: (2) Status post right knee replacement: Plan 83-year-old gentleman POD# 1 s/p right total knee replacement, doing well overall. Pain is well-controlled. Medically stable. Postop x-rays well- appearing. He is neurologically intact. Plan: 1. DVT prophylaxis w/ TEDs, SCDs, ASA 81 mg QAM, and back onto home dose of Eliquis 5 mg BID due to A-fib and history of aortic valve replacement. 2. PT/OT as tolerated. WBAT on the R LE. Encourage heel slides, SLR, full knee extension w/ quad sets. 3. Pain control doing well with current pain regimen. 4. Dressing change by nursing after PT/OT, prior to discharge. Do not get dressing/operative site wet for 5 days. 5. Disposition -pending therapy, but patient hoping for D/C to [facility], possibly later today. 6. F/u 2 weeks post-op w/ orthopedics (Dr. Doyle's team), or as previously scheduled, for first post-op visit. Admission and Anticipated Discharge Date Admission Date: February 17, 2024 Subjective Patient is POD# 1 s/p right total knee arthroplasty by Dr. Doyle on 02/17/2024. Patient says his pain is well-controlled this morning; he did note some improving right thigh pain, and understands that this could be a combination of having the tourniquet there, as well as the nerve block wearing off some. However, he says he has no pain to the knee itself. Denies CP, SOB, N/V, RLE paresthesia. He is hoping to be transferred to inpatient rehab at [facility]. Patient is very excited to have a new knee and he is ready to start therapy. Physical Exam Physical Exam: GENERAL: AA&Ox3, NAD. Pleasant, affect is calm. Sitting in bedside chair and appears comfortable. RESPIRATORY: Normal respiratory effort with no signs of distress. CHEST/AXILLA: Chest movement symmetrical. No deformities noted. CARDIOVASCULAR: No edema noted. SKIN: [place], warm and dry. MS/EXTREMITY: Knee dressing and Payam wrap c/d/i. CARMINA hose donned to contralateral LE. + ankle dorsi/plantarflexion. NVI distally. Calf soft/NT. PT/DP intact. Results & Data Vital Signs (Past 12 Hours) Vital Signs Temp Pulse Pulse Resp BP Pulse Ox O2 Del Method 02/18/24 07:36 36.8 C 74 18 131/75 98 Room Air 02/18/24 07:28 78 02/18/24 01:55 36.3 C L 86 16 133/90 98 Room Air 02/17/24 23:39 79 02/17/24 23:32 36.3 C L 84 16 134/84 97 Room Air 02/17/24 21:22 Room Air Laboratory Results Laboratory Results - last 48 hr 02/17/24 02/17/24 02/17/24 14:58 17:06 20:39 WBC 5.52 RBC 3.79 L Hgb 11.7 L Hct 35.7 L MCV 94.2 MCH 30.9 MCHC 32.8 RDW Std Deviation 48.0 H RDW Coeff of Kindra 13.9 Plt Count 150 MPV 10.0 Immature Gran % (Auto) 0.2 Neut % (Auto) 92.9 Lymph % (Auto) 5.6 [place] % (Auto) 0.9 Eos % (Auto) 0.2 Baso % (Auto) 0.2 Neut # (Auto) 5.13 Lymph # (Auto) 0.31 L [place] # (Auto) 0.05 L Eos # (Auto) 0.01 Baso # (Auto) 0.01 Immature Gran # (Auto) 0.01 RBC Morphology Unremarkable Sodium 136 Potassium 4.3 Chloride 107 Carbon Dioxide 24 Anion Gap 5 BUN 24 H Creatinine 1.40 Est Cr Clr Drug Dosing 48.4 Est GFR ( Amer) 54.2 Est GFR (Non-Af Amer) 46.8 BUN/Creatinine Ratio 17.1 Glucose 193 H POC Glucose 168 H 108 H Estimat Average Glucose Hemoglobin A1c Calcium 9.1 Magnesium 1.7 02/18/24 02/18/24 05:38 08:01 WBC 8.83 RBC 3.13 L Hgb 9.9 L Hct 29.4 L MCV 93.9 MCH 31.6 MCHC 33.7 RDW Std Deviation 48.2 H RDW Coeff of Kindra 14.0 Plt Count 121 L MPV 10.4 Immature Gran % (Auto) 0.6 Neut % (Auto) 84.3 Lymph % (Auto) 6.8 [place] % (Auto) 8.2 Eos % (Auto) 0.0 Baso % (Auto) 0.1 Neut # (Auto) 7.45 H Lymph # (Auto) 0.60 L [place] # (Auto) 0.72 H Eos # (Auto) 0.00 Baso # (Auto) 0.01 Immature Gran # (Auto) 0.05 RBC Morphology Sodium 139 Potassium 4.4 Chloride 109 H Carbon Dioxide 24 Anion Gap 6 BUN 29 H Creatinine 1.29 Est Cr Clr Drug Dosing 52.5 Est GFR ( Amer) 59.9 Est GFR (Non-Af Amer) 51.7 BUN/Creatinine Ratio 22.5 H Glucose 138 H POC Glucose 141 H Estimat Average Glucose 123 Hemoglobin A1c 5.9 H Calcium 8.7 Magnesium 2.1 Diagnostic Findings Knee X-Ray 02/17/24 09:32 XR knee RT 1 or 2V routine CLINICAL HISTORY: Postoperative evaluation. COMPARISON: Right knee radiographs December 10, 2023. FINDINGS: Alignment of the total right knee arthroplasty is anatomic. There is no periprosthetic fracture. No unexpected radiopaque foreign bodies are present. There are skin johnny. IMPRESSION: Expected findings following total right knee arthroplasty. ACT 112: Negative or not required by law. Electronically signed by: Edward Vo M.D. 02/17/2024 10:03 AM
[2024-02-18] MEDS ORDERED: LOSARTAN POTASSIUM 25 MG TAB PO SCH (09:00)
[2024-02-18] MEDS: MULTIVITAMIN TAB PO SCH (09:16)
[2024-02-18] MEDS: ASPIRIN 81 MG ECTAB PO SCH (09:16)
[2024-02-18] MEDS: dexAMETHasone 4 MG TAB PO SCH (09:16)
[2024-02-18] MEDS: APIXABAN 5 MG TABLET PO SCH (09:17)
--- NOTE | 2024-02-18 11:01 | Discharge Summary ---
Date of Service February 18, 2024 Admission HPI Per Admitting Provider Chief Complaint: Osteoarthritis of the right knee. Henrik is a pleasant 83-year-old male who has been dealing with chronic increasing right knee pain. X-rays and clinical examination have been diagnostic for advanced osteoarthritis to the right knee. He has failed conservative treatment including injections and anti-inflammatories. He is to the point where he is using a rolling walker. He has elected to proceed with a right total knee arthroplasty. (1) Osteoarthritis of right knee: We will proceed with a right total knee arthroplasty. Postoperatively he will be started on Eliquis for DVT prophylaxis and kept overnight in the hospital for postop medical management. [facility]. Admission Exam Per Admitting Provider On physical examination of right knee, he has decreased range of motion from 10 to 110 degrees. No instability. Pain of the distal femoral condyles.. Constitutional WD/WN, vitals as above Eyes PERRL, conjunctivae normal, anicteric sclerae ENMT external ear and nose normal, oropharynx normal Neck trachea midline, no thyromegaly Respiratory normal respiratory effort Cardiovascular RRR, no murmur, no edema Gastrointestinal (Abdomen) normal bowel sounds, soft, nontender, no hepatosplenomegaly Psychiatric A+Ox3, euthymic affect Diagnostic Findings X-rays of the right knee show severe osteoarthritis with joint space narrowing, osteophyte formation, and [id number] tubulation. Principal Diagnosis Same as "Discharge Diagnosis" noted below under Discharge Instructions. Discharge Exam GENERAL: AA&Ox3, NAD. Pleasant, affect is calm. Sitting in bedside chair and appears comfortable. RESPIRATORY: Normal respiratory effort with no signs of distress. CHEST/AXILLA: Chest movement symmetrical. No deformities noted. CARDIOVASCULAR: No edema noted. SKIN: [place], warm and dry. MS/EXTREMITY: Knee dressing and Payam wrap c/d/i. CARMINA hose donned to contralateral LE. + ankle dorsi/plantarflexion. NVI distally. Calf soft/NT. PT/DP intact. Discharge Data Allergies Allergy/AdvReac Type Severity Reaction Status Date / Time morphine AdvReac Mild GI SYMPTOMS Verified 02/17/24 06:58 Consultations 02/17/24 14:33 Consult Hospitalist Routine Procedures Performed Operation Date: 02/17/24 08:00 Actual Procedures p Right Total Knee Arthroplasty, Cemented(Right) - Norman Doyle DO Ordered Studies 02/17/24 05:00 US - OR guided needle placemen Routine Knee X-Ray 02/17/24 09:32 XR knee RT 1 or 2V routine CLINICAL HISTORY: Postoperative evaluation. COMPARISON: Right knee radiographs December 10, 2023. FINDINGS: Alignment of the total right knee arthroplasty is anatomic. There is no periprosthetic fracture. No unexpected radiopaque foreign bodies are present. There are skin johnny. IMPRESSION: Expected findings following total right knee arthroplasty. ACT 112: Negative or not required by law. Electronically signed by: Edward Vo M.D. 02/17/2024 10:03 AM Hospital Course (1) Osteoarthritis of right knee: (2) Status post right knee replacement: On February 17, 2024 Tavo arrived at [facility] operating room and underwent a right total knee replacement without complications. Patient had a spinal anesthetic for the procedure. Postoperatively, patient was transferred to the general orthopedic floor in stable condition and eventually started back onto his home medications of aspirin 81 mg in the morning and Eliquis 5 mg BID for DVT prophylaxis as appropriate. Patient did develop some tachycardia postoperatively, and the medicine service was consulted and an EKG was obtained. The patient was transferred to the second floor for monitoring. Otherwise, his hospital course was uneventful. On postoperative day #1, patient's vital signs were stable and pain was well-controlled. He had some right anterior thigh pain, felt to be due to a combination of the tourniquet placement and the nerve block wearing off, and he did report this was improving overall. Patient was able to participate well with physical therapy, safely performing the necessary ambulation and range of motion exercises. Patient was then discharged [facility] for further therapy services. Patient will f ollow-up with orthopedics in 2 to 3 weeks for postoperative care. Plan 83-year-old gentleman POD# 1 s/p right total knee replacement, doing well overall. Pain is well-controlled. Medically stable. Postop x-rays well- appearing. He is neurologically intact. Plan: 1. DVT prophylaxis w/ TEDs, SCDs, ASA 81 mg QAM, and back onto home dose of Eliquis 5 mg BID due to A-fib and history of aortic valve replacement. 2. PT/OT as tolerated. WBAT on the R LE. Encourage heel slides, SLR, full knee extension w/ quad sets. 3. Pain control doing well with current pain regimen. 4. Dressing change by nursing after PT/OT, prior to discharge. Do not get dressing/operative site wet for 5 days. 5. Disposition -pending therapy, but patient hoping for D/C to [facility], possibly later today. 6. F/u 2 weeks post-op w/ orthopedics (Dr. Doyle's team), or as previously scheduled, for first post-op visit. Total Time Total Time Spent Total Time Spent (In Minutes): Total Time Spent with Patient: Total time spent is greater than 50% in coordination of care (as documented) at patient's floor/unit and/or counseling patient: Discharge Plan Discharge Items Patient Disposition: Transfer Inpatient Rehab Fac Reason For Visit: Right Knee Degnerative Joint Disease Discharge Diagnosis: Right knee replacement Activity: Per Instructions section Non-emergency contact: Surgeon Call non-emergency contact if: your wound has increased redness and your wound has increased drainage Follow-up/Referrals: Haylee Hartley DO [Primary Care Provider] - Norman Hale PA-C [Physician [employer]] - Diet: Regular Addtl Attending Provider Instructions: Activity and Therapy Recommendations: * If you are using [facility] then therapy will be provided at your home until they feel you have accomplished all of your goals. * If you are using [facility] then Physical Therapy will be provided until they feel you are ready to start Outpatient Physical Therapy. * If you are not using home therapy then Outpatient Physical Therapy should start about 3-5 days from your day of surgery. Therapy will last about 6-10 weeks * It is important not to put a pillow under your knee when you are relaxing or sleeping. It is just as important to make sure you are getting your knee perfectly straight as it is to regain your knee bend. * You were shown a series of exercises in the hospital. Do these exercises three times each day including the exercises you were shown in physical therapy. * Get up and walk several times each day. For the first four weeks, try not to stand or walk for more than one hour at a time. If you do stand or walk for more than one hour, you will not hurt anything, but your leg will likely swell. * As you feel comfortable, you may change from the walker or crutches to a cane and then to independent walking. Medications: * Narcotic You will likely be sent home from the hospital with a prescription for the narcotic pain medication that worked best throughout your stay. * Cefadroxil -take the antibiotic twice a day for 10 days to help prevent infection. * Aspirin Most patients will be required to take Aspirin 81mg twice a day for 6 weeks after surgery. This is obtained [id number] and a prescription is not necessary. * Other medications may be prescribed for specific circumstances. If you have any questions, please call the office at . * Resume previous home medications unless otherwise instructed TEDs/Elastic Stockings: The white elastic stockings help limit swelling and prevent blood clots from forming in your legs.~ The more you wear them, the more they work. Wear them for six weeks. Dressing Care: The dressing can be changed after physical therapy on postop day #1. Daily dry dressing changes for a few days, especially if the incision is still draining some. If the incision is not draining then you may leave the johnny open to air. If there is a little bit of drainage or if the johnny are getting stuck on your clothing then cover the incision with a dry dressing. The johnny will be removed at your 2 week follow-up appointment. Showering: You may shower 5 days from the day of surgery as long as the incision is no longer draining. You may shower with the johnny exposed. Let soapy water run over the johnny and pat them dry. Do not scrub or soak the incision. Things To Watch For: * Drainage from the incision site that occurs more than one week after your surgery. * Increased redness at the incision site. * Fever above 102 degrees Fahrenheit. * Unusual chest pain or shortness of breath. * Call [facility] at with any of the above problems Follow-Up Visit: Follow-up with Dr. Doyle's PA (Norman Hale) 2-3 weeks after your day of surgery. He will remove your johnny and answer any questions. If you have any additional questions or concerns, Dr Doyle is usually in the office at the same time and will be available An appointment was probably scheduled when you signed-up for surgery in the office. If you have any questions call Office Instructions: More detailed instructions as well as Frequently Asked Questions were provided in a folder by our office when you signed-up for surgery. Please review these instructions when you get home. If you have any further questions or concerns, please feel free to call the office at [phone] Pending Studies at Discharge: No Stand-Alone Forms: My [employer], Smoking Cessation Skilled Items Patient informed of condition?: Yes DNR: No Discharge Level of Care: Acute rehab Communicable Disease: No Discharge Prognosis: Improving Lines: None Urinary Catheter: No Medications and DC Order Prescriptions: New tramadol 50 mg tablet 50 mg PO Q6H PRN (Reason: pain) Qty: 30 0RF cefadroxil 500 mg capsule 500 mg PO BID 10 Days Qty: 20 0RF Continued Eliquis 5 mg tablet 5 mg PO BID 90 Days Qty: 180 3RF metoprolol tartrate 25 mg tablet 25 mg PO BID Qty: 180 3RF simvastatin [Zocor] 20 mg tablet 20 mg PO HS Qty: 90 3RF omeprazole 20 mg capsule,delayed release(DR/EC) 20 mg PO QAM Qty: 90 3RF tramadol 50 mg tablet 50 mg PO Q8H PRN (Reason: pain) Qty: 30 0RF acetaminophen [Tylenol] 325 mg Tablet 1 - 2 tabs PO Q6H PRN (Reason: Pain) cyanocobalamin (vitamin B-12) [Vitamin B-12] 1,000 mcg Tablet 1,000 mcg PO HS calcium carbonate [Calcium 600] 600 mg calcium (1,500 mg) Tablet 600 mg PO QAM docusate sodium [Colace] 100 mg Capsule 100 mg PO QAM Glucosamine Chondroitin 550-30-1 mg Capsule 1 cap PO BID aspirin [Aspirin Low-Strength] 81 mg Tablet,Delayed Release (Dr/Ec) 81 mg PO QAM buspirone 10 mg tablet 5 - 10 mg PO Q8H Patient Comments: takes 5mg BID Rx Instructions: 1/2 to 1 pill orally Q 8 HR; patient takes 1/2 BID losartan 25 mg tablet 25 mg PO QAM Admission Data Admit Date/Time: 02/17/24 09:32 Attending Provider: Norman Doyle Admit Provider: Norman Doyle Primary Care Provider: Haylee Hartley Other Providers: Rufus Toribio; [facility]
== END 2024-02-18 17:53 ==
LOC: 3E 06:25 → ASU 06:25 → 2N 16:20

== ENCOUNTER 2024-10-06 13:41 | Inpatient (IN) ==
--- NOTE | 2024-10-06 13:57 | Emergency Department Note ---
Impression & Plan Fracture, intertrochanteric, right femur, Fall from standing ED Provider Note HISTORY OF PRESENT ILLNESS: Patient is a 84-year-old male presenting with right hip pain after a fall. Patient reports that he was seated eating food when he went to get up and suddenly felt very woozy and lightheaded and fell to the side, landing on his right hip and falling backwards and striking his head. Immediate pain and deformity to the right hip. He was unable to get up off the ground by himself. He is currently complaining of right hip pain. Denies any chest pain or shortness of breath. He is on Eliquis. He does have a history of an aortic valve replacement and was previously on Coumadin, per the patient. He denies any recent fevers. Denies any nausea or vomiting. Denies any headache or changes vision. Denies any numbness or tingling or weakness in extremities. Denies any neck pain. ROS: as above PHYSICAL EXAM: Constitutional: Patient appears in no acute distress. HENT: Head: Normocephalic and atraumatic. Eyes: EOMI, PERRL Mouth/Throat: Mucous membranes moist. Neck: Trachea midline. Neck supple. No midline cervical spine tenderness to palpation. Cardiovascular: Irregular rhythm. No rubs or gallops. Intact distal pulses. Pulmonary/Chest: No respiratory distress. Breath sounds clear and equal bilaterally. No wheezes or rales. No chest wall tenderness to palpation. Abdominal: Abdomen soft, no tenderness, rebound or guarding. Musculoskeletal: - RLE: Patient's right leg is slightly shortened and externally rotated. He is able to wiggle toes on right foot. Able to dorsiflex and plantarflex at the ankle. Able to initiate flexion at the knee. Intact DP and PT pulses. Sensation intact to light touch about the nerve distributions of the leg. Patient has tenderness to palpation to the proximal lateral portion of the femur. No open wounds. - RUE: No obvious deformity. Patient is able to flex and extend at the wrist, flex and extend at the elbow and rotate the shoulder. However, he is noted to have an area of ecchymosis to the proximal humerus region. Patient is able to give thumbs up, okay sign and cross fingers. Intact radial pulse. Patient has no tenderness to palpation of the shoulder, but does complain of tenderness overlying the ecchymosis. Skin: Warm and dry. No rash, erythema, pallor or cyanosis Psychiatric: Appropriate mood and affect for situation. Neurological: Alert and keenly responsive. CN II-XII grossly intact MDM: - Vitals signs stable - History obtained via patient. History as above. - Chronic conditions affecting care: HTN; Afib; HLD - Differential diagnoses include, but are not limited to: Intracranial hemorrhage; CVA; dysrhythmia; electrolyte abnormality; femur fracture; pelvic fracture - Order placed for continuous cardiac monitoring. At this time, monitor showed rate of 84 bpm with irregular rhythm, per my interpretation. - External medical records reviewed. Primary care office visit note dated 05/20/2024 was reviewed. Patient was seen for a follow-up in clinic for his multiple medical problems. - EKG interpreted by myself showed atrial fibrillation. Rate 80 bpm. QT 396. No acute ischemic changes. - Laboratory workup interpreted by myself showed normal WBC; normal PT/INR; stable electrolytes; normal CK; normal troponin; normal TSH - CXR negative for pneumonia, per my interpretation - Xray pelvis with R hip view showed intertrochanteric right proximal femur fracture, per my interpretation. - Xray right shoulder negative for acute osseous abnormality - CT head wo contrast negative for acute intracranial injury - CT cervical spine wo contrast negative for acute injury - Patient given 1g IV tylenol in ER, as patient was stating that his pain was well-controlled after the fentanyl he received prehospital. - Discussed case with orthopedist precision printing worker, Dr. Mac, at 15:21. - Discussion was had with case assembler about patient's case and need for admission - Hospitalist consulted for admission - [facility] and [facility]. ASSESSMENT AND PLAN: Diagnosis: Right intertrochanteric femur fracture; fall from standing Plan: admit Past Med/Surg History Problem List (Updated 10/06/24 @ 15:28 by Rima Conte MD) Fall from standing (Acute) Fracture, intertrochanteric, right femur (Acute) Left leg swelling B12 deficiency Acid reflux Controlled and stable Non-occlusive coronary artery disease Mild/nonobstructive per cardio records Per PCP note 09/20/21= Underwent catheterization 2013 revealing less than 30% proximal LAD, 30-40% mid LAD, 40-50% D2 stenosis. Status post right knee replacement (~02/2024) History of aortic valve replacement with bioprosthetic valve Benign essential hypertension PAF (paroxysmal atrial fibrillation) Atherogenic dyslipidemia Rotator cuff arthropathy of left shoulder Vitamin D deficiency Family history of colon cancer Arthritis, multiple joint involvement (Chronic) Medical History Atrial fibrillation Hypertension Chronic anemia Aortic stenosis Moderate mitral regurgitation Hyperlipidemia Chronic lower back pain Hearing loss in left ear Surgical History Status post reverse total replacement of right shoulder (~11/2021) S/P aortic valve replacement (~2013) History of ventral hernia repair History of tooth extraction History of blepharoplasty History of bilateral cataract extraction History of cardiac cath (~02/19/14) History of sinus surgery History of arthroscopic knee surgery History of colonoscopy Family History Father Heart disease Mother Heart disease Sister Colorectal cancer Brother Renal carcinoma Hypertension Son Melanoma Other No family history of adverse response to anesthesia Denies family history of Ovarian cancer Prostate cancer Myocardial infarction Breast cancer Lung cancer Social History Smoking Status: Former smoker Tobacco Type: Cigars Second Hand Exposure: Yes (hx, smoked); Do You Dip or Chew Tobacco: No; Hx Alcohol Use: Yes (quit 30+ years ago) Hx Substance Use: No Preferred Language: Malay Communication Ability: Effective Visual Impairment: Limited Hearing Ability: Normal Shot Lighter Required: No Beliefs That Will Affect Care: Shinto marital status: / Current Living Situation: Alone current occupational status: retired How many Children do You have: 5 Feels Safe at Home: Yes Childhood Exposure to Second-Hand Smoke: Yes (dad did when he was real young) caffeine: Yes (coffee ) Dental Care, Regularly: Yes Physical Activity Frequency: 5-6 Times per Week Physical Activity Frequency Comment: doesn't ride bike anymore Seatbelt Use: never Sunscreen Use: No Assistive Devices: Cane Allergies Allergies Allergy/AdvReac Type Severity Reaction Status Date / Time morphine AdvReac Mild GI SYMPTOMS Verified 09/11/24 09:52 Home Meds Home Medications Medication Instructions Recorded Confirmed acetaminophen 325 mg tablet 1 - 2 tabs PO Q6H PRN Pain 08/02/18 09/11/24 (Tylenol) calcium carbonate (Calcium 600) 600 mg PO QAM 08/02/18 09/11/24 cyanocobalamin (vitamin B-12) 1,000 mcg PO HS 08/02/18 09/11/24 1,000 mcg tablet (Vitamin B-12) docusate sodium 100 mg capsule 100 mg PO QAM 08/02/18 09/11/24 (Colace) glucosamine sulf dipot 1 cap PO BID 10/05/21 09/11/24 chlr,msm,chond 550 mg-C 30 mg-debbie 1 mg capsule (Glucosamine Chondroitin) aspirin 81 mg tablet,delayed 81 mg PO QAM 04/23/23 09/11/24 release Previous Rx's Medication Instructions Recorded simvastatin 20 mg tablet (Zocor) 20 mg PO HS #90 tabs 11/21/23 omeprazole 20 mg capsule,delayed 20 mg PO QAM #90 caps 12/17/23 release tramadol 50 mg tablet 50 mg PO Q6H PRN pain #30 tabs 05/14/24 apixaban 5 mg tablet (Eliquis) 5 mg PO BID 90 days #180 tabs 07/10/24 tramadol 50 mg tablet 50 mg PO Q6H PRN pain #30 tabs 07/17/24 losartan 25 mg tablet 25 mg PO QAM #90 tabs 08/11/24 buspirone 10 mg tablet 5 - 10 mg (0.5 - 1 x 10 mg) PO Q8H 08/19/24 anxiety #90 tabs metoprolol tartrate 25 mg tablet 25 mg PO BID #180 tabs 09/04/24 Results & Data (ED) Vital Signs Vital Signs - 24 hr 10/06/24 14:04 10/06/24 14:10 10/06/24 14:16 Temperature 36.5 C 36.5 C Temperature Source Oral Pulse Rate 79 79 84 Pulse Rhythm Regular Pulse Strength Normal Respiratory Rate 18 18 Respiratory Effort / Characteristics Non-Labored Respiratory Depth Normal Respiratory Pattern Regular Blood Pressure 118/78 118/78 Blood Pressure Mean 91 Blood Pressure Position Lying Pulse Oximetry 99 99 Oxygen Delivery Method Room Air Room Air Oxygen Flow Rate 99 Sepsis Recent Fever Within 48 Hours No Sepsis New/Unexplained Change in Mental Status N/A Sepsis Action Taken by Nursing No Action Required Laboratory Data 10/06/24 14:20 10/06/24 14:20 Lab Results 10/06/24 Range/Units 14:20 WBC 5.01 (4.8-10.8) K/ul RBC 3.60 L (4.70-6.10) M/uL Hgb 11.2 L (14.0-18.0) g/dl Hct 33.5 L (42.0-52.0) % MCV 93.1 (80.0-100.0) fL MCH 31.1 (25.0-34.0) pg MCHC 33.4 (32.0-36.0) g/dL RDW Std Deviation 47.7 H (36.4-46.3) fL RDW Coeff of Kindra 13.9 (11.5-14.5) % Plt Count 133 (130-400) K/uL MPV 10.4 (9.4-12.4) fL Immature Gran % (Auto) 0.8 % Neut % (Auto) 77.6 % Lymph % (Auto) 12.0 % [place] % (Auto) 8.0 % Eos % (Auto) 1.0 % Baso % (Auto) 0.6 % Neut # (Auto) 3.89 (1.40-6.50) K/uL Lymph # (Auto) 0.60 L (1.20-3.40) K/uL [place] # (Auto) 0.40 (0.11-0.59) K/uL Eos # (Auto) 0.05 (0.00-0.50) K/uL Baso # (Auto) 0.03 (0.00-0.20) K/uL Immature Gran # (Auto) 0.04 (0.01-0.20) K/uL PT 11.8 (9.0-12.0) Seconds INR 1.1 (0.9-1.1) Sodium 138 (136-145) mmol/L Potassium 4.0 (3.5-5.1) mmol/L Chloride 105 (98-107) mmol/L Carbon Dioxide 24 (21-32) mmol/L Anion Gap 9 (3-11) BUN 19 (6-23) mg/dl Creatinine 1.06 (0.6-1.4) mg/dl Est Cr Clr Drug Dosing 63.0 ml/min eGFR 70.07 BUN/Creatinine Ratio 17.9 (10-20) Glucose 137 H (70-99(Fasting)) mg/dl Calcium 8.8 (8.6-10.3) mg/dl Magnesium 1.6 L (1.7-2.4) mg/dl Total Bilirubin 0.8 (0.2-1.0) mg/dl AST 26 (13-39) U/L ALT 15 (7-52) U/L Alkaline Phosphatase 87 (34-104) U/L Total Creatine Kinase 100 (30-223) U/L Troponin I High Sens 8.0 (0-20) pg/ml Total Protein 6.3 (6.0-8.3) gm/dl Albumin 3.8 (3.4-5.0) gm/dl Globulin 2.5 (2.5-4.0) gm/dl Albumin/Globulin Ratio 1.5 (0.9-2) Lipase 9 L (11-82) U/L TSH 2.861 (0.300-4.500) uIu/ml Administered Medications Discontinued Medications Acetaminophen (Ofirmev) 1,000 mg in 100 mls @ 400 mls/hr IV NOW STA Stop: 10/06/24 14:06 Last Infusion: 10/06/24 15:21 Dose: Infused Documented By: Admin: 10/06/24 14:42 Dose: 400 mls/hr Documented By: MING Imaging Data Radiologist's Impression: Hip/Pelvis X-Ray 10/06/24 13:52 XR hip RT 2V w pelvis CLINICAL HISTORY: R hip pain s/p fall from standing COMPARISON: 04/23/2023 FINDINGS: There is an acute mildly displaced mildly comminuted intertrochanteric fracture proximal right femur. No other fracture or dislocation seen. IMPRESSION: Acute fracture proximal right femur. ACT 112: Negative or not required by law. Electronically signed by: Osvaldo Roy M.D. 10/06/2024 2:[address] 10/06/24 13:53 CT cervical spine wo con CT DOSE: 1161.03 mGy.cm CLINICAL HISTORY: fall from standing. COMPARISON: 05/28/2013 TECHNIQUE: Multiple axial CT images of the cervical spine were obtained without contrast. A dose lowering technique was utilized adhering to the principles of ALARA. FINDINGS: There is severe diffuse degenerative disc disease. There is stable grade 1 anterolisthesis of C7 on T1. No fracture seen. IMPRESSION: No cervical spine fracture seen. ACT 112: Negative or not required by law. The above report was generated using voice recognition software. It may contain grammatical, syntax or spelling errors. Electronically signed by: Osvaldo Roy M.D. 10/06/2024 2:54 PM Chest X-Ray 10/06/24 13:53 XR chest 1V portable CLINICAL HISTORY: dizziness COMPARISON STUDY: Chest radiograph January 07, 2024. FINDINGS: Right shoulder arthroplasty is incidentally noted. There are median sternotomy wires and a prosthetic cardiac valve. Cardiomegaly is unchanged. There is no evidence for pulmonary edema. No pneumothorax or pleural effusion. No consolidation to suggest pneumonia. IMPRESSION: No acute cardiopulmonary findings. No change in appearance of the chest. ACT 112: Negative or not required by law. Electronically signed by: Edward Vo M.D. 10/06/2024 2:[address] 10/06/24 13:53 CT OF THE HEAD WITHOUT CONTRAST CLINICAL HISTORY: fall from standing COMPARISON STUDY: Head CT April 23, 2023. TECHNIQUE: Helical axial images of the head were obtained without IV contrast. Automated exposure control was utilized for the study. A dose lowering technique was utilized adhering to the principles of ALARA. FINDINGS: No acute intracranial hemorrhage, midline shift or mass effect is present. The ventricular system is stable. 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 The basal cisterns are patent. No extra-axial collections are present. There are no findings to suggest acute dural sinus thrombosis or acute territorial infarct. No significant calvarial abnormalities are present. Visualized portions of the sinuses and mastoid air cells are clear. IMPRESSION: 1. No acute intracranial findings. No change in appearance of the brain. 2. No calvarial fractures. ACT 112: Negative or not required by law. Electronically signed by: Edward Vo M.D. 10/06/2024 2:50 PM Shoulder X-Ray 10/06/24 14:01 XR shoulder RT min 2V routine CLINICAL HISTORY: R arm ecchymosis and pain COMPARISON: 11/10/2021 FINDINGS: Right shoulder prosthesis shows no hardware complication. No fracture or dislocation. 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 IMPRESSION: No acute findings. ACT 112: Negative or not required by law. Electronically signed by: Osvaldo Roy M.D. 10/06/2024 2:23 PM Discharge Plan Visit Data Chief Complaint: Trauma Stated Complaint: FALL, HIP PAIN ED Provider: Rima Conte Discharge Problem: Fracture, intertrochanteric, right femur, Fall from standing Forms Stand Alone Forms: [facility] [employer] Prescriptions Prescriptions: No Action simvastatin [Zocor] 20 mg tablet 20 mg PO HS Qty: 90 3RF omeprazole 20 mg capsule,delayed release(DR/EC) 20 mg PO QAM Qty: 90 3RF tramadol 50 mg tablet 50 mg PO Q6H PRN (Reason: pain) Qty: 30 0RF Eliquis 5 mg tablet 5 mg PO BID 90 Days Qty: 180 3RF tramadol 50 mg tablet 50 mg PO Q6H PRN (Reason: pain) Qty: 30 0RF losartan 25 mg tablet 25 mg PO QAM Qty: 90 1RF buspirone 10 mg tablet 5 - 10 mg PO Q8H Qty: 90 0RF Rx Instructions: 1/2 to 1 pill orally Q 8 HR; patient takes 1/2 BID metoprolol tartrate 25 mg tablet 25 mg PO BID Qty: 180 3RF acetaminophen [Tylenol] 325 mg Tablet 1 - 2 tabs PO Q6H PRN (Reason: Pain) cyanocobalamin (vitamin B-12) [Vitamin B-12] 1,000 mcg Tablet 1,000 mcg PO HS calcium carbonate [Calcium 600] 600 mg calcium (1,500 mg) Tablet 600 mg PO QAM docusate sodium [Colace] 100 mg Capsule 100 mg PO QAM Glucosamine Chondroitin 550-30-1 mg Capsule 1 cap PO BID aspirin 81 mg Tablet,Delayed Release (Dr/Ec) 81 mg PO QAM Referrals Referrals: Haylee Hartley DO [Primary Care Provider] -
--- NOTE | 2024-10-06 14:19 | XRay Report ---
XR hip RT 2V w pelvis CLINICAL HISTORY: R hip pain s/p fall from standing COMPARISON: 04/23/2023 FINDINGS: There is an acute mildly displaced mildly comminuted intertrochanteric fracture proximal r ight femur. No other fracture or dislocation seen. IMPRESSION: Acute fracture proximal right femur. ACT 112: Negative or not required by law. Electronically signed by: Osvaldo Roy M.D. 10/06/2024 2:17 PM
--- NOTE | 2024-10-06 14:25 | XRay Report ---
XR shoulder RT min 2V routine CLINICAL HISTORY: R arm ecchymosis and pain COMPARISON: 11/10/2021 FINDINGS: Right shoulder prosthesis shows no hardware complication. No fracture or dislocation. Ther e is AC joint osteoarthritis. IMPRESSION: No acute findings. ACT 112: Negative or not required by law. Electronically signed by: Osvaldo Roy M.D. 10/06/2024 2:23 PM
--- NOTE | 2024-10-06 14:31 | XRay Report ---
XR chest 1V portable CLINICAL HISTORY: dizziness COMPARISON STUDY: Chest radiograph January 07, 2024. FINDINGS: Right shoulder arthroplasty is incidentally noted. There are median sternotomy wires and a prosthetic cardiac valve. Cardiomegaly is unchanged. There is no evidence for pulmonary edema. No pne umothorax or pleural effusion. No consolidation to suggest pneumonia. IMPRESSION: No acute cardiopulmonary findings. No change in appearance of the chest. ACT 112: Negative or not required by law. Electronically signed by: Edward Vo M.D. 10/06/2024 2:29 PM
[2024-10-06 14:39] LABS: Basophils # (auto) 0.03 K/uL (0.00-0.20); Basophils % (auto) 0.6 %; Eosinophils # (auto) 0.05 K/uL (0.00-0.50); Hematocrit (blood only) 33.5 % (42.0-52.0); Hemoglobin 11.2 g/dl (14.0-18.0); Immature Granulocytes # (auto) 0.04 K/uL (0.01-0.20); Immature Granulocytes % (auto) 0.8 %; Mean Corpuscular Hemoglobin 31.1 pg (25.0-34.0); Mean Corpuscular Hgb Conc 33.4 g/dL (32.0-36.0); Mean Corpuscular Volume 93.1 fL (80.0-100.0); Mean Platelet Volume 10.4 fL (9.4-12.4); Neutrophils # (auto) 3.89 K/uL (1.40-6.50); Neutrophils % (auto) 77.6 %; Platelet Count 133 K/uL (130-400); RDW Coefficient of Variation 13.9 % (11.5-14.5); RDW Standard Deviation 47.7 fL (36.4-46.3); White Blood Count 5.01 K/ul (4.8-10.8)
[2024-10-06] MEDS: ACETAMINOPHEN 1,000 MG/100 ML VIAL IV STA (14:42)
--- NOTE | 2024-10-06 14:49 | Electrocardiogram Report ---
Test Reason : Blood Pressure : */* mmHG Vent. Rate : 88 BPM Atrial Rate : * BPM P-R Int : * ms QRS Dur : 122 ms QT Int : 396 ms P-R-T Axes : * -28 52 degrees QTcB Int : 479 ms Atrial fibrillation with premature ventricular or aberrantly conducted complexes Right bundle branch block Abnormal ECG When compared with ECG of 17-Feb-2024 15:04, No significant change was found Confirmed by Mac Vargas ([id number]) on 10/06/2024 2:48:34 PM Referred By: Confirmed By: Mac Vargas
--- NOTE | 2024-10-06 14:52 | CT Scan Report ---
CT OF THE HEAD WITHOUT CONTRAST CLINICAL HISTORY: fall from standing COMPARISON STUDY: Head CT April 23, 2023. TECHNIQUE: Helical axial images of the head were obtained without IV contrast. Automated exposure con trol was utilized for the study. A dose lowering technique was utilized adhering to the principles o f ALARA. FINDINGS: No acute intracranial hemorrhage, midline shift or mass effect is present. The ventricular system is stable. 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 The basal cisterns are patent. No extra-axial collections are present. Ther e are no findings to suggest acute dural sinus thrombosis or acute territorial infarct. No significan t calvarial abnormalities are present. Visualized portions of the sinuses and mastoid air cells are c lear. IMPRESSION: 1. No acute intracranial findings. No change in appearance of the brain. 2. No calvarial fractures. ACT 112: Negative or not required by law. Electronically signed by: Edward Vo M.D. 10/06/2024 2:50 PM
--- NOTE | 2024-10-06 14:56 | CT Scan Report ---
CT cervical spine wo con CT DOSE: 1161.03 mGy.cm CLINICAL HISTORY: fall from standing. COMPARISON: 05/28/2013 TECHNIQUE: Multiple axial CT images of the cervical spine were obtained without contrast. A dose low ering technique was utilized adhering to the principles of ALARA. FINDINGS: There is severe diffuse degenerative disc disease. There is stable grade 1 anterolisthesis of C7 on T1. No fracture seen. IMPRESSION: No cervical spine fracture seen. ACT 112: Negative or not required by law. The above report was generated using voice recognition software. It may contain grammatical, syntax o r spelling errors. Electronically signed by: Osvaldo Roy M.D. 10/06/2024 2:54 PM
[2024-10-06 15:02] LABS: Albumin Globulin Ratio 1.5 (0.9-2); Albumin Level 3.8 gm/dl (3.4-5.0); BUN Creatinine Ratio 17.9 (10-20); Bilirubin,Total 0.8 mg/dl (0.2-1.0); Calcium 8.8 mg/dl (8.6-10.3); Globulin 2.5 gm/dl (2.5-4.0); Magnesium 1.6 mg/dl (1.7-2.4); Total Protein 6.3 gm/dl (6.0-8.3)
[2024-10-06 15:10] LABS: INR 1.1 (0.9-1.1); Prothrombin Time 11.8 Seconds (9.0-12.0)
[2024-10-06 15:17] LABS: Thyroid Stimulating Hormone 2.861 uIu/ml (0.300-4.500)
--- NOTE | 2024-10-06 15:18 | History & Physical Report ---
Date of Service October 06, 2024 Assessment & Plan (1) Fracture, intertrochanteric, right femur: (2) Fall from standing: (3) PAF (paroxysmal atrial fibrillation): Plan Tavo is an 84-year-old male with PMH of arthritis, paroxysmal atrial fibrillation (on Eliquis), HTN, CAD, aortic valve replacement, and right knee replacement. He presented via EMS on 10/06 after sustaining a ground-level fall. Patient lives alone. He was in the kitchen making lunch, when he started to feel "woozy" and knew that he was going to fall. He fell fell and struck his head, right shoulder, and right hip. He does not believe he lost consciousness. #Fall/acute right femur fracture While trauma alert was called in the ED (headstrike on Eliquis), initial head/cervical spine CT are without acute findings; okay for [facility] Right hip/pelvic x-ray revealed acute fracture of proximal right femur Activity: Bedrest Revised cardiac risk index: 1 (h/o TIA) Orthopedic surgery consult appreciated Plan for OR on 10/07 NPO at midnight Hold Eliquis for now Per ortho, will defer Kcentra or reversal prior to surgery IV acetaminophen and morphine as needed for pain control Continuous pulse oximetry #Hypertension Continue metoprolol BID Hold losartan morning of 10/07 prior to potential OR #Anemia Chronic; Hgb 11.2 on arrival No bruising or hematoma noted on the right hip or thigh clinical exam Continue to trend H&H #History of TIA Hold aspirin morning of 10/07; no history of heart stents #Hypomagnesemia Mild; Mag 1.6 on arrival Replete, trend Disposition: Admit to [facility] Full code Regular diet, but n.p.o. at midnight VTE PPx: Hold Eliquis History of Present Illness Chief Complaint: Trauma Primary Care Provider: Haylee Hartley DO Tavo is an 84-year-old male with PMH of arthritis, paroxysmal atrial f ibrillation (on Eliquis), HTN, CAD, aortic valve replacement, and right knee replacement. He presented via EMS on 10/06 after sustaining a ground-level fall. Patient lives alone. He was in the kitchen making lunch, when he started to feel "woozy" and knew that he was going to fall. Patient reports he is feeling both dizziness, like the room spinning, and lightheaded just before falling. He fell fell and struck his head, right shoulder, and right hip. He does not believe he lost consciousness. He does not believe he tripped on anything, or his legs gave out on anything. After falling, patient was able to drag himself over to his armchair and reach his telephone. Patient does have history of falling around 2 years ago in his basement on the last step; he does report he felt "funny" and "woozy" prior to the fall as well. Patient ambulates with a walker outside, and cane inside at baseline. Patient took all his regular morning medicine today, including his Eliquis. Patient manages his own medicine at home; no recent change in medications. He rates the pain in his right thigh/hip as a 3/10 at present after receiving pain medicine in the ED. He characterizes it as a sharp, constant pain. No radiation down the leg or into the back. He denies any right shoulder pain at this time. Patient denies smoking, tobacco use, or recent alcohol use. Daughter at bedside does report patient has a history of TIAs. Patient denies PMH of IN, CHF, diabetes, or insulin use. Patient's vitals are stable at time of admission. Fentanyl and Zofran given en route ED course: Acetaminophen 1000 mg IV ROS: Patient endorses right hip pain, Patient denies fever, chills, night-sweats, headache, chest pain, SOB, cough, abdominal pain, N/V, burning with urination, blood in the urine/stool, or numbness/tingling in the right leg. Allergies Allergy/AdvReac Type Severity Reaction Status Date / Time morphine AdvReac Mild GI SYMPTOMS Verified 10/06/24 16:09 Home Medications Medication Instructions Recorded Confirmed Type acetaminophen 325 mg tablet 2 tabs PO Q6H PRN Pain 08/02/18 10/06/24 History (Tylenol) calcium carbonate (Calcium 600) 600 mg PO QAM 08/02/18 10/06/24 History cyanocobalamin (vitamin B-12) 1,000 mcg PO HS 08/02/18 10/06/24 History 1,000 mcg tablet (Vitamin B-12) docusate sodium 100 mg capsule 100 mg PO QAM 08/02/18 10/06/24 History (Colace) glucosamine sulf dipot 1 cap PO BID 10/05/21 10/06/24 History chlr,msm,chond 550 mg-C 30 mg-debbie 1 mg capsule (Glucosamine Chondroitin) aspirin 81 mg tablet,delayed 81 mg PO QAM 04/23/23 10/06/24 History release simvastatin 20 mg tablet (Zocor) 20 mg PO HS #90 tabs 11/21/23 10/06/24 Rx omeprazole 20 mg capsule,delayed 20 mg PO QAM #90 caps 12/17/23 10/06/24 Rx release apixaban 5 mg tablet (Eliquis) 5 mg PO BID 90 days #180 tabs 07/10/24 10/06/24 Rx losartan 25 mg tablet 25 mg PO QAM #90 tabs 08/11/24 10/06/24 Rx buspirone 10 mg tablet 5 - 10 mg (0.5 - 1 x 10 mg) PO Q8H 08/19/24 10/06/24 Rx anxiety #90 tabs metoprolol tartrate 25 mg tablet 25 mg PO BID #180 tabs 09/04/24 10/06/24 Rx Past Med/Surg History Problem List (Updated 10/06/24 @ 15:28 by Rima Conte MD) Fall from standing (Acute) Fracture, intertrochanteric, right femur (Acute) Left leg swelling B12 deficiency Acid reflux Controlled and stable Non-occlusive coronary artery disease Mild/nonobstructive per cardio records Per PCP note 09/20/21= Underwent catheterization 2013 revealing less than 30% proximal LAD, 30-40% mid LAD, 40-50% D2 stenosis. Status post right knee replacement (~02/2024) History of aortic valve replacement with bioprosthetic valve Benign essential hypertension PAF (paroxysmal atrial fibrillation) Atherogenic dyslipidemia Rotator cuff arthropathy of left shoulder Vitamin D deficiency Family history of colon cancer Arthritis, multiple joint involvement (Chronic) Medical History Atrial fibrillation Hypertension Chronic anemia Aortic stenosis Moderate mitral regurgitation Hyperlipidemia Chronic lower back pain Hearing loss in left ear Surgical History Status post reverse total replacement of right shoulder (~11/2021) S/P aortic valve replacement (~2013) History of ventral hernia repair History of tooth extraction History of blepharoplasty History of bilateral cataract extraction History of cardiac cath (~02/19/14) History of sinus surgery History of arthroscopic knee surgery History of colonoscopy Family History Father Heart disease Mother Heart disease Sister Colorectal cancer Brother Renal carcinoma Hypertension Son Melanoma Other No family history of adverse response to anesthesia Denies family history of Ovarian cancer Prostate cancer Myocardial infarction Breast cancer Lung cancer Social History Smoking Status: Never smoker Tobacco Type: Cigars Second Hand Exposure: Yes (hx, smoked); Do You Dip or Chew Tobacco: No; Hx Alcohol Use: No Hx Substance Use: No Preferred Language: Cape Verdean Communication Ability: Effective Visual Impairment: Limited Hearing Ability: Normal Group Fitness Instructor Required: No Beliefs That Will Affect Care: None marital status: / Current Living Situation: Alone current occupational status: retired How many Children do You have: 5 Feels Safe at Home: Yes Childhood Exposure to Second-Hand Smoke: Yes (dad did when he was real young) caffeine: Yes (coffee ) Dental Care, Regularly: Yes Physical Activity Frequency: 5-6 Times per Week Physical Activity Frequency Comment: doesn't ride bike anymore Seatbelt Use: never Sunscreen Use: No Assistive Devices: Cane Review of Systems Review of Systems: See HPI above Physical Exam Physical Exam: General: Mild physical distress secondary to right hip/thigh pain; pleasant affect; family bedside; non-toxic appearing; frail appearing; cooperative; SpO2 98% on RA HEENT: normocephalic, atraumatic; no scleral icterus; PERRLA; vision and hearing grossly intact Neck: supple; trachea midline Skin: warm, dry without signs of tenting; no cyanosis Right shoulder: Purple/red bruising noted on the lateral aspect of the right shoulder; NTP CV: chest wall NTP; irregularly irregular rhythm, rate controlled around 80 bpm; S1/S2 normal; no murmurs/rubs/gallops; pulses intact and symmetric at radial, DP, and PT Lungs: no acute respiratory distress; symmetrical chest wall expansion; clear br eath sounds across all lung benito w/o adventitious sounds; no wheezing ABD: Soft, NTP; BS present; no rebound/guarding; no distention Right hip: Mildly NTP; no signs of bruising or hematoma MSK: no tics or fasciculations; no edema noted in the LEs b/l, nonerythematous; patient demonstrates ability to wiggle toes/plantarflex/dorsiflex bilaterally without deficits; both feet are neurovascularly intact at DP/PT Neuro: A&Ox3; normal mood and affect; fluent speech; no focal deficits; patient reports mildly diminished sensation on the right lower extremity when compared to the left lower extremity assessed via light touch Results & Data Results & Data Vital Signs (Past 12 Hours) Vital Signs Temp Pulse Resp BP Pulse Ox O2 Del Method O2 Flow Rate 10/06/24 14:16 84 10/06/24 14:10 36.5 C 79 18 118/78 99 Room Air 99 10/06/24 14:04 36.5 C 79 18 118/78 99 Room Air Laboratory Results Abnormal lab results 10/06/24 Range/Units 14:20 RBC 3.60 L (4.70-6.10) M/uL Hgb 11.2 L (14.0-18.0) g/dl Hct 33.5 L (42.0-52.0) % RDW Std Deviation 47.7 H (36.4-46.3) fL Lymph # (Auto) 0.60 L (1.20-3.40) K/uL Glucose 137 H (70-99(Fasting)) mg/dl Magnesium 1.6 L (1.7-2.4) mg/dl Lipase 9 L (11-82) U/L Diagnostic Findings Hip/Pelvis X-Ray 10/06/24 13:52 XR hip RT 2V w pelvis CLINICAL HISTORY: R hip pain s/p fall from standing COMPARISON: 04/23/2023 FINDINGS: There is an acute mildly displaced mildly comminuted intertrochanteric fracture proximal right femur. No other fracture or dislocation seen. IMPRESSION: Acute fracture proximal right femur. ACT 112: Negative or not required by law. Electronically signed by: Osvaldo Roy M.D. 10/06/2024 2:[address] 10/06/24 13:53 CT cervical spine wo con CT DOSE: 1161.03 mGy.cm CLINICAL HISTORY: fall from standing. COMPARISON: 05/28/2013 TECHNIQUE: Multiple axial CT images of the cervical spine were obtained without contrast. A dose lowering technique was utilized adhering to the principles of ALARA. FINDINGS: There is severe diffuse degenerative disc disease. There is stable grade 1 anterolisthesis of C7 on T1. No fracture seen. IMPRESSION: No cervical spine fracture seen. ACT 112: Negative or not required by law. The above report was generated using voice recognition software. It may contain grammatical, syntax or spelling errors. Electronically signed by: Osvaldo Roy M.D. 10/06/2024 2:54 PM Chest X-Ray 10/06/24 13:53 XR chest 1V portable CLINICAL HISTORY: dizziness COMPARISON STUDY: Chest radiograph January 07, 2024. FINDINGS: Right shoulder arthroplasty is incidentally noted. There are median sternotomy wires and a prosthetic cardiac valve. Cardiomegaly is unchanged. There is no evidence for pulmonary edema. No pneumothorax or pleural effusion. No consolidation to suggest pneumonia. IMPRESSION: No acute cardiopulmonary findings. No change in appearance of the chest. ACT 112: Negative or not required by law. Electronically signed by: Edward Vo M.D. 10/06/2024 2:[address] 10/06/24 13:53 CT OF THE HEAD WITHOUT CONTRAST CLINICAL HISTORY: fall from standing COMPARISON STUDY: Head CT April 23, 2023. TECHNIQUE: Helical axial images of the head were obtained without IV contrast. Automated exposure control was utilized for the study. A dose lowering technique was utilized adhering to the principles of ALARA. FINDINGS: No acute intracranial hemorrhage, midline shift or mass effect is present. The ventricular system is stable. 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 The basal cisterns are patent. No extra-axial collections are present. There are no findings to suggest acute dural sinus thrombosis or acute territorial infarct. No significant calvarial abnormalities are present. Visualized portions of the sinuses and mastoid air cells are clear. IMPRESSION: 1. No acute intracranial findings. No change in appearance of the brain. 2. No calvarial fractures. ACT 112: Negative or not required by law. Electronically signed by: Edward Vo M.D. 10/06/2024 2:50 PM Shoulder X-Ray 10/06/24 14:01 XR shoulder RT min 2V routine CLINICAL HISTORY: R arm ecchymosis and pain COMPARISON: 11/10/2021 FINDINGS: Right shoulder prosthesis shows no hardware complication. No fracture or dislocation. 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 IMPRESSION: No acute findings. ACT 112: Negative or not required by law. Electronically signed by: Osvaldo Roy M.D. 10/06/2024 2:23 PM ECG Additional Comments: ECG revealed atrial fibrillation with PVCs at 88 bpm; QTc 479 Code Status & VTE Plan Code Status Full code VTE Prophylaxis Plan VTE Prophylaxis will be ordered: No Supervising Physician Co-Signing Physician Notes I personally saw and examined the patient. I independently reviewed the labs, EKG, imaging, problem list, medication list, past medical history and family history. I verified all alatorre points and agree with Kenyon Humphrey PA-C with the following exceptions and/or additions: 84 year old male presents to the ER with a fall and right hip pain O/E HS irregular rhythm, regular rate, no murmurs, Chest CTAB, Abdo SNT, shortened and externally rotated right leg with normal PT/DP pulses A/P Acute right hip fracture - Hold Eliquis, last dose 7:30am 10/06, Pain control, NPO at midnight, Consult orthopedics, continue metoprolol perioperatively pAFib - Continue metoprolol, rate controlled PG Care Time/CCT Total # of Minutes Spent Total Time Spent with Patient: Total time spent is greater than 50% in coordination of care (as documented) at patient's floor/unit and/or counseling patient: Coding [place] [address] INT INP/OBS CARE 2/55MIN Patient Type Established Medical Decision Making Moderate Complexity Diagnoses Fracture, intertrochanteric, right femur S72.141A Fall from standing W19.XXXA PAF (paroxysmal atrial fibrillation) I48.0
[2024-10-06] MEDS: MAGNESIUM SULFATE / D5W 1 GM/100 ML BAG IV ONE (16:17)
[2024-10-06] MEDS ORDERED: MoRPHine SULFATE 2 MG/ML CARP IV PRN (18:22)
[2024-10-06] MEDS ORDERED: MoRPHine SULFATE 4 MG/ML 1 ML CARP\\VIAL IV PRN (18:22)
[2024-10-06] MEDS ORDERED: bisacodyL 10 MG SUPP PR PRN (18:33)
[2024-10-06] MEDS ORDERED: NALOXONE HCL 0.4 MG/1 ML VIAL/CARP IV PRN (18:33)
[2024-10-06] MEDS ORDERED: MAGNESIUM HYDROXIDE SUSP 30 ML UDC PO PRN (18:33)
[2024-10-06] MEDS: ACETAMINOPHEN 1,000 MG/100 ML VIAL IV PRN (18:53)
[2024-10-06 19:56] LABS: Appearance Urine Clear (Clear); Bacteria Urine Automated None Seen (None Seen); Bilirubin Urine Negative (Negative); Blood Urine Trace (Negative); Cast Urine Automated 0-2 /lpf (0-2); Color Urine Yellow; Epithelial Cell Urine Auto 0-2 /hpf (0-2); Glucose Urine UA Negative (Negative); Ketones Urine 2+ (Negative); Leukocyte Esterase Urine Negative (Negative); Nitrite Urine Negative (Negative); Protein Urine Trace (Negative); Specific Gravity Urine 1.025 (1.000-1.030); Urobilinogen Urine Negative (Negative); WBC Urine Automated 0-5 /hpf (0-5)
[2024-10-06] MEDS: busPIRone 5 MG TAB PO SCH (21:02)
[2024-10-06] MEDS: METOPROLOL TARTRATE 25 MG TAB PO SCH (21:02)
[2024-10-06] MEDS: SIMVASTATIN 20 MG TAB PO SCH (21:02)
--- NOTE | 2024-10-07 07:42 | Orthopedic Consultation ---
Date of Service October 07, 2024 Assessment & Plan (1) Fracture, intertrochanteric, right femur: NPO. Eliquis is on hold. He was educated on this fracture and management of this. I did recommend surgical fixation, specifically intramedullary nailing. Procedure was explained including risks, benefits, and alternatives to surgery. He wishes to proceed with surgery to fix this. We will plan on surgery today with Dr. Mac. History of Present Illness Reason for Consultation: . Requesting Physician: . Attending Physician: Tammy Stringer MD . 84 year old patient admitted yesterday with a right hip fracture. He fell while in his kitchen yesterday and was able to crawl to his phone. Denies any pain in his hip prior to falling. Denies any other injuries at this time. He does use a cane normally. He is on eliquis for atrial fibriallation. Eliquis is on hold. Allergies Allergy/AdvReac Type Severity Reaction Status Date / Time morphine AdvReac Mild GI SYMPTOMS Verified 10/06/24 16:09 Home Medications Medication Instructions Recorded Confirmed Type acetaminophen 325 mg tablet 2 tabs PO Q6H PRN Pain 08/02/18 10/06/24 History (Tylenol) calcium carbonate (Calcium 600) 600 mg PO QAM 08/02/18 10/06/24 History cyanocobalamin (vitamin B-12) 1,000 mcg PO HS 08/02/18 10/06/24 History 1,000 mcg tablet (Vitamin B-12) docusate sodium 100 mg capsule 100 mg PO QAM 08/02/18 10/06/24 History (Colace) glucosamine sulf dipot 1 cap PO BID 10/05/21 10/06/24 History chlr,msm,chond 550 mg-C 30 mg-debbie 1 mg capsule (Glucosamine Chondroitin) aspirin 81 mg tablet,delayed 81 mg PO QAM 04/23/23 10/06/24 History release simvastatin 20 mg tablet (Zocor) 20 mg PO HS #90 tabs 11/21/23 10/06/24 Rx omeprazole 20 mg capsule,delayed 20 mg PO QAM #90 caps 12/17/23 10/06/24 Rx release apixaban 5 mg tablet (Eliquis) 5 mg PO BID 90 days #180 tabs 07/10/24 10/06/24 Rx losartan 25 mg tablet 25 mg PO QAM #90 tabs 08/11/24 10/06/24 Rx buspirone 10 mg tablet 5 - 10 mg (0.5 - 1 x 10 mg) PO Q8H 08/19/24 10/06/24 Rx anxiety #90 tabs metoprolol tartrate 25 mg tablet 25 mg PO BID #180 tabs 09/04/24 10/06/24 Rx Past Med/Surg History Problem List Fall from standing (Acute) Fracture, intertrochanteric, right femur (Acute) Left leg swelling B12 deficiency Acid reflux Controlled and stable Non-occlusive coronary artery disease Mild/nonobstructive per cardio records Per PCP note 09/20/21= Underwent catheterization 2013 revealing less than 30% proximal LAD, 30-40% mid LAD, 40-50% D2 stenosis. Status post right knee replacement (~02/2024) History of aortic valve replacement with bioprosthetic valve Benign essential hypertension PAF (paroxysmal atrial fibrillation) Atherogenic dyslipidemia Rotator cuff arthropathy of left shoulder Vitamin D deficiency Family history of colon cancer Arthritis, multiple joint involvement (Chronic) Medical History Atrial fibrillation On Eliquis Hypertension Chronic anemia Chronic and mild per PCP records Aortic stenosis s/p AVR 2013, well functioning per 05/2023 ECHO. H/o valvular cardiomyopathy- resolved Moderate mitral regurgitation Moderate MR per 05/2023 ECHO Hyperlipidemia Chronic lower back pain Chronic and stable Hearing loss in left ear No hearing aid Surgical History Status post reverse total replacement of right shoulder (~11/2021) S/P aortic valve replacement (~2013) @ [facility] – [place]--bioprosthetic--follows with Dr. Mehul LOPEZ History of ventral hernia repair right sided History of tooth extraction History of blepharoplasty History of bilateral cataract extraction History of cardiac cath (~02/19/14) @ [facility] prior to AVR History of sinus surgery pt states he fractured his skull above right eye and had area packed @ [facility] History of arthroscopic knee surgery History of colonoscopy Family History Father Heart disease Mother Heart disease Sister Colorectal cancer Brother Renal carcinoma Hypertension Son Melanoma Other No family history of adverse response to anesthesia Denies family history of Ovarian cancer Prostate cancer Myocardial infarction Breast cancer Lung cancer Social History Smoking Status: Never smoker Tobacco Type: Cigars Second Hand Exposure: Yes (hx, smoked); Do You Dip or Chew Tobacco: No; Hx Alcohol Use: No Hx Substance Use: No Preferred Language: Romanian Communication Ability: Effective Visual Impairment: Limited Hearing Ability: Normal Community Health Nurse Staff Required: No Beliefs That Will Affect Care: None marital status: / Current Living Situation: Alone current occupational status: retired How many Children do You have: 5 Feels Safe at Home: Yes Childhood Exposure to Second-Hand Smoke: Yes (dad did when he was real young) caffeine: Yes (coffee ) Dental Care, Regularly: Yes Physical Activity Frequency: 5-6 Times per Week Physical Activity Frequency Comment: doesn't ride bike anymore Seatbelt Use: never Sunscreen Use: No Assistive Devices: Cane Review of Systems All systems reviewed & are unremarkable except as noted in HPI & below. Physical Exam .alert and oriented. NAD VSS Right leg: shortened and externally rotated. Able to dorsiflex and plantarflex. NVI. Hip or knee motion not assessed. Results & Data Results & Data Laboratory Results . Diagnostic Findings . PG Care Time/CCT Total # of Minutes Spent Total Time Spent with Patient: Total time spent is greater than 50% in coordination of care (as documented) at patient's floor/unit and/or counseling patient: Coding Level of Care Code 02637 IN/OBS CONSULT LVL 4,60M (57 - DECISION FOR SURGERY) Diagnoses Fracture, intertrochanteric, right femur S72.141A
[2024-10-07 07:45] LABS: Hematocrit (blood only) 28.6 % (42.0-52.0); Hemoglobin 9.7 g/dl (14.0-18.0); Mean Corpuscular Hemoglobin 31.5 pg (25.0-34.0); Mean Corpuscular Hgb Conc 33.9 g/dL (32.0-36.0); Mean Corpuscular Volume 92.9 fL (80.0-100.0); Mean Platelet Volume 10.3 fL (9.4-12.4); Platelet Count 111 K/uL (130-400); RDW Coefficient of Variation 14.2 % (11.5-14.5); RDW Standard Deviation 48.5 fL (36.4-46.3); Red Blood Count 3.08 M/uL (4.70-6.10); White Blood Count 6.59 K/ul (4.8-10.8)
[2024-10-07] MEDS: PANTOprazole 40 MG TAB PO SCH (07:50)
[2024-10-07 08:10] LABS: Calcium 8.7 mg/dl (8.6-10.3); Magnesium 1.9 mg/dl (1.7-2.4); Potassium 4.1 mmol/L (3.5-5.1)
[2024-10-07 08:16] LABS: BUN Creatinine Ratio 17.3 (10-20); Creatinine Clr Calc Pharmacy 68.1 ml/min
[2024-10-07] MEDS: DOCUSATE SODIUM 100 MG CAP PO SCH (08:24)
[2024-10-07] MEDS: SODIUM CHLORIDE 0.9% 1,000 ML IV SCH (09:24)
[2024-10-07] MEDS: TRANEXAMIC ACID / 0.7% NACL 1,000 MG/100 ML BAG IV ONE (10:28)
--- NOTE | 2024-10-07 10:41 | Anesthesiology Consultation ---
Date of Service October 07, 2024 Assessment & Plan Chart Review Chart Review: Acceptable Risk for Surgery and Patient NOT seen in Pre Admission Testing Consults Requested none ASA ASA4 Proposed Anesthesia Anesthesia Type: General Risk / Benefits Reviewed With: PT / POA / Parent / Guardian, Accepts Plan and Informed Consent Obtained History Surgery Operation Date: 10/07/24 11:00 Proposed Procedures p Right Long Troch Nail - Christiano Mac MD Height/Weight Height: 5 ft 8 in Weight: 104.6 kg Allergies Allergy/AdvReac Type Severity Reaction Status Date / Time morphine AdvReac Mild GI SYMPTOMS Verified 10/06/24 16:09 Medications Home Medications Medication Instructions Recorded Confirmed Last Taken acetaminophen 325 mg tablet 2 tabs PO Q6H PRN Pain 08/02/18 10/06/24 02/16/24 22:00 (Tylenol) calcium carbonate (Calcium 600) 600 mg PO QAM 08/02/18 10/06/24 10/06/24 cyanocobalamin (vitamin B-12) 1,000 mcg PO HS 08/02/18 10/06/24 10/05/24 1,000 mcg tablet (Vitamin B-12) docusate sodium 100 mg capsule 100 mg PO QAM 08/02/18 10/06/24 10/06/24 (Colace) glucosamine sulf dipot 1 cap PO BID 10/05/21 10/06/24 10/06/24 chlr,msm,chond 550 mg-C 30 mg-debbie 1 mg capsule (Glucosamine Chondroitin) aspirin 81 mg tablet,delayed 81 mg PO QAM 04/23/23 10/06/24 10/06/24 release simvastatin 20 mg tablet (Zocor) 20 mg PO HS #90 tabs 11/21/23 10/06/24 10/05/24 omeprazole 20 mg capsule,delayed 20 mg PO QAM #90 caps 12/17/23 10/06/24 02/17/24 06:00 release apixaban 5 mg tablet (Eliquis) 5 mg PO BID 90 days #180 tabs 07/10/24 10/06/24 10/06/24 AM DOSE losartan 25 mg tablet 25 mg PO QAM #90 tabs 08/11/24 10/06/24 10/06/24 buspirone 10 mg tablet 5 - 10 mg (0.5 - 1 x 10 mg) PO Q8H 08/19/24 10/06/24 10/06/24 anxiety #90 tabs AM metoprolol tartrate 25 mg tablet 25 mg PO BID #180 tabs 09/04/24 10/06/24 10/06/24 AM DOSE Active Medications Generic Name Dose Route Start Last Admin Trade Name Freq PRN Reason Stop Dose Admin Buspirone HCl 5 mg 10/06/24 21:00 10/07/24 07:50 Buspirone 5 Mg Tab PO 11/05/24 20:59 5 mg Q12H STEPHEN Administration Docusate Sodium 100 mg 10/07/24 09:00 10/07/24 08:24 Docusate Sodium 100 Mg Cap PO 11/06/24 08:59 100 mg QAM STEPHEN Administration Acetaminophen 1,000 mg in 100 mls @ 400 mls/hr 10/06/24 18:22 10/07/24 06:32 Ofirmev IV 10/09/24 18:21 Infused Q8H PRN Infusion Fever/Mild Pain (Pain 1,2,3) Sodium Chloride 1,000 mls @ 100 mls/hr 10/07/24 09:00 10/07/24 09:24 Nss IV 10/07/24 18:59 100 mls/hr .Q10H STEPHEN Administration Metoprolol Tartrate 25 mg 10/06/24 21:00 10/07/24 07:50 Metoprolol Tartrate 25 Mg Tab PO 11/05/24 20:59 25 mg BID STEPHEN Administration Pantoprazole Sodium 40 mg 10/07/24 09:00 10/07/24 07:50 Pantoprazole 40 Mg Tab PO 11/06/24 08:59 40 mg QAM STEPHEN Administration Simvastatin 20 mg 10/06/24 21:00 10/06/24 21:02 Simvastatin 20 Mg Tab PO 11/05/24 20:59 20 mg HS STEPHEN Administration NPO Date Last Intake of Fluids: 10/06/24 Time Last Intake of Fluids: 21:00 Last Intake of Fluids Comment: 0800am sip water w/ meds Date Last Intake of Solids: 10/06/24 Time Last Intake of Solids: 21:00 Past Medical History Medical History Atrial fibrillation On Eliquis Hypertension Chronic anemia Chronic and mild per PCP records Aortic stenosis s/p AVR 2013, well functioning per 05/2023 ECHO. H/o valvular cardiomyopathy- resolved Moderate mitral regurgitation Moderate MR per 05/2023 ECHO Hyperlipidemia Chronic lower back pain Chronic and stable Hearing loss in left ear No hearing aid Exercise / Class Metabolic Activity III < 4 Walking/Shop/Light housework Past Family History Family History Father Heart disease Mother Heart disease Sister Colorectal cancer Brother Renal carcinoma Hypertension Son Melanoma Other No family history of adverse response to anesthesia Denies family history of Ovarian cancer Prostate cancer Myocardial infarction Breast cancer Lung cancer Past Surgical History Surgical History Status post reverse total replacement of right shoulder (~11/2021) S/P aortic valve replacement (~2013) @ [facility] [place]--bioprosthetic--follows with Dr. Mehul LOPEZ History of ventral hernia repair right sided History of tooth extraction History of blepharoplasty History of bilateral cataract extraction History of cardiac cath (~02/19/14) @ [facility] prior to AVR History of sinus surgery pt states he fractured his skull above right eye and had area packed @ [facility] History of arthroscopic knee surgery History of colonoscopy Past Anesthesia History No Hx of Anesthesia Complications and No Family Hx of Anesthesia Complications History of PONV No Hx of PONV and No Hx of Motion Sickness Social History Smoking Status: Never smoker Do You Dip or Chew Tobacco: No Hx Alcohol Use: No Hx Substance Use: No substance use type: does not use Physical Exam Vital Signs Last Vital Signs Temp 36.8 C 10/07/24 10:15 Pulse 92 H 10/07/24 10:15 Resp 22 10/07/24 10:15 BP 148/94 H 10/07/24 10:15 Pulse Ox 99 10/07/24 10:15 O2 Del Method Room Air 10/07/24 10:15 O2 Flow Rate 99 10/06/24 14:10 Constitutional + obese; no acute distress ENMT Mouth: + dental restorations; no dentition abnormality Thyromental Distance: > or= 3.5 Finger Breadths Mallampati Class: II Neck normal visual inspection and trachea midline; neck extension not limited Respiratory normal respiratory effort Auscultation: lungs clear to auscultation bilaterally and + diminished lung sounds Cardiovascular Rate/Rhythm: + abnormal rate (irreg./A fib) and + abnormal rhythm (irreg./A fib) Heart Sounds: + murmur (@ apex) Vessels: no carotid bruit Musculoskeletal Spine: normal cervical ROM and no pain with cervical ROM Extremities: full ROM of extremities Neurologic moves all extremities Motor/Sensory: no sensory deficit Psychiatric Orientation: alert and oriented x 3 Testing Laboratory Results 10/07/24 07:03 10/07/24 07:03 PT 11.8 Seconds (9.0-12.0) 10/06/24 14:20 INR 1.1 (0.9-1.1) 10/06/24 14:20 Urine Color Yellow 10/06/24 19:37 Urine Appearance Clear (Clear) 10/06/24 19:37 Urine pH 7.0 (4.5-7.5) 10/06/24 19:37 Ur Specific [place] 1.025 (1.000-1.030) 10/06/24 19:37 Urine Protein Trace (Negative) H 10/06/24 19:37 Urine Glucose (UA) Negative (Negative) 10/06/24 19:37 Urine Ketones 2+ (Negative) H 10/06/24 19:37 Urine Nitrite Negative (Negative) 10/06/24 19:37 Ur Leukocyte Esterase Negative (Negative) 10/06/24 19:37 Urine WBC (Auto) 0-5 /hpf (0-5) 10/06/24 19:37 Urine RBC (Auto) 11-20 /hpf (0-2) H 10/06/24 19:37 U Hyaline Cast (Auto) 0-2 /lpf (0-2) 10/06/24 19:37 U Epithel Cells (Auto) 0-2 /hpf (0-2) 10/06/24 19:37 Urine Bacteria (Auto) None Seen (None Seen) 10/06/24 19:37 Blood Type A Positive 10/06/24 20:17 Antibody Screen NEGATIVE 10/06/24 20:17
--- NOTE | 2024-10-07 10:49 | Communication Note ---
Date of Service: October 07, 2024 10/06/2024 CXR-NAD 10/06/2024-CATA-Salud fib @ 89 w/PVC's;RBBB
[2024-10-07] MEDS ORDERED: fentaNYL citrate PF 100 MCG/2 ML VIAL ONE ×2 (10:50→11:46)
[2024-10-07] MEDS ORDERED: PROPOFOL IV EMULSION 10 MG/ML 20 ML VIAL IV ONE (10:50)
[2024-10-07] MEDS ORDERED: LIDOCAINE 2% 2 ML VIAL/AMP(20MG/ML) INFIL ONE (10:50)
[2024-10-07] MEDS: ceFAZolin 2,000 MG/15 ML IV PUSH IV ONE (11:03)
[2024-10-07] MEDS: ceFAZolin 2000MG 2,000 MG/15 ML SYR IV ONE (11:03)
[2024-10-07] MEDS ORDERED: ONDANSETRON INJ 2 MG/ML 2 ML VIAL ONE (11:46)
[2024-10-07] MEDS ORDERED: DEXAMETHASONE SOD INJ 4 MG/ML VIAL ONE (11:46)
[2024-10-07] MEDS ORDERED: PHENYLEPHRINE 100MCG/ML 5ML SYR ONE (12:02)
[2024-10-07] MEDS: BUPIVACAINE/EPINEPHRINE 0.5% MPF 1:200,000 30 ML VIAL ONE (12:04)
--- NOTE | 2024-10-07 12:36 | Operative Report ---
PG Post Operative Report Pre & Post Diagnosis Operation Date: 10/07/24 11:00 Pre-Op Diagnosis: Fracture, intertrochanteric right femur Post-Op Diagnosis: Fracture, intertrochanteric right femur I identified the patient and participated in the time-out.: Yes Procedure Operation Date: 10/07/24 11:00 Actual Procedures p Intramedullary nailing of right hip fracture - Christiano Mac MD Surgeon Christiano Mac MD Multimedia Designer Kristopher Díaz PA-C Estimated Blood Loss 150 Findings Consistent with Post-Op Diagnosis Specimens None Anesthesia Type General Complications none Disposition Accompanied Patient To Recovery: No Indications Patient is an 84-year-old fairly active independent gentleman who sustained a fall yesterday at home. He fell and landed on his right hip. Acute onset of pain and could not ambulate. He was brought to emergency room where x-ray revealed a right intertrochanteric hip fracture. The patient was admitted to the medicine service, medically optimized, indicated for surgical repair. Description of Procedure Operative implants consist of: 1. Synthes right 360 mm x 11 mm long trochanteric nail. 2. 120 mm helical blade. 3. 52 mm x 5.0 mm distal interlocking screw. The patient was taken the op room, identified, placed on the operating table in the supine position. All conductors were appropriately padded. IV antibiotics arrived by anesthesia team. A general anesthetic was implemented as this patient's been on anticoagulation. He was then placed on the fracture table. The right leg was placed in boot traction of the left leg was placed in a well- leg pierre. Patient also did receive 1 g of tranexamic acid preoperatively. Applied some longitudinal traction of the right femur and internally rotated the foot to the Point to the ceiling. X-ray was brought in. We were able to get a pretty well reduced. There was some slight distraction which we would fix later with some compression. The right hip and leg were then scrubbed with Hibiclens, prepped with ChloraPrep and draped in usual sterile fashion. A slightly curvilinear incision was made just proximal to the the tip of the trochanter. Sharp dissection got through subcutaneous tissues below. Gluteal fascia. Gluteal fascia was incised longitudinally in line with the skin incision. I then placed a guidewire just lateral to the tip of the trochanter and in line with the IM canal in both AP and lateral planes. This did go right to the fracture site. We advanced this down the canal. We measured for nail length and 360 mm nail was selected. I then overreamed the guidewire with a 12.5 mm flexible reamer. I then placed a right 360 mm x 11 mm long trochanteric nail over the guidewire the guidewire was removed. We tapped this into position. The lateral aiming arm was attached. A stab incision was made and the lateral aiming arm was advanced the lateral aspect of the femur. Guidewire was placed in central aspect of the femoral head neck on both AP and lateral anum christian. This was measured and 120 mm helical blade was selected. The cortical drill was used to breach the cortex and the triple reamer was set at 120 and overreamed the guidewire. We then placed a helical blade over the guidewire. We then compressed the fracture site and left off a little bit of traction. This did compressed the fracture nicely. The proximal aiming arm was removed. some final proximal x-rays were obtained and attention was then drawn toward distal interlocking. Using a perfect enterprise technique a distal interlocking screw was placed in the dynamic hole. Stab incision was made. The drill was used under fluoroscopic guidance and a 52 mm distal interlocking screw was placed in the dynamic hole. This some final x-rays were obtained. Attention drawn to closing. All wounds irrigated extensively. I did inject locally with 30 cc of half percent Marcaine with epinephrine. The gluteal fascia was then closed with #1 Vicryl suture in a running fashion the subcutaneous tissues then closed with 2 layers the deep layer #1 Vicryl suture and subcutaneous tissues with 2-0 Dexon suture in a buried fashion. The skin was closed skin johnny. Leg was then cleaned and dried a sterile dressing was Xeroform, 4 fours, ABD pad and foam tape was applied. The patient was then taken off the fracture table. He was brought out of general esthesia and transferred to the recovery room in stable condition. The patient tolerated the procedure well and there are no complications. Octavia Díaz, my physician assistant director of residence life, was present for the entire procedure. His assistance was required for proper patient positioning, prepping and draping, surgical exposure, retraction, perform the technical details of the operation, placement of the implants, closure of the incision site, and placement of the sterile bandage. I attest to the content of the Intraoperative Record and any orders documented therein. Any exceptions are noted below.
[2024-10-07] MEDS ORDERED: HYDROmorphone INJ 1 MG/ML SYRINGE IV PRN (12:43)
[2024-10-07] MEDS ORDERED: FLUMAZENIL 0.1 MG/1 ML 10 ML VIAL IV PRN (12:43)
[2024-10-07] MEDS ORDERED: LABETALOL HCL IV 5 MG/ML 20ML IV PRN (12:43)
[2024-10-07] MEDS ORDERED: ePHEDrine sulfate 50 MG/ML AMP IV PRN (12:43)
[2024-10-07] MEDS ORDERED: ONDANSETRON INJ 2 MG/ML 2 ML VIAL IV PRN (12:43)
[2024-10-07] MEDS ORDERED: ATROPINE SULFATE 0.1 MG/ML 10ML SYR IV PRN (12:43)
[2024-10-07] MEDS ORDERED: NALOXONE HCL 0.4 MG/1 ML VIAL/CARP IV PRN (12:43)
--- NOTE | 2024-10-07 12:49 | Fluoroscopy Report ---
FL femur RT 2V CLINICAL HISTORY: RIGHT LONG TROCH NAIL COMPARISON STUDY: None FLUOROSCOPY TIME: 1.4 minutes FLUOROSCOPY IMAGES: 5 EXPOSURE DOSE: 21 mGy FINDINGS: Fluoroscopy was provided for placement of right femoral gamma nail. IMPRESSION: Intraoperative fluoroscopy. ACT 112: Negative or not required by law. Electronically signed by: Osvaldo Roy M.D. 10/07/2024 12:48 PM
[2024-10-07] MEDS: ONDANSETRON INJ 2 MG/ML 2 ML VIAL IV PRN (13:05)
[2024-10-07] MEDS: PROMETHAZINE HCL 6.25 MG in SODIUM CHLORIDE 0.9% 50 ML IV PRN (13:15)
[2024-10-07] MEDS: SODIUM CHLORIDE 0.9% 50 ML BAG ONE (13:25)
[2024-10-07] MEDS: PROMETHAZINE HCL INJ 25 MG/ML 1 ML VIAL ONE (13:25)
[2024-10-07] MEDS: fentaNYL citrate PF 100 MCG/2 ML VIAL IV PRN (13:26)
--- NOTE | 2024-10-07 13:47 | Anesthesiology Progress Note ---
Date of Service October 07, 2024 Anesthesia Post Procedure Vital Signs Vital Signs: Temp Pulse Pulse Pulse Resp BP BP 10/07/24 13:25 90 19 151/95 H 10/07/24 13:15 94 H 21 142/87 H 10/07/24 13:05 85 12 147/97 H 10/07/24 12:55 86 12 150/87 H 10/07/24 12:45 91 H 16 125/86 10/07/24 12:36 36.8 C 99 H 14 133/85 10/07/24 10:15 36.8 C 92 H 22 148/94 H 10/07/24 07:40 10/07/24 07:08 37.1 C 85 18 126/75 10/06/24 22:54 10/06/24 22:27 36.7 C 99 H 20 113/74 10/06/24 21:00 93 H 118/80 10/06/24 18:37 36.8 C 95 H 20 131/92 10/06/24 18:32 10/06/24 18:20 36.8 C 95 H 20 131/92 10/06/24 17:00 101 H 18 138/93 10/06/24 16:31 154/88 H 10/06/24 16:21 107 H 17 10/06/24 16:14 153/97 H 10/06/24 16:14 10/06/24 16:14 84 24 153/97 H 10/06/24 16:12 89 21 10/06/24 16:01 138/97 10/06/24 16:00 90 17 10/06/24 15:36 91 H 18 10/06/24 15:31 157/105 H 10/06/24 15:30 86 20 10/06/24 15:09 82 16 10/06/24 15:00 153/89 H 10/06/24 15:00 84 18 153/89 H 10/06/24 14:54 89 18 10/06/24 14:38 148/76 H 10/06/24 14:26 142/87 H 10/06/24 14:21 83 17 10/06/24 14:16 84 10/06/24 14:15 82 16 10/06/24 14:10 36.5 C 79 18 118/78 10/06/24 14:04 10/06/24 14:04 36.5 C 79 18 118/78 10/06/24 13:53 Pulse Ox O2 Del Method O2 Flow Rate 10/07/24 13:25 99 Room Air 10/07/24 13:15 99 Room Air 10/07/24 13:05 100 Room Air 10/07/24 12:55 95 Room Air 10/07/24 12:45 100 Oxymask 6 10/07/24 12:36 100 Oxymask 8 10/07/24 10:15 99 Room Air 10/07/24 07:40 Room Air 10/07/24 07:08 98 Room Air 10/06/24 22:54 Room Air 10/06/24 22:27 98 Room Air 10/06/24 21:00 10/06/24 18:37 100 Room Air 10/06/24 18:32 Room Air 10/06/24 18:20 100 Room Air 10/06/24 17:00 99 Room Air 10/06/24 16:31 10/06/24 16:21 92 10/06/24 16:14 10/06/24 16:14 Room Air 10/06/24 16:14 98 Room Air 10/06/24 16:12 96 10/06/24 16:01 10/06/24 16:00 98 10/06/24 15:36 88 L 10/06/24 15:31 10/06/24 15:30 98 10/06/24 15:09 99 10/06/24 15:00 10/06/24 15:00 99 Room Air 10/06/24 14:54 100 10/06/24 14:38 10/06/24 14:26 10/06/24 14:21 99 10/06/24 14:16 10/06/24 14:15 99 10/06/24 14:10 99 Room Air 99 10/06/24 14:04 Room Air 10/06/24 14:04 99 Room Air 10/06/24 13:53 99 Room Air Pain Intensity Right Hip: Pain Intensity: 3 Transfer of Care Handoff Completed per policy Notes Mental Status: alert / awake / arousable Patient Amnestic to Procedure: Yes Nausea / Vomiting: adequately controlled Pain: adequately controlled Airway Patency, RR, SpO2: stable & adequate BP & HR: stable & adequate Hydration State: stable & adequate Anesthetic Complications: no major complications apparent
[2024-10-07] MEDS: TRANEXAMIC ACID / 0.7% NACL 1000MG/100ML BAG IV ONE (14:42)
--- NOTE | 2024-10-07 17:20 | Hospitalist Progress Note ---
Date of Service October 07, 2024 Assessment & Plan (1) Fracture, intertrochanteric, right femur: (2) Fall from standing: (3) PAF (paroxysmal atrial fibrillation): Plan Tavo is an 84-year-old male with PMH of arthritis, paroxysmal atrial fibrillation (on Eliquis), HTN, CAD, aortic valve replacement, and right knee replacement. He presented via EMS on 10/06 after sustaining a ground-level fall. Patient lives alone. He was in the kitchen making lunch, when he started to feel "woozy" and knew that he was going to fall. He fell fell and struck his head, right shoulder, and right hip. He does not believe he lost consciousness. He was a trauma alert in the ED initial head/cervical spine CT are without acute findings. Right hip/pelvic x-ray revealed acute fracture of proximal right femur. 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 Work up below. Orthopedic surgery consulted - S/P right intramedullary nail with Dr. Mac 10/07 DVT prophy: Home Eliquis Pain control: scheduled tylenol, prn PO oxycodone PT/OT AM CBC, BMP, vitamin D level #Near Syncope/Hypertension Continue metoprolol BID. Resume losartan AM 10/08 pending AM labs TSH WNL Check Echo Check orthostatic VS #Diarrhea Ongoing x 6 weeks. Patient has been taking Colace at home but this is not a new medication. Denies associated abdominal pain Check stool bio fire. No recent antibiotics Suspect stool consistency will change with anesthesia/opioids. #Anemia Chronic - pt reports used to take Fe, but not recently. Baseline hgb ~12-13 Hgb 9.7 this morning - check B2/folate/Fe studies TSH WNL #History of TIA - continue aspirin, statin #Hypomagnesemia - repleted and resolved Disposition: continued inpatient stay, PT OT eval's and evaluating presyncopal event VTE PPx: Hold Eliquis family updated at bedside 129 Admission and Anticipated Discharge Date Admission Date: October 06, 2024 Supervising Physician Co-Signing Physician Notes PA Supervision Note: I did not personally see or examine the patient today, but I verified all alatorre points of MARYANN Willson's assessment and plan with the following exceptions/additions: None Subjective Tavo was seen lying in bed, granddaughter and daughter present at bedside. Patient is feeling very well postoperatively. States that he was standing in his kitchen counter cutting up fruit for lunch and had the strange is feeling, he is unable to fully describe it and then remembers falling. He denies getting diaphoretic, he also denies ringing in his ears. He denies loss of consciousness and then he had to crawl across the house to get to his phone. No history of diabetes. Took his morning medications that day and felt well in the morning and ate breakfast. Did fall about 2 to 3 years ago in the basement. Does have a history of TIA 10 to 12 years ago. Does report that he has been having diarrhea for 6 weeks, no new medication changes. Does take senna daily at home and has not stopped this in the setting of diarrhea. Denies any abdominal pain with the diarrhea. Review of Systems Review of Systems: All systems reviewed & are unremarkable except as noted in Subjective Physical Exam Physical Exam: General: NAD, VS as above, lying in bed very pleasant Resp: normal respiratory effort, lungs clear to auscultation, on room air CV: A-fib, no murmur, Abd: normal bowel sounds, non tender, no hepatosplenomegaly, Soft Extremities: right hip dressing clean dry and intact. Able to wiggle toes bilaterally. bruising noted to right middle finger knuckle Neuro: A&O x3, Results & Data Results & Data Vital Signs (Past 12 Hours) Vital Signs Temp Pulse Pulse Resp BP Pulse Ox O2 Del Method 10/07/24 16:11 98.2 F 103 H 19 148/96 H 93 Room Air 10/07/24 14:55 97.9 F 86 20 126/76 92 Room Air 10/07/24 14:25 97.9 F 86 20 139/79 99 Room Air 10/07/24 13:58 85 14 150/88 H 100 Room Air 10/07/24 13:45 86 14 158/94 H 100 Room Air 10/07/24 13:35 97.7 F 95 H 17 153/92 H 99 Room Air 10/07/24 13:25 90 19 151/95 H 99 Room Air 10/07/24 13:15 94 H 21 142/87 H 99 Room Air 10/07/24 13:05 85 12 147/97 H 100 Room Air 10/07/24 12:55 86 12 150/87 H 95 Room Air 10/07/24 12:45 91 H 16 125/86 100 Oxymask 10/07/24 12:36 98.2 F 99 H 14 133/85 100 Oxymask 10/07/24 10:15 98.2 F 92 H 22 148/94 H 99 Room Air 10/07/24 07:40 Room Air 10/07/24 07:08 98.8 F 85 18 126/75 98 Room Air O2 Flow Rate 10/07/24 16:11 10/07/24 14:55 10/07/24 14:25 10/07/24 13:58 10/07/24 13:45 10/07/24 13:35 10/07/24 13:25 10/07/24 13:15 10/07/24 13:05 10/07/24 12:55 10/07/24 12:45 6 10/07/24 12:36 8 10/07/24 10:15 10/07/24 07:40 10/07/24 07:08 Laboratory Results CBC and chemistry reviewed PG Care Time/CCT Total # of Minutes Spent Total Time Spent with Patient: Total time spent is greater than 50% in coordination of care (as documented) at patient's floor/unit and/or counseling patient: Coding Level of Care Code 16362 SUB INP/OBS CARE 3/50MIN Diagnoses Fracture, intertrochanteric, right femur S72.141A Fall from standing W19.XXXA PAF (paroxysmal atrial fibrillation) I48.0
[2024-10-07] MEDS: ACETAMINOPHEN 500 MG TAB PO SCH (17:42)
[2024-10-07] MEDS: ceFAZolin 2000MG 2,000 MG/15 ML SYR IV SCH (18:41)
[2024-10-07] MEDS: CYANOCOBALAMIN (B-12) 500 MCG TABLET PO SCH (20:39)
[2024-10-08 06:40] LABS: BUN Creatinine Ratio 18.4 (10-20); Calcium 8.3 mg/dl (8.6-10.3); Creatinine Clr Calc Pharmacy 58.6 ml/min; Potassium 4.3 mmol/L (3.5-5.1)
[2024-10-08 06:42] LABS: Hematocrit (blood only) 23.3 % (42.0-52.0); Hemoglobin 7.8 g/dl (14.0-18.0); Mean Corpuscular Hemoglobin 31.1 pg (25.0-34.0); Mean Corpuscular Hgb Conc 33.5 g/dL (32.0-36.0); Mean Corpuscular Volume 92.8 fL (80.0-100.0); Mean Platelet Volume 10.7 fL (9.4-12.4); Platelet Count 103 K/uL (130-400); RDW Coefficient of Variation 14.2 % (11.5-14.5); RDW Standard Deviation 47.9 fL (36.4-46.3); Red Blood Count 2.51 M/uL (4.70-6.10); White Blood Count 9.11 K/ul (4.8-10.8)
[2024-10-08 06:54] LABS: Basophils # (auto) 0.01 K/uL (0.00-0.20); Basophils % (auto) 0.1 %; Immature Granulocytes # (auto) 0.05 K/uL (0.01-0.20); Immature Granulocytes % (auto) 0.5 %; Lymphocytes # (auto) 0.66 K/uL (1.20-3.40); Lymphocytes % (auto) 7.2 %; Monocytes # (auto) 0.85 K/uL (0.11-0.59); Monocytes % (auto) 9.3 %; Neutrophils # (auto) 7.54 K/uL (1.40-6.50); Neutrophils % (auto) 82.9 %; RBC Morphology Unremarkable
[2024-10-08 06:59] LABS: Ferritin 90.8 ng/ml (8-388)
--- NOTE | 2024-10-08 07:03 | Orthopedic Progress Note ---
Date of Service October 08, 2024 Assessment & Plan (1) Fracture, intertrochanteric, right femur: Plan: 84-year-old male with multiple medical comorbidities postop day 1 from IM nailing of right inner troches fracture. Is got multiple other comorbidities include atrial fibrillation on chronic anticoagulation. He is doing pretty well this morning. He is a bit anemic but asymptomatic currently. His pain is controlled. He is neurologically intact. Plan: 1. DVT prophylaxis including thigh-high teds, SCDs, and back on his Eliquis. 2. PT/OT. Can fully weight-bear as tolerated. 3. Pain control. Really not complaining of much pain today. Pains controlled. 4. Medical management as per the medicine service. 5. Disposition. He is orthopedically okay for discharge anytime medically stable. Any orthopedic questions can be recommend [phone]. (2) Status post right knee replacement: (3) Non-occlusive coronary artery disease: (4) Acid reflux: (5) History of aortic valve replacement with bioprosthetic valve: (6) Benign essential hypertension: (7) PAF (paroxysmal atrial fibrillation): Admission and Anticipated Discharge Date Admission Date: October 06, 2024 Subjective 84-year-old gentleman postop day 1 from IM nailing of a right inner troches fracture. He also came in with quite a bit of back pain. He is feeling well this morning. He really did not have much hip pain. Back pain also seems to be improved. No chest pain or shortness of breath. Physical Exam Physical Exam: Physical examination was a pleasant elderly male. He is lying in bed and looks pretty comfortable. Is awake alert and oriented. Examination of the right leg reveals leg to be well aligned. Dressings are clean dry and intact he can dorsiflex and plantarflex his foot appropriately. He is neurologically intact. Results & Data Vital Signs (Past 12 Hours) Vital Signs Temp Pulse Resp BP BP Pulse Ox O2 Del Method 10/08/24 04:01 36.8 C 102 H 20 99/59 L 97 Room Air 10/07/24 22:47 36.7 C 92 H 20 99/68 L 98 Room Air Laboratory Results Hemoglobin is 7.8. Hematocrit is 23.3. Electrolytes are stable.
[2024-10-08 07:09] LABS: Folate (Folic Acid),Ser orPlas 21.15 ng/ml (>5.38)
[2024-10-08] MEDS: ASPIRIN 81 MG ECTAB PO SCH (09:12)
[2024-10-08] MEDS: CALCIUM CARBONATE 1250MG TAB PO SCH (09:13)
[2024-10-08] MEDS: LOSARTAN POTASSIUM 25 MG TAB PO SCH (09:13)
[2024-10-08] MEDS: CHOLECALCIFEROL 125 MCG (5,000 UNITS) TAB PO SCH (09:29)
[2024-10-08] MEDS: FERROUS SULFATE 325 MG TAB PO SCH (10:44)
[2024-10-08] MEDS: oxyCODONE HCL IR 5 MG TAB (IMMEDIATE RELEASE) PO PRN (11:30)
--- NOTE | 2024-10-08 12:44 | XCELERA ---
[id number]
--- NOTE | 2024-10-08 12:45 | Hospitalist Progress Note ---
Date of Service October 08, 2024 Assessment & Plan (1) Fracture, intertrochanteric, right femur: (2) Fall from standing: (3) PAF (paroxysmal atrial fibrillation): Plan Tavo is an 84-year-old male with PMH of arthritis, paroxysmal atrial fibrillation (on Eliquis), HTN, CAD, aortic valve replacement, and right knee replacement. He presented via EMS on 10/06 after sustaining a ground-level fall. Patient lives alone. He was in the kitchen making lunch, when he started to feel "woozy" and knew that he was going to fall. He fell fell and struck his head, right shoulder, and right hip. He does not believe he lost consciousness. He was a trauma alert in the ED initial head/cervical spine CT are without acute findings. Right hip/pelvic x-ray revealed acute fracture of proximal right femur. S/p right intramedullar nail with Dr. Mac 10/07. #acute right femur fracture/Age-related osteoporotic fracture of the right hip Orthopedic surgery consulted - S/P right intramedullary nail with Dr. Mac 10/07 DVT prophy: Home Eliquis Pain control: scheduled tylenol, prn PO oxycodone Vit D low (22.6) - take low dose supplementation combined with Calcium, will add 125mcq PO supplementation PT/OT - recommending rehab [facility] out today #Fall/Near Syncope/Hypertension Fall was not mechanical in nature, however denies LOC Continue metoprolol BID. Losartan held for low BPs. TSH WNL. Orthostatic VS WNL. Echo pending #Diarrhea Ongoing x 6 weeks. Patient has been taking Colace at home but this is not a new medication. Denies associated abdominal pain Check stool bio fire. No recent antibiotics no bowel movement since admission #Anemia Chronic - pt reports used to take Fe, but not recently. Baseline hgb ~12-13 TSH/folate WNL. B12 slightly elevated, okay to continue PO supplementation Peripheral smear confirms chronic anemia with concomitant iron deficiencyp.o. iron segmentation started AM CBC #History of TIA - continue aspirin, statin #Afib - Eliquis and metorpolol as above #Hypomagnesemia - repleted and resolved Disposition: continued inpatient stay, will need rehab, VTE PPx: Eliquis family updated at bedside 10/07 Admission and Anticipated Discharge Date Admission Date: October 06, 2024 Subjective Sitting up at the side of the bed, reports significant pain with therapy today. Did not take any as needed pain medicine prior. Has not had any further weird head/body sensation. No bowel movement since being here Will need rehab Review of Systems Review of Systems: All systems reviewed & are unremarkable except as noted in Subjective Physical Exam Physical Exam: General: NAD, VS as above, sitting up in the chair, very pleasant Resp: normal respiratory effort, lungs clear to auscultation, on room air CV: A-fib, 110s, ,no murmur, Abd: normal bowel sounds, non tender, no hepatosplenomegaly, Soft Extremities: right hip dressing clean dry and intact. Able to wiggle toes bilaterally. non pitting LE edema Neuro: A&O x3, Results & Data Results & Data Vital Signs (Past 12 Hours) Vital Signs Temp Pulse Resp BP BP Pulse Ox O2 Del Method 10/08/24 09:17 96 H 20 95/61 L 95 Room Air 10/08/24 07:18 98.2 F 101 H 20 115/70 97 Room Air 10/08/24 04:01 98.2 F 102 H 20 99/59 L 97 Room Air Laboratory Results CBC and chemistry reviewed B12, folate, vitamin D level reviewed Peripheral smear reviewed PG Care Time/CCT Total # of Minutes Spent Total Time Spent with Patient: Total time spent is greater than 50% in coordination of care (as documented) at patient's floor/unit and/or counseling patient: Coding Level of Care Code None Diagnoses Fracture, intertrochanteric, right femur S72.141A Fall from standing W19.XXXA PAF (paroxysmal atrial fibrillation) I48.0
[2024-10-08] MEDS: APIXABAN 5 MG TABLET PO SCH (14:12)
[2024-10-08 15:30] VITALS: BP 118/76; PULSE 94; RESP 18; TEMP 97.9; O2SAT 100
--- NOTE | 2024-10-08 15:39 | Discharge Summary ---
Discharge Summary Date of Service October 08, 2024 Principal Dx & Hospital Course #1 = Principal Diagnosis (1) Fracture, intertrochanteric, right femur: (2) Fall from standing: (3) PAF (paroxysmal atrial fibrillation): Plan #acute right femur fracture/Age-related osteoporotic fracture of the right hip Tavo is an 84-year-old male with PMH of arthritis, paroxysmal atrial fibrillation (on Eliquis), HTN, CAD, aortic valve replacement, and right knee replacement. He presented via EMS on 10/06 after sustaining a ground-level fall. Patient lives alone. He was in the kitchen making lunch, when he started to feel "woozy" and knew that he was going to fall. He fell fell and struck his head, right shoulder, and right hip. He does not believe he lost consciousness. He was a trauma alert in the ED initial head/cervical spine CT are without acute findings. Right hip/pelvic x-ray revealed acute fracture of proximal right femur. S/p right intramedullary nail with Dr. Mac 10/07. Will continue on Eliquis for DVT prevention. Vit D level low - pt is on low dose combined with calcium at baseline, high dose weekly x 8 weeks. PT/OT recommended rehab and was accepted at [facility] - discharged there 10/08. #Fall/Near Syncope/Hypertension Fall was not mechanical in nature, however denies LOC. Suspect was related to dehydration with continued diarrhea. TSH WNL. Orthostatic VS WNL. Echo unchanged from 05/2023, no RWMA, prosthetic valve well seated. Continue metoprolol BID, losartan. #Diarrhea Ongoing x 6 weeks. Patient has been taking Colace at home but this is not a new medication. Denies associated abdominal pain no bowel movement since admission - defer workup to PCP if recurs after current constipation resolves. #Anemia Chronic - Baseline hgb ~12-13 TSH/folate WNL. B12 slightly elevated, okay to continue PO supplementation Peripheral smear confirms chronic anemia with concomitant iron deficiencyp.o. iron segmentation started Repeat CBC 2-[address] [facility] F/u with PCP for further workup of iron deficiency anemia #History of TIA - continue aspirin, statin #Afib - Eliquis and metoprolol as above #Hypomagnesemia - repleted and resolved Disposition: discharge to [facility] today family updated at bedside 10/07 Notes For Next Care Provider patient reported chronic diarrhea x6 weeks with 3-4 stools per day - no BM while hospitalized, will be on bowel regiment post op but may need further investigation if recurs Needs further outpatient follow up of iron deficiency anemia-perhaps GI consultation Medication Changes From Visit PO Fe daily high dose vit d weekly x 8 weeks Admission HPI Per Admitting Provider Tavo is an 84-year-old male with PMH of arthritis, paroxysmal atrial fibrillation (on Eliquis), HTN, CAD, aortic valve replacement, and right knee replacement. He presented via EMS on 10/06 after sustaining a ground-level fall. Patient lives alone. He was in the kitchen making lunch, when he started to feel "woozy" and knew that he was going to fall. Patient reports he is feeling both dizziness, like the room spinning, and lightheaded just before falling. He fell fell and struck his head, right shoulder, and right hip. He does not believe he lost consciousness. He does not believe he tripped on anything, or his legs gave out on anything. After falling, patient was able to drag himself over to his armchair and reach his telephone. Patient does have history of falling around 2 years ago in his basement on the last step; he does report he felt "funny" and "woozy" prior to the fall as well. Patient ambulates with a walker outside, and cane inside at baseline. Patient took all his regular morning medicine today, including his Eliquis. Patient manages his own medicine at home; no recent change in medications. He rates the pain in his right thigh/hip as a 3/10 at present after receiving pain medicine in the ED. He characterizes it as a sharp, constant pain. No radiation down the leg or into the back. He denies any right shoulder pain at this time. Patient denies smoking, tobacco use, or recent alcohol use. Daughter at bedside does report patient has a history of TIAs. Patient denies PMH of [place], CHF, diabetes, or insulin use. Patient's vitals are stable at time of admission. Fentanyl and Zofran given en route ED course: Acetaminophen 1000 mg IV ROS: Patient endorses right hip pain, Patient denies fever, chills, night-sweats, headache, chest pain, SOB, cough, abdominal pain, N/V, burning with urination, blood in the urine/stool, or numbness/tingling in the right leg. Discharge Exam General: NAD, VS as above, sitting up in the chair, very pleasant Resp: normal respiratory effort, lungs clear to auscultation, on room air CV: A-fib, 110s, ,no murmur, Abd: normal bowel sounds, non tender, no hepatosplenomegaly, Soft Extremities: right hip dressing clean dry and intact. Able to wiggle toes bilaterally. non pitting LE edema Neuro: A&O x3, Discharge Plan Discharge Items Patient Disposition: Transfer Inpatient Rehab Fac Reason For Visit: R FEMUR FX Discharge Diagnosis: R femur fx Activity: As commented below Activity Comment: work with therapy to get stronger Non-emergency contact: Primary Care Provider Call non-emergency contact if: you have any medication questions, your symptoms worsen, your rectal temperature is above 100.4 and your temperature is above 101 Follow-up/Referrals: Christiano Mac MD [Physician] - (f/u as directed ) Haylee Hartley DO [Primary Care Provider] - (follow up after discharge from rehab ) Diet: Regular Addtl Attending Provider Instructions: Mr. Menezes You were hospitalized after a fall resulting in a right hip fracture, this was fixed in the OR on 10/[address] Mac. We have done a workup and suspect that your fall was related to dehydration due to diarrhea. If the diarrhea recurs after you are off pain medication - would recommend discussing with your PCP and stopping your Colace. Your blood counts (hemoglobin) was low - this was likely exacerbated by your surgery, but you also have underlying chronic anemia, and iron deficiency anemia. You have been started on oral iron supplementation. You also were found to have low vitamin D levels - you have been started on high dose Vitamin D that you can take once a week for the next 8 weeks. After that continue your home Calcium and vitamin D supplementation. Please follow up with your PCP after discharge from [facility]. The orthopedic office should contact you about follow up, if you do not hear from them, by next week the number is above. It was a PLEASURE taking care of you! hope you do well at rehab! For [facility]: Recommend checking CBC in 2-3 - hgb day of discharge 7.8. PO iron started. Pain control: scheduled tylenol 1g q8 and prn oxycodone 5mg No BM since surgery - recommend bowel regimen (our surgeons usually recommend q6H miralax POD #2 until having a bowel movement) Pending Studies at Discharge: No Stand-Alone Forms: My [facility] Skilled Items Patient informed of condition?: Yes DNR: No Discharge Level of Care: Acute rehab Communicable Disease: No Discharge Prognosis: Stable Lines: None Urinary Catheter: No Medications and DC Order Prescriptions: New polyethylene glycol 3350 [Miralax] 17 gram Powder In Packet 17 g PO Q6 Qty: 8 0RF ferrous sulfate 325 mg (65 mg iron) Tablet,Delayed Release (Dr/Ec) 325 mg PO QAM Qty: 30 0RF cholecalciferol (vitamin D3) 125 mcg (5,000 unit) Tablet 125 mcg PO Q7D Qty: 8 0RF Continued simvastatin [Zocor] 20 mg tablet 20 mg PO HS Qty: 90 3RF omeprazole 20 mg capsule,delayed release(DR/EC) 20 mg PO QAM Qty: 90 3RF Eliquis 5 mg tablet 5 mg PO BID 90 Days Qty: 180 3RF losartan 25 mg tablet 25 mg PO QAM Qty: 90 1RF buspirone 10 mg tablet 5 - 10 mg PO Q8H Qty: 90 0RF Rx Instructions: 1/2 to 1 pill orally Q 8 HR; patient takes 1/2 BID metoprolol tartrate 25 mg tablet 25 mg PO BID Qty: 180 3RF acetaminophen [Tylenol] 325 mg Tablet 2 tabs PO Q6H PRN (Reason: Pain) cyanocobalamin (vitamin B-12) [Vitamin B-12] 1,000 mcg Tablet 1,000 mcg PO HS calcium carbonate [Calcium 600] 600 mg calcium (1,500 mg) Tablet 600 mg PO QAM docusate sodium [Colace] 100 mg Capsule 100 mg PO QAM Glucosamine Chondroitin 550-30-1 mg Capsule 1 cap PO BID aspirin 81 mg Tablet,Delayed Release (Dr/Ec) 81 mg PO QAM Discharge Orders: Discharge Order (Routine); Ordered 10/08/24 Ordered By: Maribell Jones/Other Patient Handouts: Hip Surg Daily Tasks, After Hip Surgery- Getting Dressed Admission Data Admit Date/Time: 10/06/24 15:50 Attending Provider: Tammy Stringer Admit Provider: Rufus Gay Primary Care Provider: Haylee Hartley Other Providers: Christiano Mac; Rufus Gay; [facility] Other Interventions: Discharge Summary Assessment (RN) Last Done: 10/08/24 16:02 Hospital Stay Data Consultations 10/06/24 15:21 Consult Orthopedic Surgery Routine 10/06/24 15:27 ED Decision to Admit Stat Procedures Performed Operation Date: 10/07/24 11:00 Actual Procedures p Intramedullary nailing of right hip fracture - Christiano Mac MD Diagnostic Imagining Performed Hip/Pelvis X-Ray 10/06/24 13:52 XR hip RT 2V w pelvis CLINICAL HISTORY: R hip pain s/p fall from standing COMPARISON: 04/23/2023 FINDINGS: There is an acute mildly displaced mildly comminuted intertrochanteric fracture proximal right femur. No other fracture or dislocation seen. IMPRESSION: Acute fracture proximal right femur. ACT 112: Negative or not required by law. Electronically signed by: Osvaldo Roy M.D. 10/06/2024 2:[address] 10/06/24 13:53 CT cervical spine wo con CT DOSE: 1161.03 mGy.cm CLINICAL HISTORY: fall from standing. COMPARISON: 05/28/2013 TECHNIQUE: Multiple axial CT images of the cervical spine were obtained without contrast. A dose lowering technique was utilized adhering to the principles of ALARA. FINDINGS: There is severe diffuse degenerative disc disease. There is stable grade 1 anterolisthesis of C7 on T1. No fracture seen. IMPRESSION: No cervical spine fracture seen. ACT 112: Negative or not required by law. The above report was generated using voice recognition software. It may contain grammatical, syntax or spelling errors. Electronically signed by: Osvaldo Roy M.D. 10/06/2024 2:54 PM Chest X-Ray 10/06/24 13:53 XR chest 1V portable CLINICAL HISTORY: dizziness COMPARISON STUDY: Chest radiograph January 07, 2024. FINDINGS: Right shoulder arthroplasty is incidentally noted. There are median sternotomy wires and a prosthetic cardiac valve. Cardiomegaly is unchanged. There is no evidence for pulmonary edema. No pneumothorax or pleural effusion. No consolidation to suggest pneumonia. IMPRESSION: No acute cardiopulmonary findings. No change in appearance of the chest. ACT 112: Negative or not required by law. Electronically signed by: Edward Vo M.D. 10/06/2024 2:[address] 10/06/24 13:53 CT OF THE HEAD WITHOUT CONTRAST CLINICAL HISTORY: fall from standing COMPARISON STUDY: Head CT April 23, 2023. TECHNIQUE: Helical axial images of the head were obtained without IV contrast. Automated exposure control was utilized for the study. A dose lowering technique was utilized adhering to the principles of ALARA. FINDINGS: No acute intracranial hemorrhage, midline shift or mass effect is present. The ventricular system is stable. 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 The basal cisterns are patent. No extra-axial collections are present. There are no findings to suggest acute dural sinus thrombosis or acute territorial infarct. No significant calvarial abnormalities are present. Visualized portions of the sinuses and mastoid air cells are clear. IMPRESSION: 1. No acute intracranial findings. No change in appearance of the brain. 2. No calvarial fractures. ACT 112: Negative or not required by law. Electronically signed by: Edawrd Vo M.D. 10/06/2024 2:50 PM Shoulder X-Ray 10/06/24 14:01 XR shoulder RT min 2V routine CLINICAL HISTORY: R arm ecchymosis and pain COMPARISON: 11/10/2021 FINDINGS: Right shoulder prosthesis shows no hardware complication. No fracture or dislocation. 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 IMPRESSION: No acute findings. ACT 112: Negative or not required by law. Electronically signed by: Osvaldo Roy M.D. 10/06/2024 2:23 PM Femur X-Ray 10/07/24 00:00 FL femur RT 2V CLINICAL HISTORY: RIGHT LONG TROCH NAIL COMPARISON STUDY: None FLUOROSCOPY TIME: 1.4 minutes FLUOROSCOPY IMAGES: 5 EXPOSURE DOSE: 21 mGy FINDINGS: Fluoroscopy was provided for placement of right femoral gamma nail. IMPRESSION: Intraoperative fluoroscopy. ACT 112: Negative or not required by law. Electronically signed by: Osvaldo Roy M.D. 10/07/2024 12:48 PM Discharge Instructions Given to Patient (Per Discharging Provider) Mr. Menezes You were hospitalized after a fall resulting in a right hip fracture, this was fixed in the OR on 10/[address] Mac. We have done a workup and suspect that your fall was related to dehydration due to diarrhea. If the diarrhea recurs after you are off pain medication - would recommend discussing with your PCP and stopping your Colace. Your blood counts (hemoglobin) was low - this was likely exacerbated by your surgery, but you also have underlying chronic anemia, and iron deficiency anemia. You have been started on oral iron supplementation. You also were found to have low vitamin D levels - you have been started on high dose Vitamin D that you can take once a week for the next 8 weeks. After that continue your home Calcium and vitamin D supplementation. Please follow up with your PCP after discharge from [facility]. The orthopedic office should contact you about follow up, if you do not hear from them, by next week the number is above. It was a PLEASURE taking care of you! hope you do well at rehab! For [facility]: Recommend checking CBC in 2-3 - hgb day of discharge 7.8. PO iron started. Pain control: scheduled tylenol 1g q8 and prn oxycodone 5mg No BM since surgery - recommend bowel regimen (our surgeons usually recommend q6H miralax POD #2 until having a bowel movement) Supervising Physician Co-Signing Physician Notes PA Supervision Note: I personally saw and examined the patient. I verified all alatorre points and agree with MARYANN Willson with the following exceptions and/or additions: S-Pt feeling well, no CP< SOB. Pain controlled O- Vitals reviewed Gen: [AAOx3, NAD] HEENT: [anicteric sclerae, EOMI] CV: [RRR no mgr nl S1S2] Pulm: [CTAB no wcr] Abd: [+BS soft NT ND no masses or hernias] CBC, BMP reviewed A/P-84 yo male here with fall and right hip fracture, anemia which is acute blood loss anemia on anemia of chronic dz and Fe def anemia. Needs further workup as outpt for anemia Dc to rehab Total Time Total Time Spent Total Time Spent (In Minutes): Time spent day of discharge 40 minutes including direct patient care, medication reconciliation, documentation, review of labs and images, and coordination of care. Coding Level of Care Code 99393 INP/OBS DISCH >30 MIN Diagnoses Fracture, intertrochanteric, right femur S72.141A Fall from standing W19.XXXA PAF (paroxysmal atrial fibrillation) I48.0
[2024-10-09] MEDS ORDERED: POLYETHYLENE (MIRALAX) 17 GM PACK PO SCH (18:00)
== END 2024-10-08 17:00 | DRG 482 ==
LOC: ED 13:41 → 3W 15:50 → SUATTDRO 15:50 → 3W 17:57